=== PATIENT | female | born 1935 | race Caucasian/White ===

== ENCOUNTER → 2023-05-10 14:40 | Outpatient (REF) | payer MEDICARE, OTHER, SELFPAY | LOC: RCS 14:40 | PROVIDERS: ATTENDING PHYSICIAN Family Medicine | DX: I49.8 Other specified cardiac arrhythmias (principal) | CPT/HCPCS: 93005 ==

== ENCOUNTER → 2023-06-21 12:17 | Outpatient (REF) | payer MEDICARE, OTHER, SELFPAY ==
[2023-06-21 15:59] LABS: % Basophils 0.4 % (0-2); % Immature Granulocytes 0.7 % (0-0.5); % Lymphocytes 12.7 % (20.5-51.1); % Monocytes 6.9 % (1.7-9.3); % Neutrophils 78.3 % (42.2-75.2); Absolute Basophils 0.1 10^3/uL (0-0.2); Absolute Eosinophils 0.1 10^3/uL (0-0.7); Absolute Immature Granulocytes 0.1 10^3/uL (0-0.05); Absolute Lymphocytes 1.6 10^3/uL (1.2-3.4); Absolute Monocytes 0.9 10^3/uL (0.1-0.6); Hematocrit 33.9 % (37.0-47.0); Mean Corp Hgb Conc. 29.5 g/dL (33.0-37.0); Mean Corpuscular Hgb 26.9 pg (27.0-31.0); Mean Corpuscular Volume 91.1 fL (81.0-99.0); Nucleated Red Blood Cells % 0 %; Platelet Count 220 10^3/uL (130-400); Red Blood Cell Count 3.72 10^6/uL (4.20-5.40); Red Cell Dist. Width 16.6 % (11.5-14.5); White Blood Cell Count 12.8 10^3/uL (4.8-10.8)
[2023-06-21 16:11] LABS: D-Dimer 0.43 ug/mlFEU (0.00-0.50); Iron 48 ug/dl (37-170)
[2023-06-21 16:20] LABS: Percent Saturation 14 % (20-50); Total Iron Binding Capacity 337 ug/dl (265-497)
[2023-06-21 16:45] LABS: Ferritin 9.3 ng/ml (11.1-264.0)
== END ==
LOC: HWLAB 12:17
PROVIDERS: ATTENDING PHYSICIAN Internal Medicine Hematology & Oncology; FAMILY PHYSICIAN Family Medicine
DX: D47.2 Monoclonal gammopathy (principal); I82.401 Acute embolism and thrombosis of unspecified deep veins of right lower extremity; I82.4Z2 Acute embolism and thrombosis of unspecified deep veins of left distal lower extremity; D68.69 Other thrombophilia; E87.8 Other disorders of electrolyte and fluid balance, not elsewhere classified; D35.2 Benign neoplasm of pituitary gland
CPT/HCPCS: 36415; 82728; 83540; 83550; 85025; 85379

== ENCOUNTER → 2023-06-28 15:21 | Outpatient (REF) | payer MEDICARE, OTHER, SELFPAY ==
[2023-06-28 17:18] LABS: % Basophils 0.5 % (0-2); % Eosinophils 0.5 % (0-6); % Immature Granulocytes 0.9 % (0-0.5); % Lymphocytes 12.3 % (20.5-51.1); % Monocytes 4.6 % (1.7-9.3); % Neutrophils 81.2 % (42.2-75.2); Absolute Basophils 0.1 10^3/uL (0-0.2); Absolute Eosinophils 0.1 10^3/uL (0-0.7); Absolute Immature Granulocytes 0.1 10^3/uL (0-0.05); Absolute Lymphocytes 1.4 10^3/uL (1.2-3.4); Absolute Monocytes 0.5 10^3/uL (0.1-0.6); Absolute Neutrophils 8.9 10^3/uL (1.4-6.5); Hematocrit 35.2 % (37.0-47.0); Hemoglobin 10.7 g/dL (12.0-16.0); Mean Corp Hgb Conc. 30.4 g/dL (33.0-37.0); Mean Corpuscular Hgb 26.8 pg (27.0-31.0); Mean Platelet Volume 10.7 fL (7.4-10.4); Nucleated Red Blood Cells % 0 %; Platelet Count 253 10^3/uL (130-400); Red Cell Dist. Width 17.2 % (11.5-14.5); White Blood Cell Count 10.9 10^3/uL (4.8-10.8)
[2023-06-28 17:43] LABS: Vitamin D, 25-OH*** 53.3 ng/mL (30-80)
== END ==
LOC: OIDL 15:21
PROVIDERS: ATTENDING PHYSICIAN Nurse Practitioner Adult Health
DX: D47.2 Monoclonal gammopathy (principal); I82.401 Acute embolism and thrombosis of unspecified deep veins of right lower extremity; I82.4Z2 Acute embolism and thrombosis of unspecified deep veins of left distal lower extremity; D68.69 Other thrombophilia; D50.9 Iron deficiency anemia, unspecified; E55.9 Vitamin D deficiency, unspecified
CPT/HCPCS: 82306; 85025

== ENCOUNTER → 2023-07-05 15:58 | Outpatient (REF) | payer MEDICARE, OTHER, SELFPAY ==
[2023-07-05 14:55] LABS: % Basophils 0.2 % (0-2); % Eosinophils 0.5 % (0-6); % Immature Granulocytes 1.4 % (0-0.5); % Lymphocytes 10.6 % (20.5-51.1); % Monocytes 5.7 % (1.7-9.3); % Neutrophils 81.6 % (42.2-75.2); Absolute Eosinophils 0.1 10^3/uL (0-0.7); Absolute Immature Granulocytes 0.2 10^3/uL (0-0.05); Absolute Lymphocytes 1.6 10^3/uL (1.2-3.4); Absolute Monocytes 0.8 10^3/uL (0.1-0.6); Hemoglobin 10.8 g/dL (12.0-16.0); Mean Corpuscular Hgb 27.3 pg (27.0-31.0); Mean Corpuscular Volume 91.1 fL (81.0-99.0); Mean Platelet Volume 10.4 fL (7.4-10.4); Platelet Count 222 10^3/uL (130-400); Red Blood Cell Count 3.95 10^6/uL (4.20-5.40); Red Cell Dist. Width 18.7 % (11.5-14.5); White Blood Cell Count 14.7 10^3/uL (4.8-10.8)
[2023-07-05 16:30] LABS: Phosphorus 2.1 mg/dl (2.5-4.5)
== END ==
LOC: OIDL 15:58
PROVIDERS: ATTENDING PHYSICIAN Internal Medicine Hematology & Oncology
DX: D47.2 Monoclonal gammopathy (principal)
CPT/HCPCS: 84100; 85025

== ENCOUNTER → 2023-07-18 18:31 | Outpatient (REF) | payer MEDICARE, OTHER, SELFPAY | LOC: MRI 18:31 | PROVIDERS: ATTENDING PHYSICIAN Family Medicine | DX: M54.16 Radiculopathy, lumbar region (principal) | CPT/HCPCS: 72148 ==

== ENCOUNTER → 2023-07-28 10:06 | Outpatient (REF) | payer MEDICARE, OTHER, SELFPAY ==
[2023-07-28 12:15] LABS: ALT (SGPT) 62 U/L (0-35); AST (SGOT) 61 U/L (14-36); Albumin 4.4 g/dl (3.5-5.0); Alkaline Phosphatase 285 U/L (38-126); Blood Urea Nitrogen 18 mg/dl (7-17); Calcium 10.5 mg/dl (8.4-10.2); Carbon Dioxide 23 mmol/L (22-30); Chloride 111 mmol/L (98-107); Glucose 75 mg/dl (70-99); Potassium 3.8 mmol/L (3.5-5.1); Sodium 142 mmol/L (135-145); Total Bilirubin 0.6 mg/dl (0.2-1.3); Total Protein 6.7 g/dl (6.3-8.2); eGFR 49.24
[2023-07-28 12:33] LABS: Vitamin D, 25-OH*** 51.5 ng/mL (30-80)
== END ==
LOC: REG 10:06
PROVIDERS: ATTENDING PHYSICIAN Internal Medicine Endocrinology, Diabetes & Metabolism; FAMILY PHYSICIAN Family Medicine
DX: D49.7 Neoplasm of unspecified behavior of endocrine glands and other parts of nervous system (principal); E03.9 Hypothyroidism, unspecified; E27.40 Unspecified adrenocortical insufficiency; E55.9 Vitamin D deficiency, unspecified
CPT/HCPCS: 36415; 80053; 82306; 84439

== ENCOUNTER → 2023-08-03 11:57 | Outpatient (REF) | payer MEDICARE, OTHER, SELFPAY | LOC: MRI 3T 11:57 | PROVIDERS: ATTENDING PHYSICIAN Neurological Surgery; FAMILY PHYSICIAN Family Medicine | DX: D35.2 Benign neoplasm of pituitary gland (principal) | CPT/HCPCS: 70553; A9575 ==

== ENCOUNTER 2023-08-07 15:24 | Inpatient (IN) | payer MEDICARE, OTHER, SELFPAY ==
[2023-08-07] VITALS (10 sets, daily range): BP systolic 123–163; BP diastolic 64–83; BMI 31.8
--- NOTE | 2023-08-07 09:38 | ED.GENMED ---
History of Present Illness
<GOLDEN Arauz - Last Filed: 08/08/23 10:15>
General
Chief Complaint: Skin Problem
Source: patient
Exam Limitations: none
Time Seen by Provider: 08/07/23 09:00
Nursing documentation reviewed up to this point in time: agreed with
Travel History
Have you had any contact with someone who has COVID-19?: No
Do you have any symptoms of coronavirus? Fever > 100 degrees, chills, cough, shortness of breath, sore throat, loss of taste or smell, muscle aches, or headache?: No
History of Present Illness
History of Present Illness:
87-year-old female presents to the ER from [facility] for evaluation. Patient is chronic back pain and wanted to come to the ER today because of worsening low back pain. This is not new. She is followed by pain management and has had Epidural
She also reports that she noticed her legs were oozing and swollen. She does noticed redness to the left leg. She has a previous right leg DVT and Eliquis was just stopped July 27. She denies any recent injury fever chills
Past History
<GOLDEN Arauz - Last Filed: 08/08/23 10:15>
Past History
ED Past Medical History: Hypothyroidism and Other (Pituitary mass, constipation, adrenal insufficiency)
ED Past Surgical History: Cholecystectomy and Orthopedic
Social History
Tobacco: Non-smoker
Drug: None
Personal:
Living: with family
Employment: Retired
Family History
Family History: Other (No significant)
Review of Systems
<GOLDEN Arauz - Last Filed: 08/08/23 10:15>
Review of Systems
Allergies reviewed?: Yes
All Other Systems: ROS reviewed and negative except as documented in HPI and ROS
Constitutional: Denies fever, fatigue or chills
Respiratory: Reports no symptoms
Cardiac: Reports no symptoms
ABD/GI: Reports no symptoms
Musculoskeletal: Reports other ( legs oozing left greater then right + redness to left leg lchronic back pain )
Skin: Reports other (redness to left leg )
Neurological: Reports no symptoms
Hematologic/Lymphatic: Reports no symptoms
Psychiatric: Reports no symptoms
Phy Exam
<GOLDEN Arauz - Last Filed: 08/08/23 10:15>
General Physical Exam
General Presentation: no apparent distress
General age: appears stated age
General Skin: warm and dry
General Habitus: normal
General Mental: alert
General Hydration: appears well hydrated
Cardiovascular Exam
Cardiovascular Exam: regular rate/rhythm
Pulmonary Exam
Pulmonary Exam: lungs clear and no respiratory distress
Neurological Exam
Neurological Exam: alert and oriented x3
Musculoskeletal Exam
Musculoskeletal Exam: other (Normal inspection of back slight swelling bilateral lower extremities slight redness about lower extremities worse more on the left, left leg is redness to left lower leg and left thigh)
Skin Exam
Skin Exam: normal color and warm/dry
Psychiatric Exam
Psychiatric Exam: normal mood/affect
Course
<GOLDEN Arauz - Last Filed: 08/08/23 10:15>
Orders/Labs/Results
Orders:
Orders
08/07/23 09:37
IV Insert/Care/Rem.- Treatment PRN
Venous Doppler Lwr Ext Bilat [US Periph Venous LOWER Ext Nir] Urgent
Comment:
Reason For Exam: swelling
08/07/23 Lunch
Regular
At Your Request: Limited Participation
Does patient need a safe tray?: No
08/07/23 11:45
Complete Blood Count/With Diff Urgent
Comprehensive Metabolic Panel Urgent
08/07/23 13:47
CeFAZolin 1 GRAM [Ancef] 1 gram in 5 ml IV NOW
08/07/23 13:53
Lactic Acid Q4H
Comment: CANCEL 2nd LACTIC ACID IF 1st LACTIC ACID IS LESS THAN 2
Blood Culture Q30M
ROX Source: Blood/Venous
Specimen Description:
Blood Culture Q30M
ROX Source: Blood/Venous
Specimen Description:
08/07/23 14:45
Potassium Chloride [KCl] 40 meq PO NOW STA
08/07/23 14:59
Oxycodone [Roxicodone] 5 mg PO NOW STA
08/07/23 15:01
Admit/Transfer Patient As Directed
Co-Sign Provider:
Level of Care: Inpatient admission
Assign to:: Medical/Surgical
Physician / Group: hunter fernandes
Diagnosis: LLE cellulitis
Reason for Hospitalization: LLE cellulitis
Expected length of stay greater than two midnights?: Yes
ELOS- Estimated Length of Stay in days: 2
I certify the patient meets the requirements for IP care: Yes
08/07/23 15:02
Code Status As Directed
Resuscitation Status: Full Code
08/07/23 16:07
Acetaminophen [Tylenol] 1,000 mg PO QIDPRN PRN
Ondansetron Injectable [Zofran] 4 mg IV Q6HPRN PRN
Oxycodone [Roxicodone] 5 mg PO Q4HPRN PRN
08/07/23 16:07
Activity As Directed
Activity Level: Ambulate
Vital Signs As Directed
Frequency: Per unit guidelines
Pt Eval And Treat Routine
Activity Level: Ambulate
DX Deep Vein Thrombosis Video Routine
08/07/23 16:45
Tramadol HCl [Ultram] 100 mg PO Q8
08/07/23 18:00
Enoxaparin Sodium [Lovenox] 40 mg SC QPM
08/07/23 22:00
CeFAZolin 1 GRAM [Ancef] 1 gram in 5 ml IV Q8H
08/08/23 05:21
Basic Metabolic Panel IN AM
Complete Blood Count/No Diff IN AM
Magnesium IN AM
08/08/23 06:00
Levothyroxine [Synthroid] 50 mcg PO DAILY @ 0600
08/08/23 08:00
Calcium Polycarbophil [Fibercon] 625 mg PO DAILY
Desmopressin [Ddavp] 0.05 mg PO Q48H
Polyethylene Glycol Powder [Miralax] 17 grams PO DAILY
Prednisone [Deltasone] 10 mg PO DAILY
08/09/23 06:00
Basic Metabolic Panel IN AM
08/10/23 06:00
Basic Metabolic Panel IN AM
Abnormal Lab Results
08/07/23
11:45
MCHC 32.9 L g/dL
(33.0-37.0)
RDW 20.4 H %
(11.5-14.5)
MPV 10.6 H fL
(7.4-10.4)
Abs Immat Gran (auto) 0.1 H 10^3/uL
(0-0.05)
Absolute Monos (auto) 1.1 H 10^3/uL
(0.1-0.6)
Immature Gran % 1.3 H %
(0-0.5)
Monocytes % 11.2 H %
(1.7-9.3)
Sodium 146 H mmol/L
(135-145)
Potassium 3.2 L mmol/L
(3.5-5.1)
Chloride 109 H mmol/L
(98-107)
AST 42 H U/L
(14-36)
ALT 82 H U/L
(0-35)
Alkaline Phosphatase 401 H U/L
(38-126)
08/07/23 11:45
08/07/23 11:45
Vital Signs
Initial and Last Documented VS:
Initial Vital Signs
Temp Pulse Resp BP Pulse Ox
98.4 F 55 16 163/76 98
08/07/23 08:52 08/07/23 08:52 08/07/23 08:52 08/07/23 08:52 08/07/23 08:52
Last Documented Vital Signs
Temp Pulse Resp BP Pulse Ox
97.9 F 54 16 111/68 95
08/08/23 07:40 08/08/23 07:40 08/08/23 07:40 08/08/23 07:40 08/08/23 07:40
Fish Cleaner consulted with Physician
Fish Cleaner consulted with physician?: Yes
Name of Physician Consulted: Anatoly
<Andrea Lombardi MD - Last Filed: 08/07/23 13:24>
Orders/Labs/Results
Orders:
Orders
08/07/23 09:37
IV Insert/Care/Rem.- Treatment PRN
Venous Doppler Lwr Ext Bilat [US Periph Venous LOWER Ext Nir] Urgent
Comment:
Reason For Exam: swelling
08/07/23 Lunch
Regular
At Your Request: Limited Participation
Does patient need a safe tray?: No
08/07/23 11:45
Complete Blood Count/With Diff Urgent
Comprehensive Metabolic Panel Urgent
08/07/23 13:47
CeFAZolin 1 GRAM [Ancef] 1 gram in 5 ml IV NOW
08/07/23 13:53
Lactic Acid Q4H
Comment: CANCEL 2nd LACTIC ACID IF 1st LACTIC ACID IS LESS THAN 2
Blood Culture Q30M
ROX Source: Blood/Venous
Specimen Description:
Blood Culture Q30M
ROX Source: Blood/Venous
Specimen Description:
08/07/23 14:45
Potassium Chloride [KCl] 40 meq PO NOW STA
08/07/23 14:59
Oxycodone [Roxicodone] 5 mg PO NOW STA
08/07/23 15:01
Admit/Transfer Patient As Directed
Co-Sign Provider:
Level of Care: Inpatient admission
Assign to:: Medical/Surgical
Physician / Group: hunter fernandes
Diagnosis: LLE cellulitis
Reason for Hospitalization: LLE cellulitis
Expected length of stay greater than two midnights?: Yes
ELOS- Estimated Length of Stay in days: 2
I certify the patient meets the requirements for IP care: Yes
08/07/23 15:02
Code Status As Directed
Resuscitation Status: Full Code
08/07/23 16:07
Acetaminophen [Tylenol] 1,000 mg PO QIDPRN PRN
Ondansetron Injectable [Zofran] 4 mg IV Q6HPRN PRN
Oxycodone [Roxicodone] 5 mg PO Q4HPRN PRN
08/07/23 16:07
Activity As Directed
Activity Level: Ambulate
Vital Signs As Directed
Frequency: Per unit guidelines
Pt Eval And Treat Routine
Activity Level: Ambulate
DX Deep Vein Thrombosis Video Routine
08/07/23 16:45
Tramadol HCl [Ultram] 100 mg PO Q8
08/07/23 18:00
Enoxaparin Sodium [Lovenox] 40 mg SC QPM
08/07/23 22:00
CeFAZolin 1 GRAM [Ancef] 1 gram in 5 ml IV Q8H
08/08/23 05:21
Basic Metabolic Panel IN AM
Complete Blood Count/No Diff IN AM
Magnesium IN AM
08/08/23 06:00
Levothyroxine [Synthroid] 50 mcg PO DAILY @ 0600
08/08/23 08:00
Calcium Polycarbophil [Fibercon] 625 mg PO DAILY
Desmopressin [Ddavp] 0.05 mg PO Q48H
Polyethylene Glycol Powder [Miralax] 17 grams PO DAILY
Prednisone [Deltasone] 10 mg PO DAILY
08/09/23 06:00
Basic Metabolic Panel IN AM
08/10/23 06:00
Basic Metabolic Panel IN AM
Abnormal Lab Results
08/07/23
11:45
MCHC 32.9 L g/dL
(33.0-37.0)
RDW 20.4 H %
(11.5-14.5)
MPV 10.6 H fL
(7.4-10.4)
Abs Immat Gran (auto) 0.1 H 10^3/uL
(0-0.05)
Absolute Monos (auto) 1.1 H 10^3/uL
(0.1-0.6)
Immature Gran % 1.3 H %
(0-0.5)
Monocytes % 11.2 H %
(1.7-9.3)
Sodium 146 H mmol/L
(135-145)
Potassium 3.2 L mmol/L
(3.5-5.1)
Chloride 109 H mmol/L
(98-107)
AST 42 H U/L
(14-36)
ALT 82 H U/L
(0-35)
Alkaline Phosphatase 401 H U/L
(38-126)
08/07/23 11:45
08/07/23 11:45
Vital Signs
Initial and Last Documented VS:
Initial Vital Signs
Temp Pulse Resp BP Pulse Ox
98.4 F 55 16 163/76 98
08/07/23 08:52 08/07/23 08:52 08/07/23 08:52 08/07/23 08:52 08/07/23 08:52
Last Documented Vital Signs
Temp Pulse Resp BP Pulse Ox
97.9 F 54 16 111/68 95
08/08/23 07:40 08/08/23 07:40 08/08/23 07:40 08/08/23 07:40 08/08/23 07:40
<GOLDEN Arauz - Last Filed: 08/08/23 10:15>
MDM/Problems Addressed
Differential Diagnosis Includes:
not limited to: edema, dvt, cellulitis acute on chronic back pain
MDM/Problems Addressed:
Patient is an 87-year-old female who presents from [facility] with acute exacerbation of chronic low back pain with no acute injury. Denies any recent fever or chills. In addition she complains of bilateral swelling of lower extremity. She
does h ave a history of prior DVT however anticoagulation was recently stopped. Ultrasound done and negative. Left lower extremity does have redness consistent with cellulitis. With cellulitis and back pain will admit IV antibiotics ordered will
likely need PT. Patient is afebrile non toxic appearing
Chronic conditions affecting care:
chronic back pain ,hx of dvt
<GOLDEN Arauz - Last Filed: 08/08/23 10:15>
*Critical Care Note
Total Time (30-74mins, 75-104mins- exclusive of procedures): Not Applicable
ED Attending Note
<GOLDEN Arauz - Last Filed: 08/08/23 10:15>
-
Portions of this chart may have been created with voice recognition software.� Occasional wrong word or��sound alike� substitutions may have occurred due to the inherent limitations of voice recognition software.
<Andrea Lombardi MD - Last Filed: 08/07/23 13:24>
ED Attending Note
Patient seen and examined by attending physician: Yes
I performed the substantive portion of visit, reviewed & personally made and approve the management plan that is documented in note by myself or ISIDORO.: Yes
ED Attending Note:
87-year-old female 2 complaints. Chronic back pain that is worse and weeping from the left leg. No fever chills or other complaints
Patient with erythema to left lower leg. Motor or sensory neurovascular intact. No cord. Significant back pain with the active sitting up. Nonfocal. Abdomen is soft and nontender.
Cellulitis left lower leg. Acute on chronic back pain.
Discharge Plan
Departure
Patient Disposition: Admit
Date of Disposition: 08/07/23
Time of Disposition: 13:44
Admit to: Med/Surg
Admit to doctor: hospitalist
Presentation/result/management discussed w/ accepting MD/DO: Hospitalist
Patient with high blood pressure during this ER visit?: Yes
Condition: Fair
Covid-19: Not Applicable
Discharge Problem:
Cellulitis, Acute exacerbation of chronic low back pain
Interventions
Interventions:
*Risk Screen - Suicide Last Done: 08/07/23 09:01
*General Assessment Last Done: 08/07/23 09:01
*Neglect/Abuse Screening Last Done: 08/07/23 09:01
ED- Fall Risk Assessment Last Done: 08/07/23 09:01
*ED COVID-19 Vaccine History Last Done: 08/07/23 08:52
*Nursing Disposition Last Done: 08/07/23 16:13
ED-Skin Assessment Last Done: 08/07/23 09:01
Discharge Date and Time
Discharge Date/Time: 08/07/23 16:13
[2023-08-07 11:57] LABS: % Basophils 0.3 % (0-2); % Eosinophils 1.3 % (0-6); % Immature Granulocytes 1.3 % (0-0.5); % Monocytes 11.2 % (1.7-9.3); % Neutrophils 58.9 % (42.2-75.2); Absolute Eosinophils 0.1 10^3/uL (0-0.7); Absolute Immature Granulocytes 0.1 10^3/uL (0-0.05); Absolute Lymphocytes 2.7 10^3/uL (1.2-3.4); Absolute Monocytes 1.1 10^3/uL (0.1-0.6); Hemoglobin 13.8 g/dL (12.0-16.0); Mean Corp Hgb Conc. 32.9 g/dL (33.0-37.0); Mean Corpuscular Hgb 29.4 pg (27.0-31.0); Mean Corpuscular Volume 89.4 fL (81.0-99.0); Mean Platelet Volume 10.6 fL (7.4-10.4); Nucleated Red Blood Cells % 0 %; Platelet Count 181 10^3/uL (130-400); Red Cell Dist. Width 20.4 % (11.5-14.5); White Blood Cell Count 10.1 10^3/uL (4.8-10.8)
[2023-08-07 12:13] LABS: ALT (SGPT) 82 U/L (0-35); AST (SGOT) 42 U/L (14-36); Albumin 4.5 g/dl (3.5-5.0); Alkaline Phosphatase 401 U/L (38-126); Blood Urea Nitrogen 17 mg/dl (7-17); Calcium 9.6 mg/dl (8.4-10.2); Carbon Dioxide 28 mmol/L (22-30); Chloride 109 mmol/L (98-107); Estimated Creatinine Clearance 37 ml/min; Glucose 78 mg/dl (70-99); Potassium 3.2 mmol/L (3.5-5.1); Sodium 146 mmol/L (135-145); Total Protein 6.9 g/dl (6.3-8.2); eGFR 55.21
[2023-08-07] MEDS: ANCEF 5 IV ×2 (13:59→21:50)
[2023-08-07 14:14] LABS: Lactic Acid 1.6 mmol/L (0.7-2.0)
--- NOTE | 2023-08-07 14:43 | HPS.HSE ---
Family Physician
-
Family Physician: Magaly Hill
Chief Complaint
-
chronic back pain and leg edema
History of Present Illness
87-year-old female with a past medical history of pituitary macroadenoma, adrenal insufficiency on chronic steroids, hypothyroidism, left lower extremity DVT in October 2021, hemorrhoids, and chronic urine incontinence presents with chronic lower
back pain and chronic lower extremity edema. Patient recently got an epidural spinal injection on 07/31/2023, but still reports severe back pain with movement. She also reports chronic bilateral lower extremity edema. She has new onset left lower
extremity erythema and warmth, for the past 4 days. She denies leg pain. She denies chest pain, shortness of breath, palpitations. No fever, no nausea, no vomiting.
She used to be on Eliquis for her history of DVT. This has been held for several weeks now, secondary to bleeding hemorrhoids. She has a colonoscopy scheduled with GI, Dr. Wilks.
Medical History
Past Medical History
Past Medical History: Reports Other
Additional Past Medical History:
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
Adrenal insufficiency on chronic steroids
Hypothyroidism
PACs
History of bradycardia
History of labile BP
History of LLE DVT 10/2021
Septic meningitis
Chronic urine incontinence
Past Surgical History: Reports Cholecystectomy and Orthopedic
Social History
Tobacco: Non-smoker
Drug: None
Personal:
Family History
Family History: Not pertinent
Allergies / Home Medications
Allergies reflects when Allergies were last updated in [facility].
Home Medications with original date entered in [facility]
Allergy/Medication List:
Allergies
Allergy/AdvReac Type Severity Reaction Status Date / Time
garlic Allergy Unknown Verified 08/07/23 08:53
Penicillins Allergy stomach Verified 08/07/23 08:53
distention
Home Medications Table - record
�Medication �Instructions �Recorded �Confirmed
cholecalciferol (vitamin D3) 50 2,000 unit PO DAILY Supplement 05/20/15 08/07/23
mcg (2,000 unit) capsule (Vitamin
D3)
desmopressin 0.1 mg tablet 0.05 mg PO Q48H ENDOCRINE DISORDER 06/20/22 08/07/23
prednisone 5 mg tablet 10 mg PO DAILY STEROID 06/20/22 08/07/23
B-complex with vitamin C 1 cap PO DAILY 08/07/23 08/07/23
acetaminophen 650 mg 1,300 mg PO Q8HPRN PRN mild pain 08/07/23 08/07/23
tablet,extended release (Tylenol 8
Hour)
apixaban 5 mg tablet (Eliquis) 5 mg PO BID 08/07/23 08/07/23
ascorbic acid 30 mg-collagen, 1 tab PO DAILY 08/07/23 08/07/23
hydrolyzed 833.3 mg tablet
(Collagen Skin Renewal)
inulin-sorbitol 2 gram chewable 2 tab PO DAILY 08/07/23 08/07/23
tablet
levothyroxine 50 mcg tablet 50 mcg PO DAILY 08/07/23 08/07/23
tramadol 50 mg tablet 100 mg PO Q8H 08/07/23 08/07/23
Review of Systems
-
A 12 point ROS was completed and negative except as noted: Yes
Physical Exam
Vital Signs
Vital Signs
Temp Pulse Resp BP Pulse Ox
98.4 F 55 16 124/77 97
08/07/23 08:52 08/07/23 08:52 08/07/23 08:52 08/07/23 12:00 08/07/23 12:30
Physical Exam
General: Well Developed, Well Nourished and No Apparent Distress
HEENT: NormoCephalic, Anicteric and Moist mucous membranes
Respiratory: Clear
Cardiac: S1/S2
GI: Soft
Musculoskeletal: Edema, Left Lower Extremity and Edema, Right Lower Extremity
Skin: Other (LLE is warm to the touch, with erythema from the ankle to the lower thigh)
Neuro: Awake, Alert and Oriented
Psych: Calm
Laboratory Results
-
08/07/23 11:45
08/07/23 11:45
Laboratory Results
Lactic Acid 1.6 mmol/L (0.7-2.0) 08/07/23 13:53
Total Bilirubin 1.0 mg/dl (0.2-1.3) 08/07/23 11:45
AST 42 U/L (14-36) H 08/07/23 11:45
ALT 82 U/L (0-35) H 08/07/23 11:45
Alkaline Phosphatase 401 U/L (38-126) H 08/07/23 11:45
Impression/Plan
-
HPI: 87-year-old female with a past medical history of pituitary macroadenoma, adrenal insufficiency on chronic steroids, hypothyroidism, left lower extremity DVT in October 2021, hemorrhoids, and chronic urine incontinence presents with chronic
lower back pain and chronic lower extremity edema. Patient recently got an epidural spinal injection on 07/31/2023, but still reports severe back pain with movement. She also reports chronic bilateral lower extremity edema. She has new onset left
lower extremity erythema and warmth, for the past 4 days. She denies leg pain. She denies chest pain, shortness of breath, palpitations. No fever, no nausea, no vomiting.
She used to be on Eliquis for her history of DVT. This has been held for several weeks now, secondary to bleeding hemorrhoids. She has a colonoscopy scheduled with GI, Dr. Wilks.
#Acute left lower extremity cellulitis
Continue IV Ancef
#Hypokalemia
Replete, recheck a.m.
#Hypernatremia
Sodium 146, continue to monitor for now
#Bilateral lower extremity edema
Lower extremity Dopplers negative for DVT
#Chronic lower back pain
Last epidural spinal injection 08/07/2023
Continue tramadol 100 mg every 8 hours, add oxycodone 5 mg every 4 hours as needed pain
Recommend she follow-up with pain management in the office
#Recent bleeding hemorrhoids
She stopped Eliquis a few weeks ago for this
She has a colonoscopy scheduled with GI, Dr. Wilks
#Pituitary macroadenoma
#Adrenal insufficiency
Continue prednisone 10 mg daily, desmopressin 0.05 mg every 48 hours
#Hypothyroidism
Continue Synthroid
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
DVT prophylaxis�subcu Lovenox
Full code
Total time spent to see the patient on the floor, examine the patient, review data and lab results, discuss treatment plan with patient, nursing staff around 75 minutes.
[2023-08-07] MEDS: KCL 40 MEQ PO (15:08)
[2023-08-07] MEDS: ROXICODONE 5 MG PO (15:09)
[2023-08-07] MEDS: ULTRAM 100 MG PO ×2 (17:32→23:33)
[2023-08-07] MEDS: LOVENOX 40 MG SC (17:32)
[2023-08-08 05:38] LABS: Hematocrit 42.1 % (37.0-47.0); Hemoglobin 13.8 g/dL (12.0-16.0); Mean Corp Hgb Conc. 32.8 g/dL (33.0-37.0); Mean Corpuscular Hgb 29.8 pg (27.0-31.0); Mean Corpuscular Volume 90.9 fL (81.0-99.0); Mean Platelet Volume 10.1 fL (7.4-10.4); Platelet Count 182 10^3/uL (130-400); Red Blood Cell Count 4.63 10^6/uL (4.20-5.40); Red Cell Dist. Width 21.4 % (11.5-14.5); White Blood Cell Count 9.1 10^3/uL (4.8-10.8)
[2023-08-08] MEDS: ANCEF 5 IV ×2 (05:41→14:46)
[2023-08-08] MEDS: SYNTHROID 50 MCG PO (05:41)
[2023-08-08 06:25] LABS: Blood Urea Nitrogen 16 mg/dl (7-17); Calcium 9.2 mg/dl (8.4-10.2); Carbon Dioxide 23 mmol/L (22-30); Chloride 113 mmol/L (98-107); Estimated Creatinine Clearance 31 ml/min; Glucose 86 mg/dl (70-99); Magnesium 2.5 mg/dl (1.6-2.3); Potassium 3.8 mmol/L (3.5-5.1); Sodium 145 mmol/L (135-145); eGFR 44.36
[2023-08-08 07:40] VITALS: BP 111/68
[2023-08-08] MEDS: DDAVP 0.0500000000000000028 MG PO (08:42)
[2023-08-08] MEDS: ULTRAM 100 MG PO ×3 (08:43→23:17)
[2023-08-08] MEDS: DELTASONE 10 MG PO (08:43)
[2023-08-08] MEDS: FIBERCON 625 MG PO (08:43)
[2023-08-08] MEDS: MIRALAX 17 GRAMS PO (08:44)
--- NOTE | 2023-08-08 10:07 | PHA.VAN.IN ---
Assessment
- Assessment
Renal Function: Appears elevated from baseline (SCR slightly elevated at 1.2 vs ~0.8-1)
Concomitant Antimicrobials: cefazolin
- Previous Dosing Experience
Previous Regimen: Vanc 1000mg Q24H
Date of Regimen: July 2022
Provided Trough of: 10.8
Provided AUC of: 401
Patient's SCR is: Decreased compared to previous dosing experience (SCR 0.6-0.8 vs 1.2 today)
Patient's weight is: Elevated compared to previous dosing experience (currently 73.8kg vs ~63 kg)
Regimen provided the following additional patient-specific PK:
Extrapolated Cmax: 26.5 mcg/ml
Extrapolated Cmin: 9.6 mcg/ml
ke: 0.0441
half-life = 15.7 H
Vd = 57 L (~0.9 L/kg)
Vanc Cl = 42 ml/min
Dosing was increased to Vanc 1250mg Q24H due to possible ELECTRICAL WIRER infection (predicted AUC 517, peak 33.8, trough 12.5 using patient-specific PK but noted may have additional accumulation as levels were drawn around 3rd maintenance dose)
Plan
- Plan
Initial / Loading Dose: 2000mg - administration pending
Maintenance Regimen: dosing by level given slight elevation in SCR
Monitorin08/08 599
Pharmacokinetics Vancomycin I
- -
Patient Age: 87
Patient Sex: Female
Vancomycin Day #: 1
Indication: Bacteremia
Requesting Provider: Dr. Bell
Pertinent Antimicrobial Allergies:
penicillins - stomach distention; tolerated ampicillin
Height / Weight:
Height 5 ft
Actual Weight 73.8 kg
Pertinent Past Medical History: BMI ~32, Chronic prednisone
- Vital Signs / Lab Results
Temp Pulse Resp BP Pulse Ox
97.9 F 54 16 111/68 95
08/08/23 07:40 08/08/23 07:40 08/08/23 07:40 08/08/23 07:40 08/08/23 07:40
Lab Results - Hematology
08/07/23 08/08/23
11:45 05:21
WBC 10.1 9.1
Lab Results - Chemistry
08/07/23 08/08/23
11:45 05:21
BUN 17 16
Creatinine 1.0 1.2 H
Estimated Creat Clear 37 31
Albumin 4.5
08/07/23 08/07/23
13:53 17:45
Lactic Acid 1.6 Cancelled
Microbiology Results
08/07/23 13:53 Blood Culture - Preliminary
Blood/Venous Staph aureus MRSA
Gram Stain - Final
08/07/23 13:53 Blood Culture - Preliminary
Blood/Venous Positive culture in progress
Gram Stain - Preliminary
[2023-08-08 10:18] VITALS: BP 123/74; PULSE 41; O2SAT 92
[2023-08-08] MEDS: VANCOCIN 540 MG IV (10:32)
--- NOTE | 2023-08-08 10:44 | CM ---
Met with pt at bedside
Pt reports she lives alone in an apartment at [facility]
Ambulates with rollator, does on shopping, cooking as needed
DME - rollator
SNF - denies past hx
HH - Has had in past through [facility]
Has ride at d/c
PCP - Magaly Hill
Pharm - [facility]
CM will follow for d/c needs
Plan - anticipate home no needs vs with HH
[2023-08-08 12:00] VITALS: BP 139/75
[2023-08-08 12:35] VITALS: BMI 29.8
--- NOTE | 2023-08-08 12:39 | PTCARENOTE ---
Received pt from [facility], pt ambulated to the bed from stretch with assist of RW, VSS, pt resting comfortably in bed at this time.
--- NOTE | 2023-08-08 15:01 | W.PN.HOSP.TC ---
Today's Communication/Plan
-
see bold
Assessment / Plan
Assessment / Plan
HPI: 87-year-old female with a past medical history of pituitary macroadenoma, adrenal insufficiency on chronic steroids, hypothyroidism, left lower extremity DVT in October 2021, hemorrhoids, and chronic urine incontinence presents with chronic
lower back pain and chronic lower extremity edema. Patient recently got an epidural spinal injection on 07/31/2023, but still reports severe back pain with movement. She also reports chronic bilateral lower extremity edema. She has new onset left
lower extremity erythema and warmth, for the past 4 days. She denies leg pain. She denies chest pain, shortness of breath, palpitations. No fever, no nausea, no vomiting.
She used to be on Eliquis for her history of DVT. This has been held for several weeks now, secondary to bleeding hemorrhoids. She has a colonoscopy scheduled with [facility], Dr. Wilks.
#Acute left lower extremity cellulitis
#MRSA bacteremia
Start vancomycin, stop Ancef
Recheck blood cultures today
Check echo on Monday
#Hypokalemia
Repleted and resolved, Mg high
#Hypernatremia
Resolved, sodium 145 today
#Bilateral lower extremity edema
Lower extremity Dopplers negative for DVT
#Chronic lower back pain
Last epidural spinal injection 08/07/2023
Continue tramadol 100 mg every 8 hours, add oxycodone 5 mg every 4 hours as needed pain
Recommend she follow-up with pain management in the office
#Recent bleeding hemorrhoids
She stopped Eliquis a few weeks ago for this
She has a colonoscopy scheduled with Dr. Efe DIAZ
#Pituitary macroadenoma
#Adrenal insufficiency
Continue prednisone 10 mg daily, desmopressin 0.05 mg every 48 hours
#Hypothyroidism
Continue Synthroid
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
DVT prophylaxis�subcu Lovenox
Full code
Called son to give him an update, left message 08/07
Total time spent to see the patient on the floor, examine the patient, review data and lab results, discuss treatment plan with patient, nursing staff around 50 minutes.
Physical Exam
General: No acute distress
HEENT: Normocephalic, Atraumatic, EOMI, MMM
Respiratory: Clear to Auscultation bilaterally
Cardiac: Normal S1/S2, Regular Rate and Rhythm
GI: Soft, Nontender, Nondistended, Normal Bowel Sounds
Extremities: No Clubbing, Cyanosis
Severe erythema and warmth of the left lower extremity from the ankle to the thigh
Bilateral lower extremity edema noted
Neuro: Nonfocal/Grossly Intact
Psych: Calm, Cooperative
Derm: No Visible lesions
Anticipated Discharge: > 48 hours
Subjective/Interval History
-
Date of Service: August 08, 2023
Patient is comfortable at rest. Complains of severe lower back pain with ambulation. No fever, no vomiting.
Objective Data
-
Labs:
Laboratory Results
08/08/23
05:21
WBC 9.1
Hgb 13.8
Hct 42.1
Plt Count 182
Sodium 145
Potassium 3.8
Chloride 113 H
Carbon Dioxide 23
BUN 16
Creatinine 1.2 H
Glucose 86
Calcium 9.2
Vital Signs:
Vital Signs
Temp Pulse Resp BP Pulse Ox
97.9 F 54 16 111/68 95
08/08/23 07:40 08/08/23 07:40 08/08/23 07:40 08/08/23 07:40 08/08/23 07:40
I&O
08/07/23 08/08/23 08/09/23
06:59 06:59 06:59
Intake Total 780 / 780
Output Total 375 / 375
Balance 405 / 405
[2023-08-08 15:51] VITALS: BP 111/65
[2023-08-08] MEDS: LOVENOX 40 MG SC (17:00)
[2023-08-08 23:30] VITALS: BP 129/78
--- NOTE | 2023-08-09 03:53 | DOWNTIME ---
There was a [employer] Client Deputy Editor In Chief Downtime on 08/09/2023 from 0100 to 08/09/2023 at 0337. Downtime documentation of patient's care, including medication administrations, has been reconciled in the electronic record per guidelines. Refer to the
patient's paper chart under the miscellaneous tab to see printed paper medication records and downtime forms.
[2023-08-09] MEDS: SYNTHROID 50 MCG PO (05:38)
[2023-08-09 07:22] LABS: Vancomycin Random 13.4 ug/ml
[2023-08-09 07:29] LABS: Blood Urea Nitrogen 17 mg/dl (7-17); Calcium 9.1 mg/dl (8.4-10.2); Carbon Dioxide 21 mmol/L (22-30); Chloride 109 mmol/L (98-107); Estimated Creatinine Clearance 40 ml/min; Glucose 86 mg/dl (70-99); Potassium 4.2 mmol/L (3.5-5.1); Sodium 139 mmol/L (135-145); eGFR > 60.00
[2023-08-09 07:30] VITALS: BP 141/75
--- NOTE | 2023-08-09 07:46 | PHA.VAN.FU ---
Vancomycin Assessment / Plan
- Assessment
Renal Function: SCR Decreasing
WBC's are: WNL
In the past 24 hrs, patient has been: Afebrile
- Assessment - Therapeutic Drug Monitoring
Random Level: 13.4 - drawn ~19.5H after 2g loading dose
- Dosing Plan
Dosing by Level: Re-dose today (Vanc 1000mg)
SCR has wavered slightly this admission - will keep dose by level for today to trend SCR & level before scheduling further dosing
- Monitoring Plan
Random Level: 08/09 0600
- Follow Up
Pharmacy will continue to follow.
Vancomycin Follow UP
- -
Patient Age: 87
Patient Sex: Female
Vancomycin Day #: 2
Indication: Bacteremia
Requesting Provider: Dr. Bell
Pertinent Antimicrobial Allergies:
penicillins - stomach distention; tolerated ampicillin
Height / Weight:
Height 5 ft
Actual Weight 69.127 kg
Pertinent Past Medical History: BMI ~32, Chronic prednisone
- Vital Signs / Lab Results
Temp Pulse Resp BP Pulse Ox
97.8 F 50 18 141/75 96
08/09/23 07:30 08/09/23 07:30 08/09/23 07:30 08/09/23 07:30 08/09/23 07:30
Lab Results - Hematology
08/07/23 08/08/23
11:45 05:21
WBC 10.1 9.1
Lab Results - Chemistry
08/07/23 08/08/23 08/09/23
11:45 05:21 06:16
BUN 17 16 17
Creatinine 1.0 1.2 H 0.9
Estimated Creat Clear 37 31 40
Albumin 4.5
08/07/23 08/07/23
13:53 17:45
Lactic Acid 1.6 Cancelled
Microbiology Results
08/07/23 13:53 Blood Culture - Preliminary
Blood/Venous Staph aureus MRSA
Gram Stain - Final
08/07/23 13:53 Blood Culture - Preliminary
Blood/Venous Positive culture in progress
Gram Stain - Preliminary
Therapeutic Drug Monitoring
Random Vancomycin 13.4 ug/ml 08/09/23 06:16
--- NOTE | 2023-08-09 08:52 | W.PN.HOSP.TC ---
Today's Communication/Plan
-
see bold
Assessment / Plan
Assessment / Plan
HPI: 87-year-old female with a past medical history of pituitary macroadenoma, adrenal insufficiency on chronic steroids, hypothyroidism, left lower extremity DVT in October 2021, hemorrhoids, and chronic urine incontinence presents with chronic
lower back pain and chronic lower extremity edema. Patient recently got an epidural spinal injection on 07/31/2023, but still reports severe back pain with movement. She also reports chronic bilateral lower extremity edema. She has new onset left
lower extremity erythema and warmth, for the past 4 days. She denies leg pain. She denies chest pain, shortness of breath, palpitations. No fever, no nausea, no vomiting.
She used to be on Eliquis for her history of DVT. This has been held for several weeks now, secondary to bleeding hemorrhoids. She has a colonoscopy scheduled with [facility], Dr. Wilks.
#Acute left lower extremity cellulitis
#MRSA bacteremia
Status post IV Ancef, continue vancomycin
Blood cultures have been repeated to document clearance
Echocardiogram ordered for tomorrow, consult ID
#Hypokalemia
Repleted and resolved, Mg high
#Hypernatremia
Resolved
#Bilateral lower extremity edema
Lower extremity Dopplers negative for DVT
#Chronic lower back pain
S/p epidural spinal injection 07/31/2023 (it was her first one)
Continue tramadol 100 mg every 8 hours, added oxycodone 5 mg every 4 hours as needed pain
Recommend she follow-up with pain management in the office
#Recent bleeding hemorrhoids
She stopped Eliquis a few weeks ago for this
She has a colonoscopy scheduled with Dr. Efe DIAZ
#Pituitary macroadenoma
#Adrenal insufficiency
Continue prednisone 10 mg daily, desmopressin 0.05 mg every 48 hours
#Hypothyroidism
Continue Synthroid
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
DVT prophylaxis�subcu Lovenox
Full code
Updated son on phone 08/08
Total time spent to see the patient on the floor, examine the patient, review data and lab results, discuss treatment plan with patient, nursing staff around 36 minutes.
Physical Exam
General: No acute distress
HEENT: Normocephalic, Atraumatic, EOMI, MMM
Respiratory: Clear to Auscultation bilaterally
Cardiac: Normal S1/S2, Regular Rate and Rhythm
GI: Soft, Nontender, Nondistended, Normal Bowel Sounds
Extremities: No Clubbing, Cyanosis
Severe erythema and warmth of the left lower extremity from the ankle to the thigh
Bilateral lower extremity edema noted
Neuro: Nonfocal/Grossly Intact
Psych: Calm, Cooperative
Derm: No Visible lesions
Anticipated Discharge: 24 - 48 hours
Subjective/Interval History
-
Date of Service: August 09, 2023
Objective Data
-
Labs:
Laboratory Results
08/09/23
06:16
Sodium 139
Potassium 4.2
Chloride 109 H
Carbon Dioxide 21 L
BUN 17
Creatinine 0.9
Glucose 86
Calcium 9.1
Vital Signs:
Vital Signs
Temp Pulse Resp BP Pulse Ox
97.8 F 50 18 141/75 96
08/09/23 07:30 08/09/23 07:30 08/09/23 07:30 08/09/23 07:30 08/09/23 07:30
I&O
08/08/23 08/09/23 08/10/23
06:59 06:59 06:59
Intake Total 780 / 780 440 / 440
Output Total 375 / 375
Balance 405 / 405 440 / 440
[2023-08-09] MEDS: DELTASONE 10 MG PO (09:02)
[2023-08-09] MEDS: ULTRAM 100 MG PO ×2 (09:02→16:11)
[2023-08-09] MEDS: FIBERCON 625 MG PO (09:03)
[2023-08-09] MEDS: MIRALAX PO (09:04)
--- NOTE | 2023-08-09 09:50 | WOUNDNOTE ---
WON RN note: Patient admitted with cellulitis, acute exacerbation of chronic low back pain.
See H&P for complete history. Lives alone at [facility].
PMH: DVT, Pituitary gland tumor, UTI, adrenal insufficiency on chronic steroids, arthritis, chronic back pain-recent epidural spinal injection on 07/31/23.
Wound Location and type/assessment: Patient admitted with: cellulitis and edema in legs, weeping L lower ankle. Today L ankle with intact scab, no drainage or pain. Patient reports she has much less swelling and redness since admission. Patient
uses closed toe compression stockings at home, she got from [facility]. Patient able to turn to sides, sacrum and heels blanchable red. Plantar feet blanchable light purple and tips of some toes, skin cool, + palpable pedal pulses. Patient reports
discoloration and coolness not new. Vascular ultrasound negative for DVT.
Appetite: Good.
Pressure redistribution devices in place:On versa care air patient turns self. Pillow under calves.
Plan: Moisturized legs with A&D ointment, will order mineral oil. ABD pad placed over L medial ankle then shivam wraps knee high both legs. Leg elevation when sitting. Will confirm orders with hospitalist and updated nurse Concepcion.
Updated care plan and will follow as needed.
Note to case management of equipment requested for discharge: None.
Recommend follow up at wound care center if needed, upon discharge.
[2023-08-09] MEDS: VANCOCIN 200 IV (10:57)
--- NOTE | 2023-08-09 12:07 | CM ---
Patient seen bedside.
Discussed d/c planning with patient.
PT recommending skilled rehab vs home with HC.
Options discussed and preference is [facility], referrals placed. However patient would prefer home with [facility] if improvement with therapy.
[facility] of choice is [facility].
Plan: home with skilled vs [facility], referrals placed.
[2023-08-09 15:17] VITALS: BP 142/63
[2023-08-09 16:10] VITALS: BP 125/79; BP 134/69; PULSE 62; O2SAT 98
--- NOTE | 2023-08-09 16:18 | CM ---
Patient seen bedside.
Discussed d/c planning with patient.
PT recommending skilled rehab vs home with HC.
Options discussed and preference is [facility] or [facility] home, referrals placed. However patient would prefer home with [facility] if improvement with therapy.
[facility] of choice is [facility].
Plan: Skilled rehab vs home with V[facility], referrals placed.
[2023-08-09] MEDS: LOVENOX 40 MG SC (17:14)
[2023-08-09 23:04] VITALS: BP 137/71
[2023-08-10] MEDS: ULTRAM 100 MG PO ×4 (00:24→23:38)
[2023-08-10 06:00] VITALS: BMI 30.3
[2023-08-10] MEDS: SYNTHROID 50 MCG PO (06:25)
[2023-08-10 06:54] LABS: Hematocrit 37.6 % (37.0-47.0); Hemoglobin 12.3 g/dL (12.0-16.0); Mean Corp Hgb Conc. 32.7 g/dL (33.0-37.0); Mean Corpuscular Hgb 29.9 pg (27.0-31.0); Mean Corpuscular Volume 91.5 fL (81.0-99.0); Mean Platelet Volume 11.2 fL (7.4-10.4); Platelet Count 174 10^3/uL (130-400); Red Blood Cell Count 4.11 10^6/uL (4.20-5.40); Red Cell Dist. Width 20.6 % (11.5-14.5); White Blood Cell Count 7.7 10^3/uL (4.8-10.8)
[2023-08-10 07:14] LABS: Vancomycin Random 12.1 ug/ml
[2023-08-10 07:19] VITALS: BP 141/76
[2023-08-10 07:33] LABS: Blood Urea Nitrogen 21 mg/dl (7-17); Carbon Dioxide 31 mmol/L (22-30); Chloride 104 mmol/L (98-107); Estimated Creatinine Clearance 33 ml/min; Glucose 86 mg/dl (70-99); Sodium 140 mmol/L (135-145); eGFR 49.24
--- NOTE | 2023-08-10 08:05 | PHA.VAN.FU ---
Vancomycin Assessment / Plan
- Assessment
Renal Function: SCR Increasing
WBC's are: WNL
In the past 24 hrs, patient has been: Afebrile
- Assessment - Therapeutic Drug Monitoring
Random Level: 12.1 - drawn ~19H after previous dose of 1000mg
- Dosing Plan
Dosing by Level: Re-dose today (Vanc 1000mg)
- Monitoring Plan
Random Level: 08/10 06
- Follow Up
Pharmacy will continue to follow.
Vancomycin Follow UP
- -
Patient Age: 87
Patient Sex: Female
Vancomycin Day #: 3
Indication: Bacteremia
Requesting Provider: Dr. Bell
Pertinent Antimicrobial Allergies:
penicillins - stomach distention; tolerated ampicillin
Height / Weight:
Height 5 ft
Actual Weight 70.261 kg
Pertinent Past Medical History: BMI ~32, Chronic prednisone
- Vital Signs / Lab Results
Temp Pulse Resp BP Pulse Ox
97.6 F 63 18 141/76 98
08/10/23 07:19 08/10/23 07:19 08/10/23 07:19 08/10/23 07:19 08/10/23 07:19
Lab Results - Hematology
08/07/23 08/08/23 08/10/23
11:45 05:21 06:07
WBC 10.1 9.1 7.7
Lab Results - Chemistry
08/07/23 08/08/23 08/09/23
11:45 05:21 06:16
BUN 17 16 17
Creatinine 1.0 1.2 H 0.9
Estimated Creat Clear 37 31 40
Albumin 4.5
08/10/23
06:07
BUN 21 H
Creatinine 1.1 H
Estimated Creat Clear 33
Albumin
08/07/23 08/07/23
13:53 17:45
Lactic Acid 1.6 Cancelled
Microbiology Results
08/09/23 06:16 Blood Culture - Preliminary
Blood/Venous No Growth in 24 hours- Final report to follow
08/07/23 13:53 Blood Culture - Preliminary
Blood/Venous Staph aureus MRSA
Gram Stain - Final
08/08/23 15:55 Blood Culture - Preliminary
Blood/Venous No Growth in 24 hours- Final report to follow
08/07/23 13:53 Blood Culture - Preliminary
Blood/Venous Staph aureus MRSA
Gram Stain - Preliminary
Therapeutic Drug Monitoring
Random Vancomycin 12.1 ug/ml 08/10/23 06:07
[2023-08-10] MEDS: FIBERCON 625 MG PO (08:32)
[2023-08-10] MEDS: DELTASONE 10 MG PO (08:32)
[2023-08-10] MEDS: DDAVP 0.0500000000000000028 MG PO (08:32)
[2023-08-10] MEDS: MIRALAX PO (08:32)
--- NOTE | 2023-08-10 08:32 | W.PN.HOSP.TC ---
Today's Communication/Plan
-
see bold
Assessment / Plan
Assessment / Plan
HPI: 87-year-old female with a past medical history of pituitary macroadenoma, adrenal insufficiency on chronic steroids, hypothyroidism, left lower extremity DVT in October 2021, hemorrhoids, and chronic urine incontinence presents with chronic
lower back pain and chronic lower extremity edema. Patient recently got an epidural spinal injection on 07/31/2023, but still reports severe back pain with movement. She also reports chronic bilateral lower extremity edema. She has new onset left
lower extremity erythema and warmth, for the past 4 days. She denies leg pain. She denies chest pain, shortness of breath, palpitations. No fever, no nausea, no vomiting.
She used to be on Eliquis for her history of DVT. This has been held for several weeks now, secondary to bleeding hemorrhoids. She has a colonoscopy scheduled with Dr. Efe DIAZ.
#Acute left lower extremity cellulitis
#MRSA bacteremia
Status post IV Ancef, continue vancomycin
Repeat blood cultures on 08/07 and 08/08 negative to date, IVETTE negative for vegetation
ID consulted. Blood cultures growing MRSA sensitive to vancomycin, Bactrim, tetracycline, clindamycin
Son requesting short-term rehab placement�case management on board
#Stage III CKD
Creatinine at baseline, continue to trend
#Hypokalemia
Repleted and resolved, Mg high
#Hypernatremia
Resolved
#Bilateral lower extremity edema
Lower extremity Dopplers negative for DVT
#Chronic lower back pain
S/p epidural spinal injection 07/31/2023 (it was her first one)
Continue tramadol 100 mg every 8 hours, added oxycodone 5 mg every 4 hours as needed pain
Recommend she follow-up with pain management in the office
#Recent bleeding hemorrhoids
She stopped Eliquis a few weeks ago for this
She has a colonoscopy scheduled with Dr. Efe DIAZ
#Pituitary macroadenoma
#Adrenal insufficiency
Continue prednisone 10 mg daily, desmopressin 0.05 mg every 48 hours
#Hypothyroidism
Continue Synthroid
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
DVT prophylaxis�subcu Lovenox
Full code
Updated son on phone 08/08
Total time spent to see the patient on the floor, examine the patient, review data and lab results, discuss treatment plan with patient, nursing staff around 35 minutes.
Physical Exam
General: No acute distress
HEENT: Normocephalic, Atraumatic, EOMI, MMM
Respiratory: Clear to Auscultation bilaterally
Cardiac: Normal S1/S2, Regular Rate and Rhythm
GI: Soft, Nontender, Nondistended, Normal Bowel Sounds
Extremities: No Clubbing, Cyanosis
Severe erythema and warmth of the left lower extremity from the ankle to the thigh
Bilateral lower extremity edema noted
Neuro: Nonfocal/Grossly Intact
Psych: Calm, Cooperative
Derm: No Visible lesions
Anticipated Discharge: 24 - 48 hours
Subjective/Interval History
-
Date of Service: August 09, 2023
Patient complains of her chronic lower back pain. No fever, no vomiting. Denies leg pain.
Objective Data
-
Labs:
Laboratory Results
08/09/23
06:16
Sodium 139
Potassium 4.2
Chloride 109 H
Carbon Dioxide 21 L
BUN 17
Creatinine 0.9
Glucose 86
Calcium 9.1
Vital Signs:
Vital Signs
Temp Pulse Resp BP Pulse Ox
97.8 F 64 18 142/63 97
08/09/23 15:17 08/09/23 15:17 08/09/23 15:17 08/09/23 15:17 08/09/23 15:17
I&O
08/08/23 08/09/23 08/10/23
06:59 06:59 06:59
Intake Total 780 / 780 440 / 440
Output Total 375 / 375
Balance 405 / 405 440 / 440
[2023-08-10] MEDS: HYDROPHOR 1 APPLIC TOPICAL (08:33)
[2023-08-10] MEDS: MIRALAX 17 GRAMS PO (08:40)
[2023-08-10] MEDS: DUPHALAC/CHRONULAC 20 GRAMS PO (10:48)
[2023-08-10] MEDS: VANCOCIN 200 IV (10:48)
[2023-08-10] MEDS: ROXICODONE 5 MG PO (14:06)
--- NOTE | 2023-08-10 14:09 | CON.ID ---
Consultation
-
Date/Time Consultation Requested: 08/09/2023 1547
Date/Time Consultation Performed: 08/10/2023 1410
Requesting Provider: Dr. Bell
Performing Provider: Dr. Rodrigues
Reason for Consultation: MRSA bacteremia
Chief Complaint / Past History
History of Present Illness
Mariana Keller is an 87-year-old female being evaluated the request of Dr. Bell regarding MRSA bacteremia. History is obtained from chart review, along with patient interview.
The patient reports a history of spinal stenosis in the L2-L3 area, and recently underwent epidural injection by Dr. Marcus. She reports she developed difficulty with walking thereafter. She reports that she had some improvement in back pain, but
on 08/06 she had increasing low back pain, and pulled the call licona at the facility where she resides. She additionally admits to left lower extremity warmth and redness over the 4 days prior to admission, but denied specific pain. She was brought
to the emergency room here [facility] for further workup. Blood cultures obtained in the emergency room were found to be positive yesterday, she was placed on empiric antibiotics, and Infectious Diseases has been asked to manage further
antimicrobial therapy.
The patient reports ongoing low back pain, but also reported that she had lower extremity edema prior to coming in which is now improved. She also admitted to erythema of the legs. She denies any headache. She denies any chest pain or shortness
of breath. She denies any abdominal discomfort.
Past History
Additional Past Medical History:
Hypothyroidism
Hx pituitary macroadenoma
Hx adrenal insufficiency (on chronic steroids)
Chronic urinary incontinence
Additional Past Surgical History:
Cholecystectomy
Allergy History:
garlic Allergy (Verified 08/07/23 08:53)
Unknown
Penicillins Allergy (Verified 08/08/23 10:07)
stomach distention; Tolerated ampicillin x 2weeks
Medications Reviewed: Yes
Current Antibiotics:
Vancomycin
Social History
Tobacco: Non-Smoker
Alcohol: None
Drug: None
Personal:
Living: Assisted Living
Employment: Retired
Family History
Family History: Not Pertinent
Review of Systems
Vital Signs
Temp Pulse Resp BP Pulse Ox
97.6 F 63 18 141/76 98
08/10/23 07:19 08/10/23 07:19 08/10/23 07:19 08/10/23 07:19 08/10/23 07:19
Physical Exam
Physical Exam
Constitutional: No Acute Distress, Comfortable, Chronically Ill and Non-toxic
Head: Normocephalic
Eyes: Pupils Equal, Pupils Round, No Conjunctival Hemorrhage and Sclera Anicteric
Oral: No Thrush and No Ulcers
Cardiovascular: S1/S2; Negative S3/S4
Pulmonary: Clear and Non Labored; Negative Wheezes, Rales or Rhonchi
Gastrointestinal: Soft, Non Tender, Non Distended, Normal Bowel Sounds, No Rebound and No Guarding
Genito-Urinary: Negative Abrams, Suprapubic Tenderness or CVA Tenderness
Extremities: Edema, Erythema (minimal), Pulses and Venous Insufficiency; Negative Splinter Hemorrhage or Janeway Lesions
Musculoskeletal: Negative Joint Swelling, Joint Effusion or Spinal Tenderness
Skin: Warm and Dry; Negative Rash or Jaundice
Neurological: Awake, Alert, Oriented and No Motor Deficits; Negative Meningeal Signs
Psychological: Calm
Lab / Diagnostic Study Results
08/10/23 06:07
08/10/23 06:07
Abs Immat Gran (auto) 0.1 10^3/uL (0-0.05) H 08/07/23 11:45
Absolute Neuts (auto) 6.0 10^3/uL (1.4-6.5) 08/07/23 11:45
Absolute Lymphs (auto) 2.7 10^3/uL (1.2-3.4) 08/07/23 11:45
Absolute Monos (auto) 1.1 10^3/uL (0.1-0.6) H 08/07/23 11:45
Absolute Basos (auto) 0.0 10^3/uL (0-0.2) 08/07/23 11:45
Immature Gran % 1.3 % (0-0.5) H 08/07/23 11:45
Neutrophils % 58.9 % (42.2-75.2) 08/07/23 11:45
Lymphocytes % 27.0 % (20.5-51.1) 08/07/23 11:45
Monocytes % 11.2 % (1.7-9.3) H 08/07/23 11:45
Eosinophils % 1.3 % (0-6) 08/07/23 11:45
Basophils % 0.3 % (0-2) 08/07/23 11:45
Lactic Acid Cancelled 08/07/23 17:45
Microbiology Results
Micro:
08/07/23 13:53 Blood Culture - Final
Blood/Venous Staph aureus MRSA
Gram Stain - Final
08/07/23 13:53 Blood Culture - Preliminary
Blood/Venous Enterococcus species
Staph aureus MRSA
Gram Stain - Preliminary
08/09/23 06:16 Blood Culture - Preliminary
Blood/Venous No Growth in 24 hours- Final report to follow
08/08/23 15:55 Blood Culture - Preliminary
Blood/Venous No Growth in 24 hours- Final report to follow
Imaging:
08/07/2023 Duplex ultrasound lower extremities bilaterally: No evidence of DVT
Assessment / Plan
MRSA bacteremia
Low back pain
- Reports chronic in nature, but increased recently after epidural injection
Transaminitis
Hypothyroidism
Hx pituitary macroadenoma
Hx adrenal insufficiency (on chronic steroids)
Chronic urinary incontinence
Recommendations:
Admission blood cultures reveal MRSA in 3 of 4 blood culture bottles and Enterococcus in 1 of 4 blood culture bottles.
Given recent epidural injection injection, this is of significant concern, especially in the context of worsening low back pain.
Would check MRI of the L-spine to assess for collection.
Repeat blood cultures are have been obtained and are in process. Will repeat blood cultures today, also.
Check ESR and CRP in AM.
Follow levels while remains on vancomycin.
Follow white count and temperature curve.
Care Review
Plan reviewed with: Physician (Hospitalist)
[2023-08-10 15:27] VITALS: BP 150/88
--- NOTE | 2023-08-10 15:49 | CM ---
Discharge Plan of Care: SNF vs Home PT. [facility] has accepted. Will follow ongoing therapy recommendations.
[2023-08-10] MEDS: LOVENOX 40 MG SC (17:12)
[2023-08-10 22:56] VITALS: BP 133/71
[2023-08-11] MEDS: SYNTHROID 50 MCG PO (05:09)
--- NOTE | 2023-08-11 05:26 | W.PN.HOSP.TC ---
Today's Communication/Plan
-
cont abx as per ID, planned for oil heaterman IV abx
PICC placement after neg blood cultures 72 hours
increased laxatives
pain control
PT/OT
anticipate DC to SNF Mon as per ID
Assessment / Plan
Assessment / Plan
HPI: 87-year-old female with a past medical history of pituitary macroadenoma, adrenal insufficiency on chronic steroids, hypothyroidism, left lower extremity DVT in October 2021, hemorrhoids, and chronic urine incontinence presents with chronic
lower back pain and chronic lower extremity edema. Patient recently got an epidural spinal injection on 07/31/2023, but still reports severe back pain with movement. She also reports chronic bilateral lower extremity edema. She has new onset left
lower extremity erythema and warmth, for the past 4 days. She denies leg pain. She denies chest pain, shortness of breath, palpitations. No fever, no nausea, no vomiting.
She used to be on Eliquis for her history of DVT. This has been held for several weeks now, secondary to bleeding hemorrhoids. She has a colonoscopy scheduled with GI, Dr. Wilks.
#Acute left lower extremity cellulitis
#MRSA bacteremia
Status post IV Ancef, continue vancomycin
Repeat blood cultures on 08/07 and 08/08 negative to date, IVETTE negative for vegetation
Blood cultures growing MRSA sensitive to vancomycin, Bactrim, tetracycline, clindamycin
ID consult appreciated 6 wks IV dapto recommended till 09/18/23, PICC to be placed after blood cx's neg for 72 hours
Son requesting short-term rehab placement�case management on board
Lumbar MRI appreciated
-bilateral sacral insufficiency fractures. The fracture on the left side is new.
-No evidence for discitis/osteomyelitis or abscess in lumbar spine
-Edema in the posterior paraspinal musculature extending from L4 to L5 bilaterally. This has progressed on the right, and is new on the left. Differential diagnosis includes contusions, partial tears, or myositis
-At L2/3, there is a right paracentral disc extrusion measuring 6 mm in diameter. This tracks slightly superiorly from the level of the space. It causes moderate flattening of thecal sac. It does not contact the right L2 nerve root. --Superimposed
annular bulge and facet osteoarthritis combine to cause moderate spinal canal stenosis as well as moderate right foraminal stenosis. These findings are similar to the previous MRI
-Degenerative findings result in moderate right foraminal stenosis at L1/2
-Degenerative findings at L3/4 result in moderate spinal canal stenosis as well as severe right and moderate left foraminal stenosis at L3/4
-Degenerative anterolisthesis of L4 on L5 contributes to moderate spinal canal stenosis and moderate bilateral foraminal stenosis at L4/5
-Redemonstration of severe left foraminal stenosis at L5/S1. This is secondary to degenerative findings
#Stage III CKD
Creatinine at baseline, continue to trend
#Hypokalemia
Repleted and resolved
#Mild Hypermagnesemia
#Hypernatremia
Resolved
#Bilateral lower extremity edema
Lower extremity Dopplers negative for DVT
#Chronic lower back pain
S/p epidural spinal injection 07/31/2023 (it was her first one)
Continue tramadol 100 mg every 8 hours, added oxycodone 5 mg every 4 hours as needed pain
Recommend she follow-up with pain management in the office
#constipation
cont mirlaxa, colace/senna added, prn bisacodyl suppository
#Recent bleeding hemorrhoids
She stopped Eliquis a few weeks ago for this
She has a colonoscopy scheduled with GI, Dr. Wilks
#Pituitary macroadenoma
#Adrenal insufficiency
Continue prednisone 10 mg daily, desmopressin 0.05 mg every 48 hours
#Hypothyroidism
Continue Synthroid
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
PT appreciated SNF vs Home PT (patient and son prefer SNF)
DVT prophylaxis�subcu Lovenox
Full code
Updated son Jose Elias on phone 08/10
Total time spent to see the patient on the floor, examine the patient, review data and lab results, discuss treatment plan with patient, nursing staff around 50 minutes.
Physical Exam
General: No acute distress
HEENT: Normocephalic, Atraumatic, EOMI, MMM
Respiratory: Clear to Auscultation bilaterally
Cardiac: Normal S1/S2, Regular Rate and Rhythm
GI: Soft, Nontender, Nondistended, Normal Bowel Sounds
Extremities: No Clubbing, Cyanosis, LOTTIE compressive bandaging in place b/l lower ext's clean dry intact
Bilateral lower extremity edema noted
Neuro: Nonfocal/Grossly Intact
Psych: Calm, Cooperative
Derm: No Visible lesions
Anticipated Discharge: > 48 hours
Subjective/Interval History
-
Date of Service: August 11, 2023
Seen and examined at bedside in no acute distress sitting up comfortably in bed. Continues to report lower back pain exacerbated with ambulation.
Objective Data
-
Labs:
Laboratory Results
08/11/23
06:00
WBC Pending
Hgb Pending
Hct Pending
Plt Count Pending
Sodium Pending
Potassium Pending
Chloride Pending
Carbon Dioxide Pending
BUN Pending
Creatinine Pending
Glucose Pending
Calcium Pending
Vital Signs:
Vital Signs
Temp Pulse Resp BP Pulse Ox
97.4 F 51 20 133/71 98
08/10/23 22:56 08/10/23 22:56 08/10/23 22:56 08/10/23 22:56 08/10/23 22:56
I&O
08/09/23 08/10/23 08/11/23
06:59 06:59 06:59
Intake Total 440 / 440 1150 / 1150 705 / 705
Output Total 200 / 200
Balance 440 / 440 1150 / 1150 505 / 505
[2023-08-11 07:15] VITALS: BP 148/79
[2023-08-11 07:20] LABS: Hematocrit 37.4 % (37.0-47.0); Hemoglobin 12.1 g/dL (12.0-16.0); Mean Corp Hgb Conc. 32.4 g/dL (33.0-37.0); Mean Corpuscular Hgb 29.8 pg (27.0-31.0); Mean Corpuscular Volume 92.1 fL (81.0-99.0); Mean Platelet Volume 10.9 fL (7.4-10.4); Platelet Count 156 10^3/uL (130-400); Red Blood Cell Count 4.06 10^6/uL (4.20-5.40); Red Cell Dist. Width 20.9 % (11.5-14.5); White Blood Cell Count 7.9 10^3/uL (4.8-10.8)
[2023-08-11 07:25] LABS: Erythrocyte Sed Rate 17 mm/hour (0-20)
[2023-08-11 07:38] LABS: Vancomycin Random 11.5 ug/ml
[2023-08-11 07:45] LABS: Blood Urea Nitrogen 21 mg/dl (7-17); Calcium 9.1 mg/dl (8.4-10.2); Carbon Dioxide 24 mmol/L (22-30); Chloride 109 mmol/L (98-107); Estimated Creatinine Clearance 40 ml/min; Glucose 78 mg/dl (70-99); Magnesium 2.6 mg/dl (1.6-2.3); Phosphorus 2.5 mg/dl (2.5-4.5); Potassium 4.1 mmol/L (3.5-5.1); Sodium 141 mmol/L (135-145); eGFR > 60.00
--- NOTE | 2023-08-11 08:15 | PHA.VAN.FU ---
Vancomycin Assessment / Plan
- Assessment
Renal Function: SCR Decreasing
WBC's are: WNL
In the past 24 hrs, patient has been: Afebrile
- Assessment - Therapeutic Drug Monitoring
Random Level: 11.5 - drawn ~19.5H after previous dose of 1000mg
- Dosing Plan
Dosing by Level: Re-dose today (Vanc 1250mg)
Dosing Comments: level with slight decreasing trend - trial higher dose today
- Monitoring Plan
Random Level: 08/11 599
- Follow Up
Pharmacy will continue to follow.
Vancomycin Follow UP
- -
Patient Age: 87
Patient Sex: Female
Vancomycin Day #: 4
Indication: Bacteremia
Requesting Provider: Dr. Bell / Dr. Rodrigues
Pertinent Antimicrobial Allergies:
penicillins - stomach distention; tolerated ampicillin
Height / Weight:
Height 5 ft
Actual Weight 70.261 kg
Pertinent Past Medical History: BMI ~32, Chronic prednisone
- Vital Signs / Lab Results
Temp Pulse Resp BP Pulse Ox
97.4 F 51 20 133/71 98
08/10/23 22:56 08/10/23 22:56 08/10/23 22:56 08/10/23 22:56 08/10/23 22:56
Lab Results - Hematology
08/10/23 08/11/23
06:07 06:18
WBC 7.7 7.9
Lab Results - Chemistry
08/09/23 08/10/23 08/11/23
06:16 06:07 06:18
BUN 17 21 H 21 H
Creatinine 0.9 1.1 H 0.9
Estimated Creat Clear 40 33 40
Microbiology Results
08/09/23 06:16 Blood Culture - Preliminary
Blood/Venous No Growth in 48 hours- Final report to follow
08/08/23 15:55 Blood Culture - Preliminary
Blood/Venous No Growth in 48 hours- Final report to follow
08/07/23 13:53 Blood Culture - Final
Blood/Venous Staph aureus MRSA
Gram Stain - Final
08/07/23 13:53 Blood Culture - Preliminary
Blood/Venous Enterococcus species
Staph aureus MRSA
Gram Stain - Preliminary
Therapeutic Drug Monitoring
Random Vancomycin 11.5 ug/ml 08/11/23 06:18
[2023-08-11] MEDS: ULTRAM 100 MG PO ×2 (09:01→16:51)
[2023-08-11] MEDS: DELTASONE 10 MG PO (09:01)
[2023-08-11] MEDS: FIBERCON 625 MG PO (09:01)
[2023-08-11] MEDS: MIRALAX 17 GRAMS PO (09:01)
[2023-08-11] MEDS: HYDROPHOR 1 APPLIC TOPICAL (09:04)
[2023-08-11] MEDS: VANCOCIN 275 MG IV (10:09)
--- NOTE | 2023-08-11 10:42 | W.PN.ID1 ---
Date of Service
Date of Service: August 11, 2023
Today's Communication
Recommend daptomycin 700mg IV q24 x 6 weeks till 09/18/2023.
See below.
Assessment / Plan
MRSA bacteremia
Acute on chronic low back pain after recent epidural injection
Transaminitis
Hypothyroidism
Hx pituitary macroadenoma
Hx adrenal insufficiency (on chronic steroids)
Chronic urinary incontinence
Recommendations:
Admission blood cultures reveal MRSA in 3 of 4 blood culture bottles and Enterococcus in 1 of 4 blood culture bottles.
Given recent epidural injection injection, this is of significant concern, especially in the context of worsening low back pain.
MRI of the L-spine no definitive discitis/osteo/abscess. Positive myositis.
TTE no gross vegetation.
Repeat blood cultures negative to date from 08/07.
CRP 23.4
Source of MRSA bacteremia not entirely clear.
To err on side of caution, treat with daptomycin 700mg IV q24 x 6 weeks till 09/18/2023.
Follow baseline and weekly ck, CBC, RENTAL COORDINATOR, CRP.
Place PICC when blood cx's neg x 72hr.
Anticipate dc to SNF Monday.
Infusion sheet submitted to case management.
Chief Complaint
-: Bacteremia
Subjective / Review of Systems
Back pain better with pain med. Back is stiff at night.
Vital Signs / Physical Exam
Vital Signs
Vital Signs
Temp Pulse Resp BP Pulse Ox
97.3 F 50 18 148/79 99
08/11/23 07:15 08/11/23 07:15 08/11/23 07:15 08/11/23 07:15 08/11/23 07:15
Physical Exam
Constitutional: No Acute Distress
Cardiovascular: Regular Rate and S1/S2
Pulmonary: Clear
Gastrointestinal: Soft, Non Tender and Non Distended
Extremities: Edema (BLE (wound photos reviewed0)
Neurological: AO x 3
Objective Data
Lab Data
Lab Results
08/11/23 06:18
08/11/23 06:18
ESR 17 mm/hour (0-20) 08/11/23 06:18
Estimated Creat Clear 40 ml/min 08/11/23 06:18
Lactic Acid Cancelled 08/07/23 17:45
Total Bilirubin 1.0 mg/dl (0.2-1.3) 08/07/23 11:45
AST 42 U/L (14-36) H 08/07/23 11:45
ALT 82 U/L (0-35) H 08/07/23 11:45
Alkaline Phosphatase 401 U/L (38-126) H 08/07/23 11:45
C-Reactive Protein 23.40 mg/L (0.0-10.00) H 08/11/23 06:18
Most recent labs reviewed.
Micro Results:
08/07/23 13:53 Blood Culture - Preliminary
Blood/Venous Enterococcus faecalis
Staph aureus MRSA
Gram Stain - Preliminary
08/09/23 06:16 Blood Culture - Preliminary
Blood/Venous No Growth in 48 hours- Final report to follow
08/10/23 18:51 Blood Culture - Pending
Blood/Venous
08/08/23 15:55 Blood Culture - Preliminary
Blood/Venous No Growth in 48 hours- Final report to follow
08/10/23 14:59 Blood Culture - Pending
Blood/Venous
08/07/23 13:53 Blood Culture - Final
Blood/Venous Staph aureus MRSA
Gram Stain - Final
Imaging:
08/07/2023 Duplex ultrasound lower extremities bilaterally: No evidence of DVT
08/10/2023 Lumbar MRI wo and with contrast: There are bilateral sacral insufficiency fractures. The fracture on the left side is new. No evidence for discitis/osteomyelitis or abscess in lumbar spine. Edema in the posterior paraspinal musculature
extending from L4 to L5 bilaterally. This has progressed on the right, and is new on the left. Differential diagnosis includes contusions, partial tears, or myositis. At L2/3, there is a right paracentral disc extrusion measuring 6 mm in diameter.
This tracks slightly superiorly from the level of the space. It causes moderate flattening of thecal sac. It does not contact the right L2 nerve root. Superimposed annular bulge and facet osteoarthritis combine to cause moderate spinal canal
stenosis as well as moderate right foraminal stenosis. These findings are similar to the previous MRI. Degenerative findings result in moderate right foraminal stenosis at L1/2. Degenerative findings at L3/4 result in moderate spinal canal stenosis
as well as severe right and moderate left foraminal stenosis at L3/4. Degenerative anterolisthesis of L4 on L5 contributes to moderate spinal canal stenosis and moderate bilateral foraminal stenosis at L4/5. Redemonstration of severe left foraminal
stenosis at L5/S1. This is secondary to degenerative findings
Care Review
Plan reviewed with: Physician (Dr. Manjarrez)
[2023-08-11] MEDS: SENOKOT-S 1 TABLET PO ×2 (12:02→20:49)
[2023-08-11 14:00] LABS: Creatine Phosphokinase 24 U/L (30-135)
--- NOTE | 2023-08-11 14:42 | CM ---
Patient has been accepted to [facility] for chcf and rehab services. Per ID, placed on Dapto, will place PICC when blood cx's neg x 72hr,
Anticipate discharge Monday08/14/23. Preliminary documentation along with infusion orders have been forwarded to [facility]. [facility] [employer] notified patient will be on Dapto. When PICC is placed, will need to send report and CXR
confirming placement to [facility].
[2023-08-11] MEDS: DULCOLAX 10 MG RECTAL (14:43)
[2023-08-11] MEDS: CUBICIN 14 MG IV (15:06)
--- NOTE | 2023-08-11 15:23 | CM ---
Patient has been accepted to [facility] for senior care and rehab services. Per ID, placed on Dapto, will place PICC when blood cx's neg x 72hr,
Anticipate discharge Monday08/14/23. [facility] [employer] notified patient will be on Dapto.
[2023-08-11 15:33] VITALS: BP 125/69
[2023-08-11] MEDS: LOVENOX 40 MG SC (17:29)
[2023-08-11 23:00] VITALS: BP 153/81
[2023-08-12] MEDS: ULTRAM 100 MG PO ×3 (00:21→17:00)
[2023-08-12] MEDS: SYNTHROID PO (06:10)
[2023-08-12 07:49] VITALS: BP 153/83
[2023-08-12] MEDS: DDAVP 0.0500000000000000028 MG PO (07:56)
[2023-08-12] MEDS: SENOKOT-S 1 TABLET PO (07:58)
[2023-08-12] MEDS: FIBERCON 625 MG PO (07:58)
[2023-08-12] MEDS: DELTASONE 10 MG PO (07:58)
[2023-08-12] MEDS: HYDROPHOR 1 APPLIC TOPICAL (07:59)
[2023-08-12] MEDS: MIRALAX 17 GRAMS PO (07:59)
--- NOTE | 2023-08-12 08:54 | W.PN.HOSP.TC ---
Today's Communication/Plan
-
see bold
Assessment / Plan
Assessment / Plan
HPI: 87-year-old female with a past medical history of pituitary macroadenoma, adrenal insufficiency on chronic steroids, hypothyroidism, left lower extremity DVT in October 2021, hemorrhoids, and chronic urine incontinence presents with chronic
lower back pain and chronic lower extremity edema. Patient recently got an epidural spinal injection on 07/31/2023, but still reports severe back pain with movement. She also reports chronic bilateral lower extremity edema. She has new onset left
lower extremity erythema and warmth, for the past 4 days. She denies leg pain. She denies chest pain, shortness of breath, palpitations. No fever, no nausea, no vomiting.
She used to be on Eliquis for her history of DVT. This has been held for several weeks now, secondary to bleeding hemorrhoids. She has a colonoscopy scheduled with GI, Dr. Wilks.
#Acute left lower extremity cellulitis
#MRSA bacteremia
Status post IV Ancef
Repeat blood cultures on 08/07 and 08/08 negative to date, IVETTE negative for vegetation, MRI of the L-spine no definitive discitis/osteo/abscess. Positive myositis.
MRSA in 3 of 4 blood culture bottles and Enterococcus in 1 of 4 blood culture bottles
ID consult appreciated, 6 wks IV dapto recommended till 09/18/23, PICC to be placed after blood cx's neg for 72 hours
Son requesting short-term rehab placement�case management on board
Plan for discharge to short-term rehab on Monday
Lumbar MRI appreciated
-bilateral sacral insufficiency fractures. The fracture on the left side is new.
-No evidence for discitis/osteomyelitis or abscess in lumbar spine
-Edema in the posterior paraspinal musculature extending from L4 to L5 bilaterally. This has progressed on the right, and is new on the left. Differential diagnosis includes contusions, partial tears, or myositis
-At L2/3, there is a right paracentral disc extrusion measuring 6 mm in diameter. This tracks slightly superiorly from the level of the space. It causes moderate flattening of thecal sac. It does not contact the right L2 nerve root. --Superimposed
annular bulge and facet osteoarthritis combine to cause moderate spinal canal stenosis as well as moderate right foraminal stenosis. These findings are similar to the previous MRI
-Degenerative findings result in moderate right foraminal stenosis at L1/2
-Degenerative findings at L3/4 result in moderate spinal canal stenosis as well as severe right and moderate left foraminal stenosis at L3/4
-Degenerative anterolisthesis of L4 on L5 contributes to moderate spinal canal stenosis and moderate bilateral foraminal stenosis at L4/5
-Redemonstration of severe left foraminal stenosis at L5/S1. This is secondary to degenerative findings
#Stage III CKD
Creatinine at baseline, continue to trend
#Hypokalemia
Repleted and resolved
#Mild Hypermagnesemia
#Hypernatremia
Na 149 today, start D5W for 1 L
#Bilateral lower extremity edema
Lower extremity Dopplers negative for DVT
#Chronic lower back pain
S/p epidural spinal injection 07/31/2023 (it was her first one)
Continue tramadol 100 mg every 8 hours, added oxycodone 5 mg every 4 hours as needed pain
Recommend she follow-up with pain management in the office
#constipation
cont mirlaxa, colace/senna added, prn bisacodyl suppository
#Recent bleeding hemorrhoids
She stopped Eliquis a few weeks ago for this
She has a colonoscopy scheduled with GI, Dr. Wilks
#Pituitary macroadenoma
#Adrenal insufficiency
Continue prednisone 10 mg daily, desmopressin 0.05 mg every 48 hours
#Hypothyroidism
Continue Synthroid
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
PT appreciated SNF vs Home PT (patient and son prefer SNF)
DVT prophylaxis�subcu Lovenox
Full code
Updated son Jose Elias on phone 08/10
Total time spent to see the patient on the floor, examine the patient, review data and lab results, discuss treatment plan with patient, nursing staff around 35 minutes.
Physical Exam
General: No acute distress
HEENT: Normocephalic, Atraumatic, EOMI, MMM
Respiratory: Clear to Auscultation bilaterally
Cardiac: Normal S1/S2, Regular Rate and Rhythm
GI: Soft, Nontender, Nondistended, Normal Bowel Sounds
Extremities: No Clubbing, Cyanosis, LOTTIE compressive bandaging in place b/l lower ext's clean dry intact
Bilateral lower extremity edema noted
Neuro: Nonfocal/Grossly Intact
Psych: Calm, Cooperative
Derm: No Visible lesions
Anticipated Discharge: 24 - 48 hours
Subjective/Interval History
-
Date of Service: August 12, 2023
Patient complains of back pain. No fever, no vomiting.
Objective Data
-
Labs:
Laboratory Results
08/12/23
06:00
WBC Pending
Hgb Pending
Hct Pending
Plt Count Pending
Sodium Pending
Potassium Pending
Chloride Pending
Carbon Dioxide Pending
BUN Pending
Creatinine Pending
Glucose Pending
Calcium Pending
Vital Signs:
Vital Signs
Temp Pulse Resp BP Pulse Ox
98.0 F 54 16 153/83 99
08/12/23 07:49 08/12/23 07:49 08/12/23 07:49 08/12/23 07:49 08/12/23 07:49
I&O
08/11/23 08/12/23 08/13/23
06:59 06:59 06:59
Intake Total 1185 / 1185 1620 / 1620
Output Total 200 / 200
Balance 985 / 985 1620 / 1620
[2023-08-12 09:25] LABS: Hematocrit 46.5 % (37.0-47.0); Hemoglobin 14.1 g/dL (12.0-16.0); Mean Corp Hgb Conc. 30.3 g/dL (33.0-37.0); Mean Corpuscular Hgb 29.4 pg (27.0-31.0); Mean Corpuscular Volume 97.1 fL (81.0-99.0); Mean Platelet Volume 10.6 fL (7.4-10.4); Platelet Count 191 10^3/uL (130-400); Red Blood Cell Count 4.79 10^6/uL (4.20-5.40); Red Cell Dist. Width 21.2 % (11.5-14.5); White Blood Cell Count 10.5 10^3/uL (4.8-10.8)
[2023-08-12 09:38] LABS: Blood Urea Nitrogen 20 mg/dl (7-17); Calcium 9.9 mg/dl (8.4-10.2); Carbon Dioxide 22 mmol/L (22-30); Chloride 113 mmol/L (98-107); Estimated Creatinine Clearance 36 ml/min; Glucose 106 mg/dl (70-99); Potassium 3.9 mmol/L (3.5-5.1); Sodium 149 mmol/L (135-145); eGFR 55.21
[2023-08-12] MEDS: CUBICIN 14 MG IV (13:57)
--- NOTE | 2023-08-12 15:07 | CHAP ---
Extended visit with Alex. She shared stories that reflect her bright and resilient spirit. Has been dealing with illness for some time, and is accepting of her situation, with good support from family and friends. We prayed together, and she was
assured of our on-going support.
[2023-08-12 15:20] VITALS: BP 118/69
[2023-08-12] MEDS: LOVENOX 40 MG SC (17:01)
[2023-08-12] MEDS: D5W 1000 IV (17:02)
[2023-08-12] MEDS: SENOKOT-S PO ×2 (22:09→22:21)
[2023-08-12 23:11] VITALS: BP 148/74
[2023-08-13] MEDS: ULTRAM 100 MG PO ×4 (00:19→23:51)
[2023-08-13] MEDS: SYNTHROID 50 MCG PO (05:57)
[2023-08-13 07:40] VITALS: BP 136/79
--- NOTE | 2023-08-13 08:54 | W.PN.HOSP.TC ---
Today's Communication/Plan
-
Discharge to short-term rehab tomorrow
Assessment / Plan
Assessment / Plan
HPI: 87-year-old female with a past medical history of pituitary macroadenoma, adrenal insufficiency on chronic steroids, hypothyroidism, left lower extremity DVT in October 2021, hemorrhoids, and chronic urine incontinence presents with chronic
lower back pain and chronic lower extremity edema. Patient recently got an epidural spinal injection on 07/31/2023, but still reports severe back pain with movement. She also reports chronic bilateral lower extremity edema. She has new onset left
lower extremity erythema and warmth, for the past 4 days. She denies leg pain. She denies chest pain, shortness of breath, palpitations. No fever, no nausea, no vomiting.
She used to be on Eliquis for her history of DVT. This has been held for several weeks now, secondary to bleeding hemorrhoids. She has a colonoscopy scheduled with GI, Dr. Wilks.
#Acute left lower extremity cellulitis
#MRSA bacteremia
Status post IV Ancef
Repeat blood cultures on 08/07 and 08/08 negative to date, IVETTE negative for vegetation, MRI of the L-spine no definitive discitis/osteo/abscess. Positive myositis.
MRSA in 3 of 4 blood culture bottles and Enterococcus in 1 of 4 blood culture bottles
ID consult appreciated, 6 wks IV dapto recommended till 09/18/23, PICC to be placed after blood cx's neg for 72 hours
Son requesting short-term rehab placement�case management on board
Plan for discharge to short-term rehab on Monday
Lumbar MRI appreciated
-bilateral sacral insufficiency fractures. The fracture on the left side is new.
-No evidence for discitis/osteomyelitis or abscess in lumbar spine
-Edema in the posterior paraspinal musculature extending from L4 to L5 bilaterally. This has progressed on the right, and is new on the left. Differential diagnosis includes contusions, partial tears, or myositis
-At L2/3, there is a right paracentral disc extrusion measuring 6 mm in diameter. This tracks slightly superiorly from the level of the space. It causes moderate flattening of thecal sac. It does not contact the right L2 nerve root. --Superimposed
annular bulge and facet osteoarthritis combine to cause moderate spinal canal stenosis as well as moderate right foraminal stenosis. These findings are similar to the previous MRI
-Degenerative findings result in moderate right foraminal stenosis at L1/2
-Degenerative findings at L3/4 result in moderate spinal canal stenosis as well as severe right and moderate left foraminal stenosis at L3/4
-Degenerative anterolisthesis of L4 on L5 contributes to moderate spinal canal stenosis and moderate bilateral foraminal stenosis at L4/5
-Redemonstration of severe left foraminal stenosis at L5/S1. This is secondary to degenerative findings
#Stage III CKD
Creatinine at baseline, continue to trend
#Hypokalemia
Repleted and resolved
#Mild Hypermagnesemia
#Hypernatremia
Sodium 143, improved from 149 status post D5W
Continue to trend
#Bilateral lower extremity edema
Lower extremity Dopplers negative for DVT
#Chronic lower back pain
S/p epidural spinal injection 07/31/2023 (it was her first one)
Continue tramadol 100 mg every 8 hours, added oxycodone 5 mg every 4 hours as needed pain
Recommend she follow-up with pain management in the office
#constipation
cont mirlaxa, colace/senna added, prn bisacodyl suppository
#Recent bleeding hemorrhoids
She stopped Eliquis a few weeks ago for this
She has a colonoscopy scheduled with GI, Dr. Wilks
#Pituitary macroadenoma
#Adrenal insufficiency
Continue prednisone 10 mg daily, desmopressin 0.05 mg every 48 hours
#Hypothyroidism
Continue Synthroid
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
PT appreciated SNF vs Home PT (patient and son prefer SNF)
DVT prophylaxis�subcu Lovenox
Full code
Updated son Jose Elias on phone 08/10
Total time spent to see the patient on the floor, examine the patient, review data and lab results, discuss treatment plan with patient, nursing staff around 35 minutes.
Physical Exam
General: No acute distress
HEENT: Normocephalic, Atraumatic, EOMI, MMM
Respiratory: Clear to Auscultation bilaterally
Cardiac: Normal S1/S2, Regular Rate and Rhythm
GI: Soft, Nontender, Nondistended, Normal Bowel Sounds
Extremities: No Clubbing, Cyanosis, LOTTIE compressive bandaging in place b/l lower ext's clean dry intact
Bilateral lower extremity edema noted
Neuro: Nonfocal/Grossly Intact
Psych: Calm, Cooperative
Derm: No Visible lesions
Anticipated Discharge: Within 24 hours
Subjective/Interval History
-
Date of Service: August 13, 2023
Patient's lower back pain is improved. No fever, no vomiting.
Objective Data
-
Labs:
Laboratory Results
08/13/23
06:00
WBC Pending
Hgb Pending
Hct Pending
Plt Count Pending
Sodium Pending
Potassium Pending
Chloride Pending
Carbon Dioxide Pending
BUN Pending
Creatinine Pending
Glucose Pending
Calcium Pending
Vital Signs:
Vital Signs
Temp Pulse Resp BP Pulse Ox
98.3 F 62 18 148/74 98
08/12/23 23:11 08/12/23 23:11 08/12/23 23:11 08/12/23 23:11 08/12/23 23:11
I&O
08/12/23 08/13/23 08/14/23
06:59 06:59 06:59
Intake Total 1620 / 1620 1660 / 1660
Balance 1620 / 1620 1660 / 1660
[2023-08-13] MEDS: DELTASONE 10 MG PO (09:02)
[2023-08-13] MEDS: FIBERCON 625 MG PO (09:02)
[2023-08-13] MEDS: HYDROPHOR 1 APPLIC TOPICAL (09:04)
[2023-08-13] MEDS: SENOKOT-S PO (09:05)
[2023-08-13] MEDS: MIRALAX PO (09:05)
[2023-08-13 10:38] LABS: Hematocrit 42.4 % (37.0-47.0); Hemoglobin 13.2 g/dL (12.0-16.0); Mean Corp Hgb Conc. 31.1 g/dL (33.0-37.0); Mean Corpuscular Hgb 29.6 pg (27.0-31.0); Mean Corpuscular Volume 95.1 fL (81.0-99.0); Mean Platelet Volume 10.3 fL (7.4-10.4); Platelet Count 173 10^3/uL (130-400); Red Blood Cell Count 4.46 10^6/uL (4.20-5.40); Red Cell Dist. Width 21.1 % (11.5-14.5); White Blood Cell Count 10.9 10^3/uL (4.8-10.8)
[2023-08-13 12:07] LABS: Blood Urea Nitrogen 21 mg/dl (7-17); Calcium 9.5 mg/dl (8.4-10.2); Carbon Dioxide 29 mmol/L (22-30); Chloride 106 mmol/L (98-107); Estimated Creatinine Clearance 33 ml/min; Glucose 84 mg/dl (70-99); Potassium 3.9 mmol/L (3.5-5.1); Sodium 143 mmol/L (135-145); eGFR 49.24
[2023-08-13] MEDS: CUBICIN 14 MG IV (13:29)
[2023-08-13 15:20] VITALS: BP 143/83
[2023-08-13] MEDS: LOVENOX 40 MG SC (17:09)
[2023-08-13] MEDS: SENOKOT-S 1 TABLET PO (22:02)
[2023-08-13 23:13] VITALS: BP 132/77
[2023-08-14] MEDS: ANUSOL HC 25 MG RECTAL ×2 (02:28→21:40)
[2023-08-14 04:47] LABS: Hematocrit 38.6 % (37.0-47.0); Hemoglobin 12.2 g/dL (12.0-16.0); Mean Corp Hgb Conc. 31.6 g/dL (33.0-37.0); Mean Corpuscular Hgb 29.6 pg (27.0-31.0); Mean Corpuscular Volume 93.7 fL (81.0-99.0); Mean Platelet Volume 10.7 fL (7.4-10.4); Platelet Count 173 10^3/uL (130-400); Red Blood Cell Count 4.12 10^6/uL (4.20-5.40); Red Cell Dist. Width 21.1 % (11.5-14.5)
[2023-08-14 04:59] LABS: Blood Urea Nitrogen 21 mg/dl (7-17); Calcium 9.9 mg/dl (8.4-10.2); Carbon Dioxide 29 mmol/L (22-30); Chloride 115 mmol/L (98-107); Estimated Creatinine Clearance 36 ml/min; Glucose 89 mg/dl (70-99); Potassium 4.1 mmol/L (3.5-5.1); Sodium 150 mmol/L (135-145); eGFR 55.21
[2023-08-14] MEDS: SYNTHROID 50 MCG PO (05:39)
[2023-08-14 07:20] VITALS: BP 177/74
--- NOTE | 2023-08-14 07:33 | W.PN.HOSP.TC ---
Today's Communication/Plan
-
Possible discharge tomorrow if sodium normalizes
Assessment / Plan
Assessment / Plan
HPI: 87-year-old female with a past medical history of pituitary macroadenoma, adrenal insufficiency on chronic steroids, hypothyroidism, left lower extremity DVT in October 2021, hemorrhoids, and chronic urine incontinence presents with chronic
lower back pain and chronic lower extremity edema. Patient recently got an epidural spinal injection on 07/31/2023, but still reports severe back pain with movement. She also reports chronic bilateral lower extremity edema. She has new onset left
lower extremity erythema and warmth, for the past 4 days. She denies leg pain. She denies chest pain, shortness of breath, palpitations. No fever, no nausea, no vomiting.
She used to be on Eliquis for her history of DVT. This has been held for several weeks now, secondary to bleeding hemorrhoids. She has a colonoscopy scheduled with GI, Dr. Wilks.
#Acute left lower extremity cellulitis
#MRSA bacteremia
Status post IV Ancef
Repeat blood cultures on 08/07 and 08/08 negative to date, IVETTE negative for vegetation, MRI of the L-spine no definitive discitis/osteo/abscess. Positive myositis.
MRSA in 3 of 4 blood culture bottles and Enterococcus in 1 of 4 blood culture bottles
ID consult appreciated, 6 wks IV dapto recommended till 09/18/23, PICC placed 08/13/23
Son requesting short-term rehab placement�case management on board
Plan for discharge to short-term rehab on once Na normalizes
Lumbar MRI appreciated
-bilateral sacral insufficiency fractures. The fracture on the left side is new.
-No evidence for discitis/osteomyelitis or abscess in lumbar spine
-Edema in the posterior paraspinal musculature extending from L4 to L5 bilaterally. This has progressed on the right, and is new on the left. Differential diagnosis includes contusions, partial tears, or myositis
-At L2/3, there is a right paracentral disc extrusion measuring 6 mm in diameter. This tracks slightly superiorly from the level of the space. It causes moderate flattening of thecal sac. It does not contact the right L2 nerve root. --Superimposed
annular bulge and facet osteoarthritis combine to cause moderate spinal canal stenosis as well as moderate right foraminal stenosis. These findings are similar to the previous MRI
-Degenerative findings result in moderate right foraminal stenosis at L1/2
-Degenerative findings at L3/4 result in moderate spinal canal stenosis as well as severe right and moderate left foraminal stenosis at L3/4
-Degenerative anterolisthesis of L4 on L5 contributes to moderate spinal canal stenosis and moderate bilateral foraminal stenosis at L4/5
-Redemonstration of severe left foraminal stenosis at L5/S1. This is secondary to degenerative findings
#Hypernatremia
Sodium 150, start D5W
Discussed w/ Dr. Marlin Torres, rec increasing desmopressin to 0.05 daily for 2 days, then skip 3rd day
Continue to trend
#Chronic lower back pain
S/p epidural spinal injection 07/31/2023 (it was her first one)
Continue tramadol 100 mg every 8 hours, added oxycodone 5 mg every 4 hours as needed pain
Recommend she follow-up with pain management in the office
#Constipation
Increase bowel regimen
#Recent bleeding hemorrhoids
She stopped Eliquis a few weeks ago for this
She has a colonoscopy scheduled with [facility], Dr. Wilks
Continue Anusol suppository for 7 days
#Stage III CKD
Creatinine at baseline, continue to trend
#Hypokalemia
Repleted and resolved
#Mild Hypermagnesemia
#Bilateral lower extremity edema
Lower extremity Dopplers negative for DVT
#Pituitary macroadenoma
#Adrenal insufficiency
Continue prednisone 10 mg daily, desmopressin increased as above
#Hypothyroidism
Continue Synthroid
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
PT appreciated SNF vs Home PT (patient and son prefer SNF)
DVT prophylaxis�subcu Lovenox
Full code
Updated son Jose Elias on phone 08/13 twice
Total time spent to see the patient on the floor, examine the patient, review data and lab results, discuss treatment plan with patient, nursing staff around 55 minutes.
Physical Exam
General: No acute distress
HEENT: Normocephalic, Atraumatic, EOMI, MMM
Respiratory: Clear to Auscultation bilaterally
Cardiac: Normal S1/S2, Regular Rate and Rhythm
GI: Soft, Nontender, Nondistended, Normal Bowel Sounds
Extremities: No Clubbing, Cyanosis, LOTTIE compressive bandaging in place b/l lower ext's clean dry intact
Bilateral lower extremity edema noted
Neuro: Nonfocal/Grossly Intact
Psych: Calm, Cooperative
Derm: No Visible lesions
Anticipated Discharge: Within 24 hours
Subjective/Interval History
-
Date of Service: August 14, 2023
Patient had some hemorrhoidal bleeding overnight. She complains of constipation. No chest pain, no shortness of breath. No fever, no vomiting.
Objective Data
-
Labs:
Laboratory Results
08/14/23
04:22
WBC 10.0
Hgb 12.2
Hct 38.6
Plt Count 173
Sodium 150 H
Potassium 4.1
Chloride 115 H
Carbon Dioxide 29
BUN 21 H
Creatinine 1.0
Glucose 89
Calcium 9.9
Vital Signs:
Vital Signs
Temp Pulse Resp BP Pulse Ox
97.9 F 50 19 132/77 98
08/13/23 23:13 08/13/23 23:13 08/13/23 23:13 08/13/23 23:13 08/13/23 23:13
I&O
08/13/23 08/14/23 08/15/23
06:59 06:59 06:59
Intake Total 1660 / 1660 1140 / 1140
Balance 1660 / 1660 1140 / 1140
[2023-08-14] MEDS: ULTRAM 100 MG PO ×2 (09:28→16:09)
[2023-08-14] MEDS: FIBERCON 625 MG PO (09:28)
[2023-08-14] MEDS: SENOKOT-S 1 TABLET PO (09:28)
[2023-08-14] MEDS: DELTASONE 10 MG PO (09:28)
[2023-08-14] MEDS: DDAVP 0.0500000000000000028 MG PO (09:28)
[2023-08-14] MEDS: MIRALAX 17 GRAMS PO ×2 (09:29→21:39)
[2023-08-14] MEDS: D5W 1000 IV (09:30)
[2023-08-14] MEDS: HYDROPHOR 1 APPLIC TOPICAL (09:34)
[2023-08-14 10:13] VITALS: BP 156/71
--- NOTE | 2023-08-14 10:20 | W.PN.ID1 ---
Date of Service
Date of Service: August 14, 2023
Today's Communication
Continue daptomycin 700mg IV q24 x 6 weeks till 09/18/2023.
Assessment / Plan
MRSA bacteremia
Acute on chronic low back pain after recent epidural injection
Transaminitis
Hypothyroidism
Hx pituitary macroadenoma
Hx adrenal insufficiency (on chronic steroids)
Chronic urinary incontinence
Recommendations:
Admission blood cultures reveal MRSA in 3 of 4 blood culture bottles and Enterococcus in 1 of 4 blood culture bottles.
Given recent epidural injection injection, this is of significant concern, especially in the context of worsening low back pain.
MRI of the L-spine no definitive discitis/osteo/abscess. Positive myositis.
TTE no gross vegetation.
Repeat blood cultures negative to date from 08/07.
CRP 23.4
Source of MRSA bacteremia not entirely clear.
To err on side of caution, treat with daptomycin 700mg IV q24 x 6 weeks till 09/18/2023.
Follow weekly ck, CBC, CMP, CRP.
Infusion sheet submitted to case management.
To SNF when ready.
Chief Complaint
-: Bacteremia
Subjective / Review of Systems
No diarrhea.
Back is stiff when she first gets up.
Vital Signs / Physical Exam
Vital Signs
Vital Signs
Temp Pulse Resp BP Pulse Ox
97.5 F 60 18 156/71 96
08/14/23 07:20 08/14/23 07:20 08/14/23 07:20 08/14/23 10:13 08/14/23 07:20
Physical Exam
Constitutional: No Acute Distress and Comfortable
Pulmonary: Clear
Gastrointestinal: Soft, Non Tender and Non Distended
Extremities: Edema (decreased bilateral); Negative Erythema
Neurological: AO x 3
Lines: PICC (RUE no erythema)
Objective Data
Lab Data
Lab Results
08/14/23 04:22
08/14/23 04:22
ESR 17 mm/hour (0-20) 08/11/23 06:18
Estimated Creat Clear 36 ml/min 08/14/23 04:22
Lactic Acid Cancelled 08/07/23 17:45
Total Bilirubin 1.0 mg/dl (0.2-1.3) 08/07/23 11:45
AST 42 U/L (14-36) H 08/07/23 11:45
ALT 82 U/L (0-35) H 08/07/23 11:45
Alkaline Phosphatase 401 U/L (38-126) H 08/07/23 11:45
C-Reactive Protein 23.40 mg/L (0.0-10.00) H 08/11/23 06:18
Most recent labs reviewed.
Micro Results:
08/07/23 13:53 Blood Culture - Final
Blood/Venous Enterococcus faecalis
Staph aureus MRSA
Gram Stain - Final
08/09/23 06:16 Blood Culture - Final
Blood/Venous No Growth - Final Report
08/10/23 18:51 Blood Culture - Preliminary
Blood/Venous No Growth in 72 hours- Final report to follow
08/08/23 15:55 Blood Culture - Final
Blood/Venous No Growth - Final Report
08/10/23 14:59 Blood Culture - Preliminary
Blood/Venous No Growth in 72 hours- Final report to follow
08/07/23 13:53 Blood Culture - Final
Blood/Venous Staph aureus MRSA
Gram Stain - Final
Imaging:
08/07/2023 Duplex ultrasound lower extremities bilaterally: No evidence of DVT
08/10/2023 Lumbar MRI wo and with contrast: There are bilateral sacral insufficiency fractures. The fracture on the left side is new. No evidence for discitis/osteomyelitis or abscess in lumbar spine. Edema in the posterior paraspinal musculature
extending from L4 to L5 bilaterally. This has progressed on the right, and is new on the left. Differential diagnosis includes contusions, partial tears, or myositis. At L2/3, there is a right paracentral disc extrusion measuring 6 mm in diameter.
This tracks slightly superiorly from the level of the space. It causes moderate flattening of thecal sac. It does not contact the right L2 nerve root. Superimposed annular bulge and facet osteoarthritis combine to cause moderate spinal canal
stenosis as well as moderate right foraminal stenosis. These findings are similar to the previous MRI. Degenerative findings result in moderate right foraminal stenosis at L1/2. Degenerative findings at L3/4 result in moderate spinal canal stenosis
as well as severe right and moderate left foraminal stenosis at L3/4. Degenerative anterolisthesis of L4 on L5 contributes to moderate spinal canal stenosis and moderate bilateral foraminal stenosis at L4/5. Redemonstration of severe left foraminal
stenosis at L5/S1. This is secondary to degenerative findings
--- NOTE | 2023-08-14 12:19 | CM ---
Addendum entered by Maninder Walker 08/14/23 13:59:
IMM signed.
Original Note:
Discharge Plan of Care: [facility]. Does not need insurance auth. Today NA was 150 and patient c/o constipation. Anticipate discharge on 08/15/23. [facility] has bed for 08/15/23.
[2023-08-14 13:10] VITALS: BP 147/77; PULSE 57; O2SAT 98
[2023-08-14] MEDS: CUBICIN 14 MG IV (13:29)
[2023-08-14 15:03] LABS: TSH Reflex To Free T4 < 0.02 uIU/ml (0.47-4.68)
[2023-08-14 15:20] VITALS: BP 115/68
[2023-08-14 15:32] LABS: Free T4 0.92 ng/dl (0.78-2.19)
[2023-08-14] MEDS: DUPHALAC/CHRONULAC 20 GRAMS PO ×2 (16:09→21:40)
[2023-08-14] MEDS: LOVENOX 40 MG SC (17:01)
[2023-08-14] MEDS: SENOKOT-S 2 TABLET PO (21:40)
[2023-08-14 23:20] VITALS: BP 130/69
[2023-08-15] MEDS: ULTRAM 100 MG PO ×4 (00:01→23:34)
[2023-08-15 04:45] LABS: Hematocrit 34.4 % (37.0-47.0); Hemoglobin 11.1 g/dL (12.0-16.0); Mean Corp Hgb Conc. 32.3 g/dL (33.0-37.0); Mean Corpuscular Hgb 30.2 pg (27.0-31.0); Mean Corpuscular Volume 93.5 fL (81.0-99.0); Mean Platelet Volume 10.3 fL (7.4-10.4); Platelet Count 157 10^3/uL (130-400); Red Blood Cell Count 3.68 10^6/uL (4.20-5.40); Red Cell Dist. Width 20.5 % (11.5-14.5); White Blood Cell Count 9.8 10^3/uL (4.8-10.8)
[2023-08-15 05:30] LABS: ALT (SGPT) 100 U/L (0-35); AST (SGOT) 56 U/L (14-36); Albumin 3.7 g/dl (3.5-5.0); Alkaline Phosphatase 361 U/L (38-126); Blood Urea Nitrogen 21 mg/dl (7-17); Calcium 9.2 mg/dl (8.4-10.2); Carbon Dioxide 27 mmol/L (22-30); Chloride 105 mmol/L (98-107); Direct Bilirubin 0.2 mg/dl (0.0-0.4); Estimated Creatinine Clearance 45 ml/min; Glucose 105 mg/dl (70-99); Magnesium 2.5 mg/dl (1.6-2.3); Phosphorus 3.5 mg/dl (2.5-4.5); Potassium 3.9 mmol/L (3.5-5.1); Sodium 138 mmol/L (135-145); Total Bilirubin 0.5 mg/dl (0.2-1.3); Total Protein 5.7 g/dl (6.3-8.2); eGFR > 60.00
[2023-08-15] MEDS: D5W 1000 IV (06:09)
[2023-08-15] MEDS: SYNTHROID 50 MCG PO (06:12)
--- NOTE | 2023-08-15 06:13 | W.PN.HOSP.TC ---
Today's Communication/Plan
-
Observe
Likely discharge SNF rehab tomorrow if Na remains stable
cont pain control
PT/OT
Bowel regimen
Assessment / Plan
Assessment / Plan
HPI: 87-year-old female with a past medical history of pituitary macroadenoma, adrenal insufficiency on chronic steroids, hypothyroidism, left lower extremity DVT in October 2021, hemorrhoids, and chronic urine incontinence presents with chronic
lower back pain and chronic lower extremity edema. Patient recently got an epidural spinal injection on 07/31/2023, but still reports severe back pain with movement. She also reports chronic bilateral lower extremity edema. She has new onset left
lower extremity erythema and warmth, for the past 4 days. She denies leg pain. She denies chest pain, shortness of breath, palpitations. No fever, no nausea, no vomiting.
She used to be on Eliquis for her history of DVT. This has been held for several weeks now, secondary to bleeding hemorrhoids. She has a colonoscopy scheduled with GI, Dr. Wilks.
#Acute left lower extremity cellulitis
#MRSA bacteremia
Status post IV Ancef
Repeat blood cultures on 08/07 and 08/08 negative to date, IVETTE negative for vegetation, MRI of the L-spine no definitive discitis/osteo/abscess. Positive myositis.
MRSA in 3 of 4 blood culture bottles and Enterococcus in 1 of 4 blood culture bottles
ID consult appreciated, 6 wks IV dapto recommended till 09/18/23, PICC placed 08/13/23
Son requesting short-term rehab placement�case management on board
Plan for discharge to short-term rehab on once Na normalizes
Lumbar MRI appreciated
-bilateral sacral insufficiency fractures. The fracture on the left side is new.
-No evidence for discitis/osteomyelitis or abscess in lumbar spine
-Edema in the posterior paraspinal musculature extending from L4 to L5 bilaterally. This has progressed on the right, and is new on the left. Differential diagnosis includes contusions, partial tears, or myositis
-At L2/3, there is a right paracentral disc extrusion measuring 6 mm in diameter. This tracks slightly superiorly from the level of the space. It causes moderate flattening of thecal sac. It does not contact the right L2 nerve root. --Superimposed
annular bulge and facet osteoarthritis combine to cause moderate spinal canal stenosis as well as moderate right foraminal stenosis. These findings are similar to the previous MRI
-Degenerative findings result in moderate right foraminal stenosis at L1/2
-Degenerative findings at L3/4 result in moderate spinal canal stenosis as well as severe right and moderate left foraminal stenosis at L3/4
-Degenerative anterolisthesis of L4 on L5 contributes to moderate spinal canal stenosis and moderate bilateral foraminal stenosis at L4/5
-Redemonstration of severe left foraminal stenosis at L5/S1. This is secondary to degenerative findings
#Hypernatremia
#Diabetes Insipidus
Hypernatremia resolved D5W since discontinued
Per Discussion w/ Dr. Marlin Torres, home desmopressin increased to 0.05 daily with dose skip every 3rd day
#Chronic lower back pain
S/p epidural spinal injection 07/31/2023 (it was her first one)
Continue tramadol 100 mg every 8 hours, added oxycodone 5 mg every 4 hours as needed pain
Recommend she follow-up with pain management in the office
#Constipation
cont bowel regimen
#Recent bleeding hemorrhoids
She stopped Eliquis a few weeks ago for this
She has a colonoscopy scheduled with GI, Dr. Wilks
Continue Anusol suppository for 7 days
#Stage III CKD
Creatinine at baseline, continue to trend
#Hypokalemia
Repleted and resolved
#Mild Hypermagnesemia
#Bilateral lower extremity edema
Lower extremity Dopplers negative for DVT
cont compressive LOTTIE bandaging
#Pituitary macroadenoma
#Adrenal insufficiency
Continue prednisone 10 mg daily, desmopressin increased as above
#Hypothyroidism
Continue Synthroid
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
PT appreciated SNF vs Home PT (patient and son prefer SNF)
DVT prophylaxis�subcu Lovenox
Full code
discussed with patient at bedside and patient's son Jose Elias over phone
Total time spent to see the patient on the floor, examine the patient, review data and lab results, discuss treatment plan with patient, nursing staff around 55 minutes.
Physical Exam
General: No acute distress
HEENT: Normocephalic, Atraumatic, EOMI, MMM
Respiratory: Clear to Auscultation bilaterally
Cardiac: Normal S1/S2, Regular Rate and Rhythm
GI: Soft, Nontender, Nondistended, Normal Bowel Sounds
Extremities: No Clubbing, Cyanosis, LOTTIE compressive bandaging in place b/l lower ext's clean dry intact
Bilateral lower extremity edema noted
Neuro: Nonfocal/Grossly Intact
Psych: Calm, Cooperative
Derm: No Visible lesions
Anticipated Discharge: Within 24 hours
Subjective/Interval History
-
Date of Service: August 15, 2023
Seen and examined at bedside in no acute distress sitting up comfortably in chair. Reports improvement in lower back pain though remains present intermittently. Reports overall feeling well.
Objective Data
-
Labs:
Laboratory Results
08/15/23
04:24
WBC 9.8
Hgb 11.1 L
Hct 34.4 L
Plt Count 157
Sodium 138 D
Potassium 3.9
Chloride 105
Carbon Dioxide 27
BUN 21 H
Creatinine 0.8
Glucose 105 H
Calcium 9.2
Total Bilirubin 0.5
AST 56 H
ALT 100 H
Alkaline Phosphatase 361 H
Vital Signs:
Vital Signs
Temp Pulse Resp BP Pulse Ox
98.0 F 48 18 130/69 98
08/14/23 23:20 08/14/23 23:20 08/14/23 23:20 08/14/23 23:20 08/14/23 23:20
I&O
08/13/23 08/14/23 08/15/23
06:59 06:59 06:59
Intake Total 1660 / 1660 1140 / 1140 1620 / 1620
Balance 1660 / 1660 1140 / 1140 1620 / 1620
[2023-08-15 07:20] VITALS: BP 149/74
[2023-08-15] MEDS: FIBERCON 625 MG PO (08:53)
[2023-08-15] MEDS: DDAVP 0.0500000000000000028 MG PO (08:53)
[2023-08-15] MEDS: SENOKOT-S 2 TABLET PO ×2 (08:53→20:12)
[2023-08-15] MEDS: DELTASONE 10 MG PO (08:54)
[2023-08-15] MEDS: DUPHALAC/CHRONULAC 20 GRAMS PO (08:54)
[2023-08-15] MEDS: MIRALAX 17 GRAMS PO ×2 (08:54→20:11)
[2023-08-15] MEDS: HYDROPHOR 1 APPLIC TOPICAL (08:55)
[2023-08-15 09:48] VITALS: PULSE 71; O2SAT 96
--- NOTE | 2023-08-15 10:47 | W.PN.ID1 ---
Date of Service
Date of Service: August 15, 2023
Today's Communication
Continue Daptomycin as below.
Assessment / Plan
MRSA bacteremia
Acute on chronic low back pain after recent epidural injection
Transaminitis- present on admission
Hypothyroidism
Hx pituitary macroadenoma
Hx adrenal insufficiency (on chronic steroids)
Chronic urinary incontinence
Recommendations:
Admission blood cultures reveal MRSA in 3 of 4 blood culture bottles and Enterococcus in 1 of 4 blood culture bottles.
Given recent epidural injection injection, this is of significant concern, especially in the context of worsening low back pain.
MRI of the L-spine no definitive discitis/osteo/abscess. Positive myositis.
TTE no gross vegetation.
Repeat blood cultures negative to date from 08/07.
CRP 23.4
Source of MRSA bacteremia not entirely clear.
To err on side of caution, treat with daptomycin 700mg IV q24 x 6 weeks till 09/18/2023.
Follow weekly CK, CBC, CMP, CRP.
To SNF when ready.
Chief Complaint
-: Bacteremia
Subjective / Review of Systems
No new complaints.
Vital Signs / Physical Exam
Vital Signs
Vital Signs
Temp Pulse Resp BP Pulse Ox
97.7 F 51 16 149/74 95
08/15/23 07:20 08/15/23 07:20 08/15/23 07:20 08/15/23 07:20 08/15/23 07:20
Physical Exam
Constitutional: No Acute Distress and Comfortable
Gastrointestinal: Soft, Non Tender and Non Distended
Musculoskeletal: Negative Spinal Tenderness
Neurological: AO x 3
Objective Data
Lab Data
Lab Results
08/15/23 04:24
08/15/23 04:24
ESR 17 mm/hour (0-20) 08/11/23 06:18
Estimated Creat Clear 45 ml/min 08/15/23 04:24
Lactic Acid Cancelled 08/07/23 17:45
Total Bilirubin 0.5 mg/dl (0.2-1.3) 08/15/23 04:24
AST 56 U/L (14-36) H 08/15/23 04:24
ALT 100 U/L (0-35) H 08/15/23 04:24
Alkaline Phosphatase 361 U/L (38-126) H 08/15/23 04:24
C-Reactive Protein 23.40 mg/L (0.0-10.00) H 08/11/23 06:18
Most recent labs reviewed.
Micro Results:
08/10/23 18:51 Blood Culture - Preliminary
Blood/Venous No Growth in 4 days- Final report to follow
08/10/23 14:59 Blood Culture - Preliminary
Blood/Venous No Growth in 4 days- Final report to follow
08/07/23 13:53 Blood Culture - Final
Blood/Venous Enterococcus faecalis
Staph aureus MRSA
Gram Stain - Final
08/09/23 06:16 Blood Culture - Final
Blood/Venous No Growth - Final Report
08/08/23 15:55 Blood Culture - Final
Blood/Venous No Growth - Final Report
08/07/23 13:53 Blood Culture - Final
Blood/Venous Staph aureus MRSA
Gram Stain - Final
Imaging:
08/07/2023 Duplex ultrasound lower extremities bilaterally: No evidence of DVT
08/10/2023 Lumbar MRI wo and with contrast: There are bilateral sacral insufficiency fractures. The fracture on the left side is new. No evidence for discitis/osteomyelitis or abscess in lumbar spine. Edema in the posterior paraspinal musculature
extending from L4 to L5 bilaterally. This has progressed on the right, and is new on the left. Differential diagnosis includes contusions, partial tears, or myositis. At L2/3, there is a right paracentral disc extrusion measuring 6 mm in diameter.
This tracks slightly superiorly from the level of the space. It causes moderate flattening of thecal sac. It does not contact the right L2 nerve root. Superimposed annular bulge and facet osteoarthritis combine to cause moderate spinal canal
stenosis as well as moderate right foraminal stenosis. These findings are similar to the previous MRI. Degenerative findings result in moderate right foraminal stenosis at L1/2. Degenerative findings at L3/4 result in moderate spinal canal stenosis
as well as severe right and moderate left foraminal stenosis at L3/4. Degenerative anterolisthesis of L4 on L5 contributes to moderate spinal canal stenosis and moderate bilateral foraminal stenosis at L4/5. Redemonstration of severe left foraminal
stenosis at L5/S1. This is secondary to degenerative findings
--- NOTE | 2023-08-15 11:57 | CM ---
Plan: discharge to [facility] possibly tomorrow pending Na status
Samia Ho @ [facility] aware; CM will continue to follow and coordinate as needed
[2023-08-15] MEDS: CUBICIN 14 MG IV (13:29)
[2023-08-15 15:14] VITALS: BP 133/80
[2023-08-15] MEDS: LOVENOX 40 MG SC (17:17)
[2023-08-15] MEDS: ANUSOL HC 25 MG RECTAL (20:13)
[2023-08-15 23:31] VITALS: BP 114/66
[2023-08-16 04:49] LABS: Hematocrit 32.9 % (37.0-47.0); Hemoglobin 10.6 g/dL (12.0-16.0); Mean Corp Hgb Conc. 32.2 g/dL (33.0-37.0); Mean Corpuscular Hgb 30.2 pg (27.0-31.0); Mean Corpuscular Volume 93.7 fL (81.0-99.0); Mean Platelet Volume 10.6 fL (7.4-10.4); Platelet Count 136 10^3/uL (130-400); Red Blood Cell Count 3.51 10^6/uL (4.20-5.40); Red Cell Dist. Width 20.2 % (11.5-14.5); White Blood Cell Count 8.8 10^3/uL (4.8-10.8)
[2023-08-16] MEDS: SYNTHROID 50 MCG PO (04:51)
[2023-08-16 05:10] LABS: Blood Urea Nitrogen 26 mg/dl (7-17); Calcium 8.7 mg/dl (8.4-10.2); Carbon Dioxide 26 mmol/L (22-30); Chloride 107 mmol/L (98-107); Estimated Creatinine Clearance 35 ml/min; Glucose 120 mg/dl (70-99); Sodium 136 mmol/L (135-145); eGFR 54.87
[2023-08-16 07:15] VITALS: BP 150/85
--- NOTE | 2023-08-16 07:25 | W.PN.HOSP.TC ---
Today's Communication/Plan
-
discharge
Assessment / Plan
Assessment / Plan
HPI: 87-year-old female with a past medical history of pituitary macroadenoma, adrenal insufficiency on chronic steroids, hypothyroidism, left lower extremity DVT in October 2021, hemorrhoids, and chronic urine incontinence presents with chronic
lower back pain and chronic lower extremity edema. Patient recently got an epidural spinal injection on 07/31/2023, but still reports severe back pain with movement. She also reports chronic bilateral lower extremity edema. She has new onset left
lower extremity erythema and warmth, for the past 4 days. She denies leg pain. She denies chest pain, shortness of breath, palpitations. No fever, no nausea, no vomiting.
She used to be on Eliquis for her history of DVT. This has been held for several weeks now, secondary to bleeding hemorrhoids. She has a colonoscopy scheduled with GI, Dr. Wilks.
#Acute left lower extremity cellulitis
#MRSA bacteremia
Status post IV Ancef
Repeat blood cultures on 08/07 and 08/08 negative to date, IVETTE negative for vegetation, MRI of the L-spine no definitive discitis/osteo/abscess. Positive myositis.
MRSA in 3 of 4 blood culture bottles and Enterococcus in 1 of 4 blood culture bottles
ID consult appreciated, 6 wks IV dapto recommended till 09/18/23, PICC placed 08/13/23
Son requesting short-term rehab placement�case management on board
Plan for discharge to short-term rehab on once Na normalizes
Lumbar MRI appreciated
-bilateral sacral insufficiency fractures. The fracture on the left side is new.
-No evidence for discitis/osteomyelitis or abscess in lumbar spine
-Edema in the posterior paraspinal musculature extending from L4 to L5 bilaterally. This has progressed on the right, and is new on the left. Differential diagnosis includes contusions, partial tears, or myositis
-At L2/3, there is a right paracentral disc extrusion measuring 6 mm in diameter. This tracks slightly superiorly from the level of the space. It causes moderate flattening of thecal sac. It does not contact the right L2 nerve root. --Superimposed
annular bulge and facet osteoarthritis combine to cause moderate spinal canal stenosis as well as moderate right foraminal stenosis. These findings are similar to the previous MRI
-Degenerative findings result in moderate right foraminal stenosis at L1/2
-Degenerative findings at L3/4 result in moderate spinal canal stenosis as well as severe right and moderate left foraminal stenosis at L3/4
-Degenerative anterolisthesis of L4 on L5 contributes to moderate spinal canal stenosis and moderate bilateral foraminal stenosis at L4/5
-Redemonstration of severe left foraminal stenosis at L5/S1. This is secondary to degenerative findings
#Hypernatremia
#Diabetes Insipidus
Hypernatremia resolved D5W since discontinued
Per Discussion w/ Dr. Marlin Torres, home desmopressin increased to 0.05 daily with dose skip every 3rd day
#Chronic lower back pain
S/p epidural spinal injection 07/31/2023 (it was her first one)
Continue tramadol 100 mg every 8 hours, added oxycodone 5 mg every 4 hours as needed pain
Recommend she follow-up with pain management in the office
#Constipation
cont bowel regimen
#Recent bleeding hemorrhoids
She stopped Eliquis a few weeks ago for this
She has a colonoscopy scheduled with [facility], Dr. Wilks
Continue Anusol suppository for 7 days
#Stage III CKD
Creatinine at baseline, continue to trend
#Hypokalemia
Repleted and resolved
#Mild Hypermagnesemia
#Bilateral lower extremity edema
Lower extremity Dopplers negative for DVT
cont compressive LOTTIE bandaging
#Pituitary macroadenoma
#Adrenal insufficiency
Continue prednisone 10 mg daily, desmopressin increased as above
#Hypothyroidism
Continue Synthroid
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
PT appreciated SNF vs Home PT (patient and son prefer SNF)
DVT prophylaxis�subcu Lovenox
Full code
Medically stable for discharge SNF rehab with outpatient follow up recommendations.
discussed with patient at bedside and patient's son Jose Elias over phone
Total Time Preparing Discharge ___50____ minutes including examination of the patient, summary of the hospital stay, instructions for continuing care to all relevant caregivers; and preparation of discharge records, prescriptions, and referral
forms if necessary.
Physical Exam
General: No acute distress
HEENT: Normocephalic, Atraumatic, EOMI, MMM, hard of hearing
Respiratory: Clear to Auscultation bilaterally
Cardiac: Normal S1/S2, Regular Rate and Rhythm
GI: Soft, Nontender, Nondistended, Normal Bowel Sounds
Extremities: No Clubbing, Cyanosis, LOTTIE compressive bandaging in place b/l lower ext's clean dry intact
Neuro: Nonfocal/Grossly Intact
Psych: Calm, Cooperative
Derm: No Visible lesions
Anticipated Discharge: Today
Subjective/Interval History
-
Date of Service: August 16, 2023
Seen and examined at bedside in no acute distress sitting up comfortably in chair. Reports feeling well. Denies new acute issues.
Objective Data
-
Labs:
Laboratory Results
08/16/23
04:33
WBC 8.8
Hgb 10.6 L
Hct 32.9 L
Plt Count 136
Sodium 136
Potassium 4.0
Chloride 107
Carbon Dioxide 26
BUN 26 H
Creatinine 1.0
Glucose 120 H
Calcium 8.7
Vital Signs:
Vital Signs
Temp Pulse Resp BP Pulse Ox
97.9 F 73 18 114/66 96
08/15/23 23:31 08/15/23 23:31 08/15/23 23:31 08/15/23 23:31 08/15/23 23:31
I&O
08/15/23 08/16/23 08/17/23
06:59 06:59 06:59
Intake Total 1620 / 1620 1440 / 1440
Balance 1620 / 1620 1440 / 1440
[2023-08-16] MEDS: ULTRAM 100 MG PO (08:55)
[2023-08-16] MEDS: DELTASONE 10 MG PO (08:55)
[2023-08-16] MEDS: SENOKOT-S 2 TABLET PO (08:56)
[2023-08-16] MEDS: HYDROPHOR 1 APPLIC TOPICAL (08:56)
[2023-08-16] MEDS: MIRALAX 17 GRAMS PO (08:56)
[2023-08-16] MEDS: FIBERCON 625 MG PO (08:56)
[2023-08-16 09:20] VITALS: PULSE 66; O2SAT 96
[2023-08-16 12:26] VITALS: BP 123/75; PULSE 71; O2SAT 97
--- NOTE | 2023-08-16 13:01 | W.DCSUMMARY ---
Discharge Summary
Discharge Data
Date of Admission: 08/07/23
Date of Discharge: 08/16/23
-
Pending Results: No
Discharge Plan
-
Patient Disposition: Snf/SNF
Discharge Diagnosis/Procedures: MRSA bacteremia, acute on chronic lower back pain status post recent epidural injection, mild Transaminitis, hypothyroidism, adrenal insufficiency on chronic steroids, pituitary adenoma, diabetes insipidus,
Hypernatremia resolved, constipation resolved, chronic lymphedema lower extremities, hemorrhoids, chronic kidney disease stage III
Condition: Good
Diet: Regular
Activity: As tolerated
Driving Restrictions: Not until seen by your Dr
Bathing Restrictions: None
Blood Work: Please repeat CBC and CMP with primary care provider in 1 week of discharge.
Activity Restrictions/Additional Instructions:
1. Continue daptomycin 700mg IV q24 x 6 weeks till 09/18/2023.
2. Follow CBC, CMP, creatinine kinase, CRP weekly.
3. Can call Dr. Valverde, Infectious Disease, if any lab result concerns.
Wound Care Instructions
Legs: After bathing apply mineral oil(Aquaphor) daily to legs and feet
L medial ankle: Dry dressing under compression as needed for drainage.
Compression stockings knee high both legs daily, can remove at bedtime.
Leg elevation when sitting
Follow up at wound care center if needed, call for an appointment.
Please follow up with primary care provider in 1 week of discharge. Pain specialist, Endocrinology and Orthopedic in 2-4 weeks of discharge. Infectious disease in 4-6 weeks of discharge.
Suppository has been prescribed for hemorrhoids. 5 more days.
Laxatives have been prescribed as needed.
Tramadol has been converted to as needed 100 mg every 8 hours for moderate to severe pain
Home Desmopressin for Diabetes Insipidus has been increased from every other day to Daily with skips for every 3rd day.
For example, if taken Mon, then Skip Mon and resume Mon, then Skip Sat, and resume Sun Mon, then skip Tu... etc
Please take medications as prescribed/recommended and follow up with primary care provider and/or other healthcare provider involved in your care for refills and/or further adjustment to your medication regimen as necessary.
Referrals:
Boo Ramon MD [Active] - in two to four weeks
Otto Marcus DO [Non-Admitting Privileges] - in two to four weeks
Marlin Torres MD [Consulting Staff] - in two to four weeks
Magaly Hill DO [Family Provider] - in one week
Naz Valverde MD [Active] - in four to six weeks
Prescriptions:
New
hydrocortisone acetate 25 mg Suppository
25 mg TN HS 5 Days Qty: 0 0RF
DAPTOmycin [Cubicin] 700 MG
Syringe [Syringe-Pump] 0 ML
As Directed mls/hr IV Q24H
Ordered By: Oleg Bell MD
Last Taken: 08/15/23 13:29 14 mls
polyethylene glycol 3350 [HealthyLax] 17 gram Powder In Packet
17 g PO BIDPRN PRN (Reason: constipation) Qty: 0 0RF
sennosides-docusate sodium [Stool Softener-Laxative] 8.6-50 mg Tablet
2 tab PO BIDPRN PRN (Reason: constipation) Qty: 30 0RF
tramadol 50 mg Tablet
100 mg PO Q8HPRN PRN (Reason: moderate severe pain) 5 Days Qty: 30 0RF
Continued
cholecalciferol (vitamin D3) [Vitamin D3] 2,000 UNIT capsule
2,000 unit PO DAILY
prednisone 5 mg tablet
10 mg PO DAILY
acetaminophen [Tylenol 8 Hour] 650 mg Tablet Extended Release
1,300 mg PO Q8HPRN PRN (Reason: mild pain)
B-complex with vitamin C Capsule
1 cap PO DAILY
inulin-sorbitol 2 gram Tablet,Chewable
2 tab PO DAILY
Collagen Skin Renewal 30-833.3 mg Tablet
1 tab PO DAILY
levothyroxine 50 mcg tablet
50 mcg PO DAILY
Changed
desmopressin 0.1 mg tablet
0.05 mg PO DAILY Qty: 0 0RF
Rx Instructions:
Skip every 3rd dose.
For example, if taken Mon then skip Mon and resume Thur
Held
Eliquis 5 mg Tablet
5 mg PO BID
Hold Instructions: Continue hold Eliquis due to bleeding hemorrhoids. Follow up with GI or primary care provider to determine when safe to resume
Patient Comments:
08/07/23: patient states it was temporarily stopped on the
Discontinued
tramadol 50 mg Tablet
100 mg PO Q8H
Patient Comments:
08/07/23: filled on 08/01/23 for 42 tablets at [facility] pharmacy
Discharge Orders:
Discharge Patient (As Directed); Ordered 08/16/23
Ordered By: Uriel Manjarrez
Discharge Date and Time
Print Language: BULGARIAN
[2023-08-16] MEDS: CUBICIN 14 MG IV (14:24)
--- NOTE | 2023-08-16 14:25 | CM ---
Patient has been medically cleared for discharge to [facility] for longterm and rehab services. Daughter will transport to [facility]. IMM signed.
NURSE TO NURSE REPORT # [phone]
FAX # [phone]
[facility] admissions notified.
[2023-08-16 14:35] VITALS: BP 148/67
== END 2023-08-16 15:51 | DRG 603 ==
LOC: 2 NORTH 15:24
PROVIDERS: Nurse Practitioner; ADMITTING PHYSICIAN Family Medicine; ATTENDING PHYSICIAN Internal Medicine; EMERGENCY PHYSICIAN Emergency Medicine; FAMILY PHYSICIAN Family Medicine; OTHER PHYSICIAN Internal Medicine Infectious Disease
PROC: 02HV33Z Insertion of Infusion Device into Superior Vena Cava, Percutaneous Approach (ICD-10-PCS; 2023-08-13)
DX: L03.116 Cellulitis of left lower limb (principal); E23.2 Diabetes insipidus; E27.40 Unspecified adrenocortical insufficiency; R78.81 Bacteremia; E87.0 Hyperosmolality and hypernatremia; E87.6 Hypokalemia; G89.29 Other chronic pain; M54.59 Other low back pain; E03.9 Hypothyroidism, unspecified; N39.498 Other specified urinary incontinence; D35.2 Benign neoplasm of pituitary gland; B95.62 Methicillin resistant Staphylococcus aureus infection as the cause of diseases classified elsewhere; B95.2 Enterococcus as the cause of diseases classified elsewhere; R74.01 Elevation of levels of liver transaminase levels; K59.00 Constipation, unspecified; I89.0 Lymphedema, not elsewhere classified; K64.8 Other hemorrhoids; N18.30 Chronic kidney disease, stage 3 unspecified; M60.9 Myositis, unspecified; M48.07 Spinal stenosis, lumbosacral region; E83.41 Hypermagnesemia; M48.48XA Fatigue fracture of vertebra, sacral and sacrococcygeal region, initial encounter for fracture; G89.18 Other acute postprocedural pain; Z86.718 Personal history of other venous thrombosis and embolism; Z79.52 Long term (current) use of systemic steroids; Z79.890 Hormone replacement therapy; Z88.0 Allergy status to penicillin; Z79.899 Other long term (current) drug therapy
CPT/HCPCS: 71046; 72158; 74018; 80048; 80053; 80202; 82248; 82550; 83605; 83735; 84100; 84439; 84443; 85025; 85027; 85652; 86140; 87040; 87077; 87150; 87186; 87205; 93306; 93970; 96374; 97116; 97162; 97166; 97530; 97535; 99285; A9575; J0878

== ENCOUNTER → 2023-08-18 10:23 | Outpatient (REF) | payer MEDICARE, OTHER, SELFPAY ==
[2023-08-18 12:11] LABS: % Basophils 0.6 % (0-2); % Immature Granulocytes 0.9 % (0-0.5); % Lymphocytes 29.4 % (20.5-51.1); % Monocytes 11.8 % (1.7-9.3); % Neutrophils 55.3 % (42.2-75.2); Absolute Basophils 0.1 10^3/uL (0-0.2); Absolute Eosinophils 0.2 10^3/uL (0-0.7); Absolute Immature Granulocytes 0.1 10^3/uL (0-0.05); Absolute Lymphocytes 3.6 10^3/uL (1.2-3.4); Absolute Monocytes 1.5 10^3/uL (0.1-0.6); Absolute Neutrophils 6.8 10^3/uL (1.4-6.5); Hematocrit 42.1 % (37.0-47.0); Hemoglobin 12.8 g/dL (12.0-16.0); Mean Corp Hgb Conc. 30.4 g/dL (33.0-37.0); Mean Corpuscular Hgb 29.7 pg (27.0-31.0); Mean Corpuscular Volume 97.7 fL (81.0-99.0); Mean Platelet Volume 11.4 fL (7.4-10.4); Nucleated Red Blood Cells % 0 %; Platelet Count 169 10^3/uL (130-400); Red Blood Cell Count 4.31 10^6/uL (4.20-5.40); Red Cell Dist. Width 20.8 % (11.5-14.5); White Blood Cell Count 12.2 10^3/uL (4.8-10.8)
[2023-08-18 12:41] LABS: Blood Urea Nitrogen 16 mg/dl (7-17); Calcium 9.9 mg/dl (8.4-10.2); Carbon Dioxide 27 mmol/L (22-30); Chloride 115 mmol/L (98-107); Glucose 87 mg/dl (70-99); Potassium 3.7 mmol/L (3.5-5.1); Sodium 151 mmol/L (135-145); eGFR 48.94
== END ==
LOC: OLABP 10:23
PROVIDERS: ATTENDING PHYSICIAN Family Medicine
DX: L03.116 Cellulitis of left lower limb (principal); R78.81 Bacteremia; B95.62 Methicillin resistant Staphylococcus aureus infection as the cause of diseases classified elsewhere; R74.01 Elevation of levels of liver transaminase levels; M62.81 Muscle weakness (generalized); E27.49 Other adrenocortical insufficiency; D35.2 Benign neoplasm of pituitary gland; E11.9 Type 2 diabetes mellitus without complications; N18.30 Chronic kidney disease, stage 3 unspecified; I89.0 Lymphedema, not elsewhere classified; E87.0 Hyperosmolality and hypernatremia
CPT/HCPCS: 36415; 80048; 85025

== ENCOUNTER → 2023-08-21 11:20 | Outpatient (REF) | payer OTHER, MEDICARE, SELFPAY ==
[2023-08-21 12:13] LABS: % Basophils 0.5 % (0-2); % Eosinophils 1.9 % (0-6); % Immature Granulocytes 1.4 % (0-0.5); % Lymphocytes 26.5 % (20.5-51.1); % Monocytes 11.4 % (1.7-9.3); % Neutrophils 58.3 % (42.2-75.2); Absolute Basophils 0.1 10^3/uL (0-0.2); Absolute Eosinophils 0.2 10^3/uL (0-0.7); Absolute Immature Granulocytes 0.1 10^3/uL (0-0.05); Absolute Lymphocytes 2.6 10^3/uL (1.2-3.4); Absolute Monocytes 1.1 10^3/uL (0.1-0.6); Absolute Neutrophils 5.7 10^3/uL (1.4-6.5); Hematocrit 36.6 % (37.0-47.0); Hemoglobin 11.1 g/dL (12.0-16.0); Mean Corp Hgb Conc. 30.3 g/dL (33.0-37.0); Mean Corpuscular Hgb 29.1 pg (27.0-31.0); Mean Corpuscular Volume 96.1 fL (81.0-99.0); Mean Platelet Volume 10.9 fL (7.4-10.4); Nucleated Red Blood Cells % 0 %; Platelet Count 147 10^3/uL (130-400); Red Blood Cell Count 3.81 10^6/uL (4.20-5.40); Red Cell Dist. Width 19.9 % (11.5-14.5); White Blood Cell Count 9.8 10^3/uL (4.8-10.8)
[2023-08-21 12:19] LABS: ALT (SGPT) 84 U/L (0-35); AST (SGOT) 46 U/L (14-36); Albumin 3.8 g/dl (3.5-5.0); Alkaline Phosphatase 320 U/L (38-126); Blood Urea Nitrogen 19 mg/dl (7-17); Carbon Dioxide 24 mmol/L (22-30); Chloride 113 mmol/L (98-107); Creatine Phosphokinase 41 U/L (30-135); Glucose 73 mg/dl (70-99); Potassium 3.7 mmol/L (3.5-5.1); Sodium 143 mmol/L (135-145); Total Bilirubin 0.4 mg/dl (0.2-1.3); Total Protein 5.9 g/dl (6.3-8.2); eGFR 48.94
== END ==
LOC: OLABP 11:20
PROVIDERS: ATTENDING PHYSICIAN Family Medicine
DX: L03.116 Cellulitis of left lower limb (principal); B95.62 Methicillin resistant Staphylococcus aureus infection as the cause of diseases classified elsewhere; R74.01 Elevation of levels of liver transaminase levels; M62.81 Muscle weakness (generalized); E27.49 Other adrenocortical insufficiency; D35.2 Benign neoplasm of pituitary gland; E11.9 Type 2 diabetes mellitus without complications; N18.30 Chronic kidney disease, stage 3 unspecified; I89.0 Lymphedema, not elsewhere classified
CPT/HCPCS: 36415; 80053; 82550; 85025; 86140

== ENCOUNTER → 2023-08-28 11:33 | Outpatient (REF) | payer OTHER, MEDICARE, SELFPAY ==
[2023-08-28 12:18] LABS: ALT (SGPT) 65 U/L (0-35); AST (SGOT) 33 U/L (14-36); Albumin 3.7 g/dl (3.5-5.0); Alkaline Phosphatase 275 U/L (38-126); Blood Urea Nitrogen 14 mg/dl (7-17); Carbon Dioxide 22 mmol/L (22-30); Chloride 111 mmol/L (98-107); Creatine Phosphokinase 42 U/L (30-135); Glucose 75 mg/dl (70-99); Potassium 3.3 mmol/L (3.5-5.1); Sodium 139 mmol/L (135-145); Total Bilirubin 0.5 mg/dl (0.2-1.3); Total Protein 5.9 g/dl (6.3-8.2); eGFR > 60.00
[2023-08-28 12:20] LABS: % Basophils 0.4 % (0-2); % Eosinophils 6.4 % (0-6); % Immature Granulocytes 1.3 % (0-0.5); % Lymphocytes 16.4 % (20.5-51.1); % Monocytes 11.7 % (1.7-9.3); % Neutrophils 63.8 % (42.2-75.2); Absolute Eosinophils 0.6 10^3/uL (0-0.7); Absolute Immature Granulocytes 0.1 10^3/uL (0-0.05); Absolute Lymphocytes 1.5 10^3/uL (1.2-3.4); Absolute Monocytes 1.1 10^3/uL (0.1-0.6); Absolute Neutrophils 5.9 10^3/uL (1.4-6.5); Hematocrit 34.7 % (37.0-47.0); Hemoglobin 11.1 g/dL (12.0-16.0); Mean Corpuscular Hgb 30.3 pg (27.0-31.0); Mean Corpuscular Volume 94.8 fL (81.0-99.0); Mean Platelet Volume 10.9 fL (7.4-10.4); Nucleated Red Blood Cells % 0 %; Platelet Count 191 10^3/uL (130-400); Red Blood Cell Count 3.66 10^6/uL (4.20-5.40); Red Cell Dist. Width 19.3 % (11.5-14.5); White Blood Cell Count 9.3 10^3/uL (4.8-10.8)
== END ==
LOC: OLABP 11:33
PROVIDERS: ATTENDING PHYSICIAN Family Medicine
DX: L03.116 Cellulitis of left lower limb (principal); R78.81 Bacteremia; B95.62 Methicillin resistant Staphylococcus aureus infection as the cause of diseases classified elsewhere; R74.01 Elevation of levels of liver transaminase levels; M62.81 Muscle weakness (generalized); E27.49 Other adrenocortical insufficiency; D35.2 Benign neoplasm of pituitary gland; E11.9 Type 2 diabetes mellitus without complications; N18.30 Chronic kidney disease, stage 3 unspecified; I89.0 Lymphedema, not elsewhere classified
CPT/HCPCS: 36415; 80053; 82550; 85025; 86140

== ENCOUNTER → 2023-08-29 11:15 | Outpatient (REF) | payer MEDICARE, OTHER, SELFPAY ==
[2023-08-29 13:16] LABS: % Basophils 0.5 % (0-2); % Eosinophils 5.6 % (0-6); % Immature Granulocytes 1.1 % (0-0.5); % Lymphocytes 18.4 % (20.5-51.1); % Monocytes 9.9 % (1.7-9.3); % Neutrophils 64.5 % (42.2-75.2); Absolute Basophils 0.1 10^3/uL (0-0.2); Absolute Eosinophils 0.6 10^3/uL (0-0.7); Absolute Immature Granulocytes 0.1 10^3/uL (0-0.05); Absolute Lymphocytes 1.9 10^3/uL (1.2-3.4); Absolute Neutrophils 6.5 10^3/uL (1.4-6.5); Hematocrit 40.2 % (37.0-47.0); Hemoglobin 12.6 g/dL (12.0-16.0); Mean Corp Hgb Conc. 31.3 g/dL (33.0-37.0); Mean Corpuscular Hgb 30.7 pg (27.0-31.0); Mean Corpuscular Volume 97.8 fL (81.0-99.0); Mean Platelet Volume 10.4 fL (7.4-10.4); Nucleated Red Blood Cells % 0 %; Platelet Count 199 10^3/uL (130-400); Red Blood Cell Count 4.11 10^6/uL (4.20-5.40); Red Cell Dist. Width 19.7 % (11.5-14.5); White Blood Cell Count 10.1 10^3/uL (4.8-10.8)
[2023-08-29 13:34] LABS: Blood Urea Nitrogen 14 mg/dl (7-17); Calcium 9.5 mg/dl (8.4-10.2); Carbon Dioxide 22 mmol/L (22-30); Chloride 112 mmol/L (98-107); Glucose 70 mg/dl (70-99); Sodium 143 mmol/L (135-145); eGFR 54.87
== END ==
LOC: OLABP 11:15
PROVIDERS: ATTENDING PHYSICIAN Family Medicine
DX: R78.81 Bacteremia (principal); M62.81 Muscle weakness (generalized)
CPT/HCPCS: 36415; 80048; 85025

== ENCOUNTER → 2023-08-31 10:07 | Outpatient (REF) | payer OTHER, MEDICARE, SELFPAY ==
[2023-08-31 10:30] LABS: Hematocrit 38.7 % (37.0-47.0); Hemoglobin 12.2 g/dL (12.0-16.0); Mean Corp Hgb Conc. 31.5 g/dL (33.0-37.0); Mean Corpuscular Hgb 30.7 pg (27.0-31.0); Mean Corpuscular Volume 97.2 fL (81.0-99.0); Mean Platelet Volume 10.7 fL (7.4-10.4); Platelet Count 181 10^3/uL (130-400); Red Blood Cell Count 3.98 10^6/uL (4.20-5.40); Red Cell Dist. Width 19.5 % (11.5-14.5); White Blood Cell Count 11.9 10^3/uL (4.8-10.8)
[2023-08-31 10:56] LABS: Creatine Phosphokinase 37 U/L (30-135)
== END ==
LOC: OLABP 10:07
PROVIDERS: ATTENDING PHYSICIAN Family Medicine
DX: I89.0 Lymphedema, not elsewhere classified (principal); E87.0 Hyperosmolality and hypernatremia; E11.9 Type 2 diabetes mellitus without complications; N18.30 Chronic kidney disease, stage 3 unspecified; L03.116 Cellulitis of left lower limb; R78.81 Bacteremia; B95.62 Methicillin resistant Staphylococcus aureus infection as the cause of diseases classified elsewhere; R74.01 Elevation of levels of liver transaminase levels; M62.81 Muscle weakness (generalized); E27.49 Other adrenocortical insufficiency; D35.2 Benign neoplasm of pituitary gland
CPT/HCPCS: 36415; 82550; 85027; 86140

== ENCOUNTER → 2023-09-01 10:57 | Outpatient (REF) | payer OTHER, MEDICARE, SELFPAY ==
[2023-09-01 11:22] LABS: ALT (SGPT) 55 U/L (0-35); AST (SGOT) 30 U/L (14-36); Albumin 3.8 g/dl (3.5-5.0); Alkaline Phosphatase 253 U/L (38-126); Blood Urea Nitrogen 14 mg/dl (7-17); Calcium 9.1 mg/dl (8.4-10.2); Carbon Dioxide 22 mmol/L (22-30); Chloride 111 mmol/L (98-107); Direct Bilirubin 0.3 mg/dl (0.0-0.4); Glucose 65 mg/dl (70-99); Potassium 3.4 mmol/L (3.5-5.1); Sodium 143 mmol/L (135-145); Total Bilirubin 0.6 mg/dl (0.2-1.3); eGFR 54.87
[2023-09-01 13:15] LABS: Free T4 0.93 ng/dl (0.78-2.19)
== END ==
LOC: OLABP 10:57
PROVIDERS: ATTENDING PHYSICIAN Family Medicine
DX: L03.116 Cellulitis of left lower limb (principal); R78.89 Finding of other specified substances, not normally found in blood; B95.62 Methicillin resistant Staphylococcus aureus infection as the cause of diseases classified elsewhere; R74.01 Elevation of levels of liver transaminase levels; M62.81 Muscle weakness (generalized); E27.49 Other adrenocortical insufficiency; D35.2 Benign neoplasm of pituitary gland; E11.9 Type 2 diabetes mellitus without complications; N18.30 Chronic kidney disease, stage 3 unspecified
CPT/HCPCS: 36415; 80053; 82248; 84439

== ENCOUNTER → 2023-09-04 11:16 | Outpatient (REF) | payer MEDICARE, OTHER, SELFPAY ==
[2023-09-04 12:36] LABS: ALT (SGPT) 51 U/L (0-35); AST (SGOT) 36 U/L (14-36); Albumin 4.4 g/dl (3.5-5.0); Alkaline Phosphatase 242 U/L (38-126); Blood Urea Nitrogen 17 mg/dl (7-17); Calcium 9.4 mg/dl (8.4-10.2); Carbon Dioxide 23 mmol/L (22-30); Chloride 110 mmol/L (98-107); Creatine Phosphokinase 44 U/L (30-135); Glucose 71 mg/dl (70-99); Sodium 143 mmol/L (135-145); Total Bilirubin 0.6 mg/dl (0.2-1.3); Total Protein 6.6 g/dl (6.3-8.2); eGFR 48.94
[2023-09-04 13:20] LABS: % Basophils 0.6 % (0-2); % Immature Granulocytes 1.7 % (0-0.5); % Lymphocytes 22.2 % (20.5-51.1); % Monocytes 9.8 % (1.7-9.3); % Neutrophils 62.7 % (42.2-75.2); Absolute Basophils 0.1 10^3/uL (0-0.2); Absolute Eosinophils 0.3 10^3/uL (0-0.7); Absolute Immature Granulocytes 0.2 10^3/uL (0-0.05); Absolute Lymphocytes 2.5 10^3/uL (1.2-3.4); Absolute Monocytes 1.1 10^3/uL (0.1-0.6); Absolute Neutrophils 7.1 10^3/uL (1.4-6.5); Hematocrit 38.6 % (37.0-47.0); Hemoglobin 12.5 g/dL (12.0-16.0); Mean Corp Hgb Conc. 32.4 g/dL (33.0-37.0); Mean Corpuscular Hgb 31.4 pg (27.0-31.0); Nucleated Red Blood Cells % 0 %; Platelet Count 213 10^3/uL (130-400); Red Blood Cell Count 3.98 10^6/uL (4.20-5.40); Red Cell Dist. Width 18.4 % (11.5-14.5); White Blood Cell Count 11.4 10^3/uL (4.8-10.8)
== END ==
LOC: OLABP 11:16
PROVIDERS: ATTENDING PHYSICIAN Family Medicine
DX: M62.59 Muscle wasting and atrophy, not elsewhere classified, multiple sites (principal); M62.81 Muscle weakness (generalized); R78.81 Bacteremia
CPT/HCPCS: 80053; 82550; 85025; 86140

== ENCOUNTER → 2023-09-11 11:20 | Outpatient (REF) | payer OTHER, MEDICARE, SELFPAY ==
[2023-09-11 12:07] LABS: % Basophils 0.7 % (0-2); % Eosinophils 1.7 % (0-6); % Immature Granulocytes 1.8 % (0-0.5); % Lymphocytes 16.5 % (20.5-51.1); % Monocytes 7.6 % (1.7-9.3); % Neutrophils 71.7 % (42.2-75.2); Absolute Basophils 0.1 10^3/uL (0-0.2); Absolute Eosinophils 0.2 10^3/uL (0-0.7); Absolute Immature Granulocytes 0.2 10^3/uL (0-0.05); Absolute Lymphocytes 1.9 10^3/uL (1.2-3.4); Absolute Monocytes 0.9 10^3/uL (0.1-0.6); Absolute Neutrophils 8.2 10^3/uL (1.4-6.5); Hematocrit 35.7 % (37.0-47.0); Hemoglobin 11.3 g/dL (12.0-16.0); Mean Corp Hgb Conc. 31.7 g/dL (33.0-37.0); Mean Corpuscular Hgb 30.5 pg (27.0-31.0); Mean Corpuscular Volume 96.2 fL (81.0-99.0); Mean Platelet Volume 10.4 fL (7.4-10.4); Nucleated Red Blood Cells % 0 %; Platelet Count 201 10^3/uL (130-400); Red Blood Cell Count 3.71 10^6/uL (4.20-5.40); Red Cell Dist. Width 18.3 % (11.5-14.5); White Blood Cell Count 11.4 10^3/uL (4.8-10.8)
[2023-09-11 12:16] LABS: ALT (SGPT) 52 U/L (0-35); AST (SGOT) 33 U/L (14-36); Albumin 4.1 g/dl (3.5-5.0); Alkaline Phosphatase 204 U/L (38-126); Blood Urea Nitrogen 19 mg/dl (7-17); Calcium 9.5 mg/dl (8.4-10.2); Carbon Dioxide 23 mmol/L (22-30); Chloride 109 mmol/L (98-107); Creatine Phosphokinase 42 U/L (30-135); Glucose 81 mg/dl (70-99); Potassium 4.1 mmol/L (3.5-5.1); Sodium 141 mmol/L (135-145); Total Bilirubin 0.3 mg/dl (0.2-1.3); Total Protein 6.3 g/dl (6.3-8.2); eGFR 44.08
== END ==
LOC: OLABP 11:20
PROVIDERS: ATTENDING PHYSICIAN Family Medicine
DX: R74.01 Elevation of levels of liver transaminase levels (principal); B95.62 Methicillin resistant Staphylococcus aureus infection as the cause of diseases classified elsewhere; M62.81 Muscle weakness (generalized); E27.49 Other adrenocortical insufficiency; D35.2 Benign neoplasm of pituitary gland; E11.9 Type 2 diabetes mellitus without complications; N18.30 Chronic kidney disease, stage 3 unspecified
CPT/HCPCS: 36415; 80053; 82550; 85025; 86140

== ENCOUNTER → 2023-09-15 10:57 | Outpatient (REF) | payer OTHER, SELFPAY ==
[2023-09-15 11:23] LABS: % Basophils 0.5 % (0-2); % Immature Granulocytes 1.7 % (0-0.5); % Lymphocytes 24.2 % (20.5-51.1); % Neutrophils 59.6 % (42.2-75.2); Absolute Basophils 0.1 10^3/uL (0-0.2); Absolute Eosinophils 0.3 10^3/uL (0-0.7); Absolute Immature Granulocytes 0.2 10^3/uL (0-0.05); Absolute Lymphocytes 2.3 10^3/uL (1.2-3.4); Absolute Neutrophils 5.6 10^3/uL (1.4-6.5); Hematocrit 34.1 % (37.0-47.0); Hemoglobin 11.1 g/dL (12.0-16.0); Mean Corp Hgb Conc. 32.6 g/dL (33.0-37.0); Mean Corpuscular Hgb 31.4 pg (27.0-31.0); Mean Corpuscular Volume 96.6 fL (81.0-99.0); Mean Platelet Volume 10.5 fL (7.4-10.4); Nucleated Red Blood Cells % 0 %; Platelet Count 196 10^3/uL (130-400); Red Blood Cell Count 3.53 10^6/uL (4.20-5.40); Red Cell Dist. Width 17.9 % (11.5-14.5); White Blood Cell Count 9.4 10^3/uL (4.8-10.8)
[2023-09-15 11:38] LABS: Blood Urea Nitrogen 21 mg/dl (7-17); Calcium 8.8 mg/dl (8.4-10.2); Carbon Dioxide 24 mmol/L (22-30); Chloride 108 mmol/L (98-107); Glucose 76 mg/dl (70-99); Potassium 3.6 mmol/L (3.5-5.1); Sodium 136 mmol/L (135-145); eGFR 54.87
== END ==
LOC: OLABP 10:57
PROVIDERS: ATTENDING PHYSICIAN Family Medicine
DX: L03.116 Cellulitis of left lower limb (principal); R78.81 Bacteremia; B95.62 Methicillin resistant Staphylococcus aureus infection as the cause of diseases classified elsewhere; R74.01 Elevation of levels of liver transaminase levels; M62.81 Muscle weakness (generalized); E27.49 Other adrenocortical insufficiency; D35.2 Benign neoplasm of pituitary gland; E11.9 Type 2 diabetes mellitus without complications; N18.30 Chronic kidney disease, stage 3 unspecified
CPT/HCPCS: 80048; 85025

== ENCOUNTER → 2023-09-18 09:07 | Outpatient (REF) | payer OTHER, MEDICARE, SELFPAY ==
[2023-09-18 11:24] LABS: % Basophils 0.7 % (0-2); % Immature Granulocytes 1.4 % (0-0.5); % Lymphocytes 23.1 % (20.5-51.1); % Monocytes 10.7 % (1.7-9.3); % Neutrophils 61.1 % (42.2-75.2); Absolute Basophils 0.1 10^3/uL (0-0.2); Absolute Eosinophils 0.3 10^3/uL (0-0.7); Absolute Immature Granulocytes 0.2 10^3/uL (0-0.05); Absolute Lymphocytes 2.4 10^3/uL (1.2-3.4); Absolute Monocytes 1.1 10^3/uL (0.1-0.6); Absolute Neutrophils 6.4 10^3/uL (1.4-6.5); Hematocrit 35.2 % (37.0-47.0); Hemoglobin 11.3 g/dL (12.0-16.0); Mean Corp Hgb Conc. 32.1 g/dL (33.0-37.0); Mean Corpuscular Hgb 31.7 pg (27.0-31.0); Mean Corpuscular Volume 98.6 fL (81.0-99.0); Mean Platelet Volume 10.7 fL (7.4-10.4); Nucleated Red Blood Cells % 0 %; Platelet Count 190 10^3/uL (130-400); Red Blood Cell Count 3.57 10^6/uL (4.20-5.40); Red Cell Dist. Width 17.8 % (11.5-14.5); White Blood Cell Count 10.5 10^3/uL (4.8-10.8)
[2023-09-18 11:25] LABS: ALT (SGPT) 45 U/L (0-35); AST (SGOT) 29 U/L (14-36); Alkaline Phosphatase 176 U/L (38-126); Blood Urea Nitrogen 22 mg/dl (7-17); Calcium 9.4 mg/dl (8.4-10.2); Carbon Dioxide 23 mmol/L (22-30); Chloride 113 mmol/L (98-107); Creatine Phosphokinase 36 U/L (30-135); Glucose 68 mg/dl (70-99); Potassium 3.8 mmol/L (3.5-5.1); Sodium 144 mmol/L (135-145); Total Bilirubin 0.3 mg/dl (0.2-1.3); Total Protein 6.2 g/dl (6.3-8.2); eGFR 48.94
== END ==
LOC: OLABP 09:07
PROVIDERS: ATTENDING PHYSICIAN Family Medicine
DX: L03.116 Cellulitis of left lower limb (principal); R78.81 Bacteremia; B95.62 Methicillin resistant Staphylococcus aureus infection as the cause of diseases classified elsewhere; R74.01 Elevation of levels of liver transaminase levels; E27.49 Other adrenocortical insufficiency; D35.2 Benign neoplasm of pituitary gland; N18.30 Chronic kidney disease, stage 3 unspecified; E11.9 Type 2 diabetes mellitus without complications
CPT/HCPCS: 36415; 80053; 82550; 85025; 86140

== ENCOUNTER → 2023-09-25 08:16 | Outpatient (REF) | payer MEDICARE, OTHER, SELFPAY ==
[2023-09-25 09:01] VITALS: BP 161/77; BP_SYST 67
[2023-09-25 10:57] VITALS: BP 172/84; BP_SYST 72
[2023-09-25 11:05] VITALS: BP 172/84
[2023-09-25 12:47] LABS: % Basophils 0.8 % (0-2); % Eosinophils 3.2 % (0-6); % Immature Granulocytes 1.5 % (0-0.5); % Lymphocytes 28.9 % (20.5-51.1); % Monocytes 10.6 % (1.7-9.3); Absolute Basophils 0.1 10^3/uL (0-0.2); Absolute Eosinophils 0.3 10^3/uL (0-0.7); Absolute Immature Granulocytes 0.2 10^3/uL (0-0.05); Absolute Lymphocytes 3.1 10^3/uL (1.2-3.4); Absolute Monocytes 1.1 10^3/uL (0.1-0.6); Absolute Neutrophils 5.8 10^3/uL (1.4-6.5); Hemoglobin 12.9 g/dL (12.0-16.0); Mean Corp Hgb Conc. 31.5 g/dL (33.0-37.0); Mean Corpuscular Hgb 31.6 pg (27.0-31.0); Mean Corpuscular Volume 100.5 fL (81.0-99.0); Mean Platelet Volume 11.2 fL (7.4-10.4); Nucleated Red Blood Cells % 0 %; Platelet Count 204 10^3/uL (130-400); Red Blood Cell Count 4.08 10^6/uL (4.20-5.40); Red Cell Dist. Width 17.2 % (11.5-14.5); White Blood Cell Count 10.6 10^3/uL (4.8-10.8)
[2023-09-25 13:00] LABS: ALT (SGPT) 48 U/L (0-35); AST (SGOT) 36 U/L (14-36); Albumin 4.7 g/dl (3.5-5.0); Alkaline Phosphatase 158 U/L (38-126); Blood Urea Nitrogen 21 mg/dl (7-17); Calcium 9.7 mg/dl (8.4-10.2); Carbon Dioxide 24 mmol/L (22-30); Chloride 110 mmol/L (98-107); Creatine Phosphokinase 40 U/L (30-135); Glucose 66 mg/dl (70-99); Potassium 4.1 mmol/L (3.5-5.1); Sodium 144 mmol/L (135-145); Total Bilirubin 0.4 mg/dl (0.2-1.3); Total Protein 7.1 g/dl (6.3-8.2); eGFR 48.94
== END ==
LOC: RADI 08:16
PROVIDERS: ATTENDING PHYSICIAN Family Medicine; FAMILY PHYSICIAN Family Medicine
DX: I82.409 Acute embolism and thrombosis of unspecified deep veins of unspecified lower extremity (principal)
CPT/HCPCS: 37191; 80053; 82550; 85025; 86140; C1769; C1880

== ENCOUNTER → 2023-10-11 11:33 | Outpatient (REF) | payer MEDICARE, OTHER, SELFPAY ==
[2023-10-11 16:13] LABS: % Basophils 0.6 % (0-2); % Eosinophils 2.4 % (0-6); % Immature Granulocytes 1.9 % (0-0.5); % Lymphocytes 29.1 % (20.5-51.1); % Monocytes 9.6 % (1.7-9.3); % Neutrophils 56.4 % (42.2-75.2); Absolute Basophils 0.1 10^3/uL (0-0.2); Absolute Eosinophils 0.2 10^3/uL (0-0.7); Absolute Immature Granulocytes 0.2 10^3/uL (0-0.05); Absolute Lymphocytes 2.9 10^3/uL (1.2-3.4); Absolute Monocytes 0.9 10^3/uL (0.1-0.6); Absolute Neutrophils 5.5 10^3/uL (1.4-6.5); Hematocrit 36.6 % (37.0-47.0); Hemoglobin 11.8 g/dL (12.0-16.0); Mean Corp Hgb Conc. 32.2 g/dL (33.0-37.0); Mean Corpuscular Volume 96.1 fL (81.0-99.0); Mean Platelet Volume 10.3 fL (7.4-10.4); Nucleated Red Blood Cells % 0 %; Platelet Count 195 10^3/uL (130-400); Red Blood Cell Count 3.81 10^6/uL (4.20-5.40); Red Cell Dist. Width 15.8 % (11.5-14.5); White Blood Cell Count 9.8 10^3/uL (4.8-10.8)
[2023-10-11 16:22] LABS: ALT (SGPT) 38 U/L (0-35); AST (SGOT) 40 U/L (14-36); Albumin 4.5 g/dl (3.5-5.0); Alkaline Phosphatase 102 U/L (38-126); Blood Urea Nitrogen 14 mg/dl (7-17); Calcium 9.6 mg/dl (8.4-10.2); Carbon Dioxide 25 mmol/L (22-30); Chloride 109 mmol/L (98-107); Erythrocyte Sed Rate 10 mm/hour (0-20); Glucose 79 mg/dl (70-99); Potassium 3.6 mmol/L (3.5-5.1); Sodium 143 mmol/L (135-145); Total Bilirubin 0.6 mg/dl (0.2-1.3); Total Protein 6.9 g/dl (6.3-8.2); eGFR 48.94
[2023-10-11 16:40] LABS: Free T4 0.85 ng/dl (0.78-2.19); Prolactin 46.7 ng/ml (3.0-18.6)
[2023-10-11 16:54] LABS: TSH < 0.02 uIU/ml (0.47-4.68)
== END ==
LOC: RAD 11:33
PROVIDERS: ATTENDING PHYSICIAN Family Medicine
DX: R55 Syncope and collapse (principal); Z86.718 Personal history of other venous thrombosis and embolism; E27.1 Primary adrenocortical insufficiency; I87.2 Venous insufficiency (chronic) (peripheral)
CPT/HCPCS: 36415; 80053; 84146; 84439; 84443; 85025; 85379; 85652; 86140; 93970

== ENCOUNTER → 2023-12-27 12:51 | Outpatient (REF) | payer MEDICARE, OTHER, SELFPAY | LOC: HWRAD 12:51 | PROVIDERS: ATTENDING PHYSICIAN Internal Medicine Endocrinology, Diabetes & Metabolism; FAMILY PHYSICIAN Family Medicine | DX: D49.7 Neoplasm of unspecified behavior of endocrine glands and other parts of nervous system (principal); E23.0 Hypopituitarism | CPT/HCPCS: 77080 ==

== ENCOUNTER → 2024-01-08 15:35 | Outpatient (REF) | payer MEDICARE, OTHER, SELFPAY ==
[2024-01-08 17:01] LABS: Iron 81 ug/dl (37-170)
[2024-01-08 17:11] LABS: Percent Saturation 33 % (20-50); Total Iron Binding Capacity 241 ug/dl (265-497)
== END ==
LOC: REG 15:35
PROVIDERS: ATTENDING PHYSICIAN Internal Medicine Hematology & Oncology; FAMILY PHYSICIAN Family Medicine; REFERRING PHYSICIAN Internal Medicine Endocrinology, Diabetes & Metabolism
DX: D47.2 Monoclonal gammopathy (principal); I82.401 Acute embolism and thrombosis of unspecified deep veins of right lower extremity; I82.4Z2 Acute embolism and thrombosis of unspecified deep veins of left distal lower extremity; D68.69 Other thrombophilia; D50.9 Iron deficiency anemia, unspecified
CPT/HCPCS: 36415; 82728; 83540; 83550

== ENCOUNTER → 2024-01-09 08:09 | Outpatient (REF) | payer MEDICARE, OTHER, SELFPAY ==
[2024-01-09 08:56] LABS: % Basophils 0.7 % (0-2); % Eosinophils 2.5 % (0-6); % Immature Granulocytes 0.9 % (0-0.5); % Monocytes 11.6 % (1.7-9.3); % Neutrophils 55.3 % (42.2-75.2); Absolute Basophils 0.1 10^3/uL (0-0.2); Absolute Eosinophils 0.2 10^3/uL (0-0.7); Absolute Immature Granulocytes 0.1 10^3/uL (0-0.05); Absolute Lymphocytes 2.2 10^3/uL (1.2-3.4); Absolute Monocytes 0.9 10^3/uL (0.1-0.6); Absolute Neutrophils 4.2 10^3/uL (1.4-6.5); Hematocrit 42.3 % (37.0-47.0); Hemoglobin 13.4 g/dL (12.0-16.0); Mean Corp Hgb Conc. 31.7 g/dL (33.0-37.0); Mean Corpuscular Hgb 30.8 pg (27.0-31.0); Mean Corpuscular Volume 97.2 fL (81.0-99.0); Mean Platelet Volume 10.2 fL (7.4-10.4); Nucleated Red Blood Cells % 0 %; Platelet Count 186 10^3/uL (130-400); Red Blood Cell Count 4.35 10^6/uL (4.20-5.40); Red Cell Dist. Width 14.1 % (11.5-14.5); White Blood Cell Count 7.6 10^3/uL (4.8-10.8)
[2024-01-09 09:08] LABS: D-Dimer 0.38 ug/mlFEU (0.00-0.50)
== END ==
LOC: REG 08:09
PROVIDERS: ATTENDING PHYSICIAN Internal Medicine Hematology & Oncology; FAMILY PHYSICIAN Family Medicine; OTHER PHYSICIAN Internal Medicine Endocrinology, Diabetes & Metabolism
DX: D47.2 Monoclonal gammopathy (principal); I82.401 Acute embolism and thrombosis of unspecified deep veins of right lower extremity; I82.4Z2 Acute embolism and thrombosis of unspecified deep veins of left distal lower extremity; D68.69 Other thrombophilia; D50.9 Iron deficiency anemia, unspecified
CPT/HCPCS: 36415; 85025; 85379

== ENCOUNTER 2024-01-22 18:09 | Inpatient (IN) | payer MEDICARE, OTHER, SELFPAY ==
[2024-01-22] VITALS (9 sets, daily range): BP systolic 113–167; BP diastolic 59–79; BMI 33.1
[2024-01-22 13:34] LABS: % Basophils 0.6 % (0-2); % Eosinophils 2.4 % (0-6); % Immature Granulocytes 0.8 % (0-0.5); % Lymphocytes 23.1 % (20.5-51.1); % Monocytes 11.3 % (1.7-9.3); % Neutrophils 61.8 % (42.2-75.2); Absolute Basophils 0.1 10^3/uL (0-0.2); Absolute Eosinophils 0.2 10^3/uL (0-0.7); Absolute Immature Granulocytes 0.1 10^3/uL (0-0.05); Absolute Lymphocytes 2.3 10^3/uL (1.2-3.4); Absolute Monocytes 1.1 10^3/uL (0.1-0.6); Hematocrit 37.4 % (37.0-47.0); Hemoglobin 11.8 g/dL (12.0-16.0); Mean Corp Hgb Conc. 31.6 g/dL (33.0-37.0); Mean Corpuscular Hgb 30.6 pg (27.0-31.0); Mean Corpuscular Volume 96.9 fL (81.0-99.0); Mean Platelet Volume 10.4 fL (7.4-10.4); Nucleated Red Blood Cells % 0 %; Platelet Count 190 10^3/uL (130-400); Red Blood Cell Count 3.86 10^6/uL (4.20-5.40); Red Cell Dist. Width 14.2 % (11.5-14.5); White Blood Cell Count 9.8 10^3/uL (4.8-10.8)
[2024-01-22 14:12] LABS: ALT (SGPT) 30 U/L (0-35); AST (SGOT) 32 U/L (14-36); Albumin 4.2 g/dl (3.5-5.0); Alkaline Phosphatase 51 U/L (38-126); Blood Urea Nitrogen 26 mg/dl (7-17); Calcium 9.4 mg/dl (8.4-10.2); Carbon Dioxide 29 mmol/L (22-30); Chloride 103 mmol/L (98-107); Glucose 95 mg/dl (70-99); Potassium 3.7 mmol/L (3.5-5.1); Sodium 140 mmol/L (135-145); Total Bilirubin 0.6 mg/dl (0.2-1.3); Total Protein 6.5 g/dl (6.3-8.2); eGFR 44.08
--- NOTE | 2024-01-22 16:32 | ED.GENMED ---
History of Present Illness
General
Chief Complaint: Rectal Bleeding
Source: patient and records
Exam Limitations: none
Time Seen by Provider: 01/22/24 16:06
Nursing documentation reviewed up to this point in time: agreed with
History of Present Illness
History of Present Illness:
88-year-old female presents emergency room complaining of rectal bleeding for the past several days, worse over the past 24 hours. She has a history of hemorrhoids and takes Eliquis. No aggravating or relieving factors, except she is having
diarrhea.
Past History
Past History
ED Past Medical History: Arrthythmia, Hypothyroidism and Other (Pituitary mass, constipation, adrenal insufficiency)
ED Past Surgical History: Cholecystectomy and Orthopedic
Social History
Tobacco: Non-smoker
Drug: None
Personal:
Living: with family
Employment: Retired
Family History
Family History: Other (No significant)
Review of Systems
Review of Systems
Allergies reviewed?: Yes
All Other Systems: Not applicable
Constitutional: Reports no symptoms
EENT: Reports no symptoms
Respiratory: Reports no symptoms
Cardiac: Reports no symptoms
ABD/GI: Reports diarrhea and bloody stools
: Reports no symptoms
Musculoskeletal: Reports no symptoms
Skin: Reports no symptoms
Neurological: Reports no symptoms
Endocrine: Reports no symptoms
Hematologic/Lymphatic: Reports no symptoms
Psychiatric: Reports no symptoms
Phy Exam
Physical Exam
Physical Exam:
Physical Exam
General: Afebrile
Neck: supple. no meningeal signs. normal posterior pharynx
Heart: s1/s2 regular rate and rhythm, no murmur. equal radial
pulses.
HEENT: Pupils equal round reactive to light, EOMI
Lungs: no acute respiratory distress. clear bilaterally
Abdomen: normal bowel sounds. not tender. no CVAT, rectal exam bright red blood, hemorrhoids seen, but no bleeding hemorrhoids noted
Neuro: alert and oriented. no focal neurological deficits cranial nerves II through XII intact
Skin: no rash
Psychiatric: well kept. interactive and cooperative
Extremities: no edema. no calf tenderness. negative homans. good distal pulses
Course
Orders/Labs/Results
Orders:
Orders
01/22/24 Breakfast
Regular
At Your Request: Full Participation
Does patient need a safe tray?: No
01/22/24 13:15
Complete Blood Count/With Diff Urgent
Comprehensive Metabolic Panel Urgent
01/22/24 17:43
Admit/Transfer Patient As Directed
Co-Sign Provider:
Level of Care: Inpatient admission
Assign to:: Medical/Surgical
Physician / Group: hunter BRANDON
Diagnosis: rectal bleed
Reason for Hospitalization: rectal bleed
Expected length of stay greater than two midnights?: Yes
ELOS- Estimated Length of Stay in days: 3
I certify the patient meets the requirements for IP care: Yes
01/22/24 17:44
PRN Pain Medication Management As Directed
May give lesser potent ordered pain med per pt: Yes
preference::
Protocol:: Medication orders for pain may be administered in a
manner that supports deferring to patient preference
when the pt is:
- Requesting an ordered lesser potent pain medication.
Least to most potent pain medications are defined
as: acetaminophen < NSAID < tramadol < opioids
(morphine, oxycodone, hydromorphone).
- Requesting a lesser dose of the same medication IF
ORDERED.
- Requesting a less intrusive route of administration
if both routes are prescribed by the provider (PO <
IV).
01/22/24 17:45
Code Status As Directed
Resuscitation Status: Full Code
01/22/24 18:24
ABO2 Urgent
BBK Wristband Number:
Associate notified that ABO2 has been ordered: [id number]
Date: 01/22/24
Time: 18:45
Corporate General Manager ID: [id number]
01/22/24 19:34
H&H Q8H
01/22/24 20:43
Acetaminophen [Tylenol] 650 mg PO Q4HPRN PRN
01/22/24 20:43
ColoRectal Surgery Consult Routine
Consulting Provider: Geoff Sevilla
Was physician already notified: Yes
VTE Contraindication Routine
VTE Mechanical Device Contraindication: DVT lower extremity
Pharmocologic Contraindication: Bleeding
Activity As Directed
Activity Level: As Tolerated
Vital Signs As Directed
Frequency: Per unit guidelines
01/22/24 22:00
Anusol Hc Suppository [Anusol Hc] 25 mg RECTAL HS
01/23/24 06:00
Complete Blood Count/No Diff IN AM
Levothyroxine [Synthroid] 50 mcg PO DAILY @ 0600
01/23/24 08:00
Desmopressin [Ddavp] 0.05 mg PO DAILY
Pantoprazole [Protonix] 40 mg PO DAILY
Prednisone [Deltasone] 10 mg PO DAILY
Abnormal Lab Results
01/22/24
13:15
RBC 3.86 L 10^6/uL
(4.20-5.40)
Hgb 11.8 L g/dL
(12.0-16.0)
MCHC 31.6 L g/dL
(33.0-37.0)
Abs Immat Gran (auto) 0.1 H 10^3/uL
(0-0.05)
Absolute Monos (auto) 1.1 H 10^3/uL
(0.1-0.6)
Immature Gran % 0.8 H %
(0-0.5)
Monocytes % 11.3 H %
(1.7-9.3)
BUN 26 H mg/dl
(7-17)
Creatinine 1.2 H mg/dL
(0.6-1.0)
01/22/24 13:15
01/22/24 13:15
Vital Signs
Initial and Last Documented VS:
Initial Vital Signs
Temp Pulse Resp BP Pulse Ox
98.0 F 86 16 133/75 94
01/22/24 13:06 01/22/24 13:06 01/22/24 13:06 01/22/24 13:06 01/22/24 13:06
Last Documented Vital Signs
Temp Pulse Resp BP Pulse Ox
97.8 F 54 18 167/77 98
01/22/24 21:11 01/22/24 21:11 01/22/24 21:11 01/22/24 21:11 01/22/24 21:45
MDM/Problems Addressed
Differential Diagnosis Includes:
Rectal bleeding, hemorrhoidal hemorrhage
MDM/Problems Addressed:
88-year-old female with rectal bleeding on Eliquis. Admit to hospitalist.
Chronic conditions affecting care: Arrhythmia
Acute Exacerbation and/or Progression of Chronic Illness: Arrhythmia
*Pulse Oximetry
Patient hypoxic: no
*Critical Care Note
Total Time (30-74mins, 75-104mins- exclusive of procedures): 30
comment:
Critical care statement: A total of 30 minutes of critical care time was provided for this patient. This includes management of unstable vital signs, evaluation of the patient at bedside, reviewing the patient's pertinent medical records, discussion
with consultants, review of old EKGs and review of pertinent medical records. This time with separate from time utilized to perform the aforementioned documented procedures
Patient Management
Social determinants of health affecting care: Living situation and Strong social support
Discussion with other providers: Hospitalist
Escalation/DeEscalation of care consider admission/obs:
Admit indicated
ED Attending Note
-
Portions of this chart may have been created with voice recognition software.� Occasional wrong word or��sound alike� substitutions may have occurred due to the inherent limitations of voice recognition software.
Discharge Plan
Departure
Patient Disposition: Admit
Date of Disposition: 01/22/24
Time of Disposition: 16:58
Admit to: Telemetry
Presentation/result/management discussed w/ accepting MD/DO: Hospitalist
Patient with high blood pressure during this ER visit?: No
Condition: Fair
Discharge Problem:
Acute lower gastrointestinal bleeding
Interventions
Interventions:
*Risk Screen - Suicide Last Done: 01/22/24 21:19
*General Assessment Last Done: 01/22/24 18:48
*Neglect/Abuse Screening Last Done: 01/22/24 20:27
*ED COVID-19 Vaccine History Last Done: 01/22/24 21:19
*Nursing Disposition Last Done: 01/22/24 20:27
AE-[facility] Assessment Last Done: 01/22/24 16:07
ED- Cardiac Assessment Last Done: 01/22/24 16:07
ED- Pulmonary Assessment Last Done: 01/22/24 16:07
Discharge Date and Time
Discharge Date/Time: 01/22/24 20:47
--- NOTE | 2024-01-22 17:14 | HPS.HSE ---
Addendum entered and electronically signed by Oleg Bell MD 01/22/24 18:22:
88-year-old female with a past medical history of DVT on Eliquis, recurrent hemorrhoidal bleeding status post banding September 2023, adrenal insufficiency, MRSA bacteremia, and chronic lower back pain presents with bright red per rectum for 4 days.
Will hold Eliquis, give Anusol suppository, consult colorectal surgery.
I have personally seen and examined the patient, and agree with the plan of care as documented by GOLDEN Chadwick.
Advance care planning discussed, patient is a full code.
All other issues as outlined by the advanced care practitioner.
Total time spent to see the patient on the floor, examine the patient, review data and lab results, discuss treatment plan with patient, nursing staff around 76 minutes.
Original Note:
Family Physician
-
Family Physician: * NONE
Chief Complaint
-
Rectal bleed
History of Present Illness
88-year-old female with past medical history for hyperlipidemia,GERD, IBS, Adderall insufficiency, hypothyroidism, DVT, hemorrhoids presented to us with worsening rectal bleeding since Thanks. Patient stated intermittent rectal bleed before
then. But since the it got worse. She took Colace yesterday, which made it worse. Stated some abdominal discomfort. Denied nausea vomiting, diarrhea. Patient follows with Dr. Sevilla as an outpatient for hemorrhoids. She had an
hemorrhoids banding done in September. 3 weeks after that she had and oil treatment. Patient denied any headache, dizziness, syncope. Patient denied fever, chills, chest pain, short of breath. Patient denied dysuria, hematuria
Medical History
Past Medical History
Past Medical History: Reports Other
Additional Past Medical History:
Hyperlipidemia
Osteoarthritis
GERD
Adderall insufficiency
Hypothyroidism
Past Surgical History: Reports Other
Additional Past Surgical History:
Teeth implant
Tubal ligation
Knee surgery
Cataract
Knee repair
Right breast lumpectomy
Mohs surgery on left side of face
Stye surgery of left eye
LASIK eye surgeries
Social History
Tobacco: Non-smoker
Alcohol: None
Drug: None
Personal: Single
Living: Alone
Family History
Family History: Not pertinent
Allergies / Home Medications
Allergies reflects when Allergies were last updated in [employer].
Home Medications with original date entered in [employer]
Allergy/Medication List:
Allergies
Allergy/AdvReac Type Severity Reaction Status Date / Time
garlic Allergy Unknown Verified 01/22/24 13:11
Penicillins Allergy stomach Verified 01/22/24 13:11
distention;
Tolerated
ampicillin
x 2weeks
strawberry Allergy Unknown Verified 01/22/24 13:12
Home Medications
cholecalciferol (vitamin D3) 50 mcg (2,000 unit) capsule (Vitamin D3) 2,000 unit PO DAILY Supplement 05/20/15
prednisone 5 mg tablet 10 mg PO DAILY Anti-Inflammatory 06/20/22
B-complex with vitamin C 1 cap PO DAILY Supplement 08/07/23
apixaban 5 mg tablet (Eliquis) 5 mg PO BID Blood Clot Prevention/Tx 08/07/23
inulin-sorbitol 2 gram chewable tablet 2 tab PO DAILY FIBER SUPPLEMENT 08/07/23
levothyroxine 50 mcg tablet 50 mcg PO DAILY Thyroid 08/07/23
desmopressin 0.1 mg tablet 0.05 mg (1/2 x 0.1 mg) PO DAILY ENDOCRINE DISORDER #0 tabs 08/15/23
Bifidobacterium infantis 4 mg capsule (Align) 4 mg PO DAILY 01/22/24
acetaminophen 500 mg tablet (Tylenol Extra Strength) 1,000 mg PO Q6HPRN PRN mild pain 01/22/24
docusate sodium 100 mg capsule (Colace) 100 mg PO DAILY 01/22/24
pantoprazole 40 mg tablet,delayed release 40 mg PO DAILY 01/22/24
Review of Systems
-
Constitutional: Reports No Symptoms
EENT: Reports No Symptoms
Respiratory: Reports No Symptoms
Cardiac: Reports No Symptoms
Abdomen/GI: Reports Bloody Stools
: Reports No Symptoms
Musculoskeletal: Reports No Symptoms
Skin: Reports No Symptoms
Neurological: Reports No Symptoms
Endocrine: Reports No Symptoms
Hematologic/Lymphatic: Reports No Symptoms
Psych: Reports No Symptoms
Physical Exam
Vital Signs
Vital Signs
Temp Pulse Resp BP Pulse Ox
98.0 F 86 16 117/63 97
01/22/24 13:06 01/22/24 13:06 01/22/24 13:06 01/22/24 16:00 01/22/24 16:15
Physical Exam
General: Well Developed, Well Nourished and No Apparent Distress
HEENT: NormoCephalic, Moist mucous membranes and Atraumatic
Respiratory: Clear
Cardiac: S1/S2 and Regular Rhythm; No Murmur or Rub
GI: Soft, Non Tender, Non Distended and Normal Bowel Sounds; No Organomegaly
Rectal: Deferred by Provider
Musculoskeletal: No Clubbing, No Cyanosis and No Edema
Skin: No Rash
Neuro: AO x 3 and Nonfocal/grossly intact
Psych: Calm
Laboratory Results
-
01/22/24 13:15
01/22/24 13:15
Laboratory Results
Total Bilirubin 0.6 mg/dl (0.2-1.3) 01/22/24 13:15
AST 32 U/L (14-36) 01/22/24 13:15
ALT 30 U/L (0-35) 01/22/24 13:15
Alkaline Phosphatase 51 U/L (38-126) 01/22/24 13:15
Data Reviewed
-
Lab Data: Labs Reviewed by me
Impression/Plan
-
# Rectal bleed on Eliquis
# History of bleeding hemorrhoids
-History of hemorrhoid banding's
-Hemoglobin stable at 11.8
-Continue trending hemoglobin
-Transfuse if hemoglobin less than 7
-PPI
-Anusol continued
-regular diet
-colorectal consulted
# Chronic kidney disease stage IIIa
-Creatinine 1.2
Continue to monitor
#Chronic lower back pain
S/p epidural spinal injection
# Adrenal insufficiency
#Pituitary macroadenoma
-Desmopressin continued
-Prednisone continued
#Hypothyroidism
Continue Synthroid
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
-IVC filter in place
-Hold Eliquis
# DVT prophylaxis
-Contraindicated
# CODE STATUS
-Full code
[2024-01-22 19:39] LABS: Hematocrit 35.1 % (37.0-47.0)
[2024-01-22] MEDS: ANUSOL HC 25 MG RECTAL (22:24)
--- NOTE | 2024-01-23 02:39 | PTCARENOTE ---
Pt received on unit at approximately 2100. Pt able to walk from stretcher to bed with rolling walker. VSS. No c/o pain. No rectal bleeding noted upon admission. Pt oriented to room, call licona within reach, pt able to make needs known.
[2024-01-23] MEDS: SYNTHROID 50 MCG PO (05:40)
[2024-01-23 06:41] VITALS: BP 145/78
[2024-01-23 08:51] LABS: Hematocrit 34.7 % (37.0-47.0); Hemoglobin 11.4 g/dL (12.0-16.0); Mean Corp Hgb Conc. 32.9 g/dL (33.0-37.0); Mean Corpuscular Volume 94.3 fL (81.0-99.0); Mean Platelet Volume 11.5 fL (7.4-10.4); Red Blood Cell Count 3.68 10^6/uL (4.20-5.40); Red Cell Dist. Width 14.1 % (11.5-14.5); White Blood Cell Count 7.3 10^3/uL (4.8-10.8)
--- NOTE | 2024-01-23 08:53 | W.PN.HOSP.TC ---
Today's Communication/Plan
-
see bold
Assessment / Plan
Assessment / Plan
HPI: 88-year-old female with a past medical history of DVT on Eliquis, recurrent hemorrhoidal bleeding status post banding September 2023, adrenal insufficiency, MRSA bacteremia, and chronic lower back pain presents with bright red per rectum for 4
days. Will hold Eliquis, give Anusol suppository, consult colorectal surgery.
#Hemorrhoidal bleeding exacerbated by Eliquis
Had hemorrhoidal banding in September [address] Sevilla
Last dose of Eliquis 01/22/2020 4 AM
Appreciate colorectal surgery input, plan for PPH procedure (procedure for prolapsing hemorrhoids) on 01/25/24
Hold Eliquis, continue Anusol suppository, trend hemoglobin
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
Status post IVC filter
Hold Eliquis
# Chronic kidney disease stage IIIa
Creatinine at baseline, monitor
#Chronic lower back pain
S/p epidural spinal injection
# Adrenal insufficiency
#Pituitary macroadenoma
Continue prednisone and desmopressin
#Hypothyroidism
Continue Synthroid
#Obesity due to excess calories
Affects all aspects of care
DVT prophylaxis�SCDs
Full code
Total time spent to see the patient on the floor, examine the patient, review data and lab results, discuss treatment plan with patient, nursing staff around 39 minutes.
Physical Exam
General: Obese, no acute distress
HEENT: Normocephalic, Atraumatic, EOMI, MMM
Respiratory: Clear to Auscultation bilaterally
Cardiac: Normal S1/S2, Regular Rate and Rhythm
GI: Soft, Nontender, Nondistended, Normal Bowel Sounds
Extremities: No Clubbing, Cyanosis, or Edema
Neuro: Nonfocal/Grossly Intact
Psych: Calm, Cooperative
Derm: No Visible lesions
Anticipated Discharge: > 48 hours
Subjective/Interval History
-
Date of Service: January 23, 2024
Rectal bleeding stopped. No fever, no vomiting. No chest pain, no shortness of breath.
Objective Data
-
Labs:
Laboratory Results
01/23/24
06:20
WBC 7.3
Hgb 11.4 L
Hct 34.7 L
Plt Count Pending
Vital Signs:
Vital Signs
Temp Pulse Resp BP Pulse Ox
97.5 F 52 18 145/78 96
01/23/24 06:41 01/23/24 06:41 01/23/24 06:41 01/23/24 06:41 01/23/24 06:41
I&O
01/22/24 01/23/24 01/24/24
06:59 06:59 06:59
Intake Total 120 / 120
Balance 120 / 120
[2024-01-23] MEDS: DELTASONE 10 MG PO (08:58)
[2024-01-23] MEDS: PROTONIX 40 MG PO (08:59)
[2024-01-23] MEDS: DDAVP 0.05 MG PO (08:59)
[2024-01-23 10:48] LABS: Platelet Count 147 10^3/uL (130-400)
--- NOTE | 2024-01-23 11:22 | CON.CRS ---
Consultation
-
Date/Time Consultation Requested: 01/22/2024, 20:43
Date/Time Consultation Performed: 01/23/2024, 08:45
Requesting Provider: Maylin Power
Performing Provider: Andrea Jean MD
Reason for Consultation: rectal bleeding
Medical History
-
Chief Complaint: rectal bleeding
History of Present Illness:
88-year-old female presents to the ER due to rectal bleeding. She is a known patient of Dr. Sevilla'alfa and was last seen in our office on 10/31/2023. At that time she underwent sclerotherapy of her hemorrhoids. Prior to that she had a rubber band
ligation of the left lateral internal hemorrhoid on 10/13/2023. The patient states she has been bleeding for the past 6 days and it was quite a large amount. She was going around 5 times a day. She tried Colace but that did not help. The bleeding
eventually stopped last night. She denies any pain, just describes the area more like a pressure sensation. Her last dose of Eliquis was yesterday morning. This is for DVTs. The patient also has an IVC filter in place.
The patient's last colonoscopy was [address] Cipriano Shelley. The report is not available for review.
In the ER her hemoglobin was 11.8 and is 11.4 this morning. Her vital signs have remained normal. She has not bled this morning. Given her rectal bleeding and known diagnosis of hemorrhoids, we have been consulted for further surgical opinion.
Past Medical History
Past Medical History: GERD, Hypercholesterolemia and Other (Osteoarthritis, adrenal insufficiency, hypothyroidism)
Past Surgical History: Gynecological (Tubal ligation) and Other (Teeth implants, knee surgery, cataract repair, right breast lumpectomy, Mohs surgery on left side of face, stye surgery of left eye, LASEK eye surgery)
Social History
Tobacco: Non-Smoker
Alcohol: None
Drug: None
Family History
Family History: Reviewed & Not Pertinent
Allergies / Home Medications
Allergy/AdvReac Type Severity Reaction Status Date / Time
garlic Allergy Unknown Verified 01/22/24 13:11
Penicillins Allergy stomach Verified 01/22/24 13:11
distention;
Tolerated
ampicillin
x 2weeks
strawberry Allergy Unknown Verified 01/22/24 13:12
�Medication �Instructions �Recorded �Confirmed �Type
cholecalciferol (vitamin D3) 50 2,000 unit PO DAILY Supplement 05/20/15 01/22/24 History
mcg (2,000 unit) capsule (Vitamin
D3)
prednisone 5 mg tablet 10 mg PO DAILY Anti-Inflammatory 06/20/22 01/22/24 History
B-complex with vitamin C 1 cap PO DAILY Supplement 08/07/23 01/22/24 History
apixaban 5 mg tablet (Eliquis) 5 mg PO BID Blood Clot 08/07/23 01/22/24 History
Prevention/Tx
inulin-sorbitol 2 gram chewable 2 tab PO DAILY FIBER SUPPLEMENT 08/07/23 01/22/24 History
tablet
levothyroxine 50 mcg tablet 50 mcg PO DAILY Thyroid 08/07/23 01/22/24 History
desmopressin 0.1 mg tablet 0.05 mg (1/2 x 0.1 mg) PO DAILY 08/15/23 01/22/24 Rx
ENDOCRINE DISORDER #0 tabs
Bifidobacterium infantis 4 mg 4 mg PO DAILY Supplement 01/22/24 01/22/24 History
capsule (Align)
acetaminophen 500 mg tablet 1,000 mg PO Q6HPRN PRN mild pain 01/22/24 01/22/24 History
(Tylenol Extra Strength)
docusate sodium 100 mg capsule 100 mg PO DAILY Gastrointestinal 01/22/24 01/22/24 History
(Colace) Issue
pantoprazole 40 mg tablet,delayed 40 mg PO DAILY Gastrointestinal 01/22/24 01/22/24 History
release Issue
Review of Systems
-
History Source: Patient
: Bleeding
A 10 point review of systems was completed, and was negative except as per HPI.
Physical Exam
Vital Signs
Temp 97.5 F 01/23/24 06:41
Pulse 52 01/23/24 06:41
Resp Rate 18 01/23/24 06:41
Blood pressure 145/78 01/23/24 06:41
SaO2 96 01/23/24 06:41
01/22/24 01/23/24 01/24/24
06:59 06:59 06:59
Actual Weight 71.724 kg
Body Mass Index (BMI) 33.1
Lab Results / Allergies
01/23/24 06:20
01/22/24 13:15
WBC 7.3 10^3/uL (4.8-10.8) 01/23/24 06:20
Hgb 11.4 g/dL (12.0-16.0) L 01/23/24 06:20
Hct 34.7 % (37.0-47.0) L 01/23/24 06:20
Plt Count 147 10^3/uL (130-400) D 01/23/24 06:20
Abs Immat Gran (auto) 0.1 10^3/uL (0-0.05) H 01/22/24 13:15
Neutrophils % 61.8 % (42.2-75.2) 01/22/24 13:15
Allergy/AdvReac Type Severity Reaction Status Date / Time
garlic Allergy Unknown Verified 01/22/24 13:11
Penicillins Allergy stomach Verified 01/22/24 13:11
distention;
Tolerated
ampicillin
x 2weeks
strawberry Allergy Unknown Verified 01/22/24 13:12
Physical Exam
General: Well Developed, Well Nourished and No Apparent Distress
GI: Soft, Non Tender and Non Distended
Rectal: Other (Prolapsing internal hemorrhoids, normal tone, no blood noted on finger)
Skin: Warm and Dry
Neuro: AO x 3
Data Reviewed
-
Labs: Labs Reviewed by me, Discussed with Physician and Discussed with Patient
Old Records: Reviewed
Assessment / Plan
-
Assessment: 88-year-old female, with known bleeding internal hemorrhoids, currently on Eliquis, presents to the ER for 6 days of rectal bleeding
Plan:
Discussed options with patient. Given her continued history of rectal bleeding, patient is interested in the option of surgery. She has been tentatively placed on the OR schedule with Dr. Sevilla on 01/25/2024 for procedure for prolapsing
hemorrhoids. She will need to remain off of her Eliquis until after surgery. Okay for a regular diet tonight and n.p.o. at midnight tomorrow. Patient is in agreement with above plan.
--- NOTE | 2024-01-23 14:19 | CM ---
Pt seen bedside. Initial assessment completed.
Pt lives alone at [facility]. Pt has her own apartment, no steps
Pt prev independent w/ walker. Has additional bars and shower chair in the bathroom for support
Pt was at [facility] for skilled rehab in the past
[facility] in the past
Address, point of contacts and insurances verified
PCP: Dr. Magaly Hill
Pharmacy: [facility]
PPH procedure to be done this week
Plan: Return to [facility] once medically stable
CM will cont to follow for d/c needs
[2024-01-23 15:13] VITALS: BP 107/72
[2024-01-23] MEDS: MIRALAX PO (17:12)
[2024-01-23] MEDS: ANUSOL HC 25 MG RECTAL (22:15)
[2024-01-24] MEDS: SYNTHROID 50 MCG PO (05:24)
[2024-01-24 07:47] VITALS: BP 143/88
[2024-01-24 07:59] LABS: Hematocrit 36.3 % (37.0-47.0); Hemoglobin 12.2 g/dL (12.0-16.0); Mean Corp Hgb Conc. 33.6 g/dL (33.0-37.0); Mean Corpuscular Hgb 31.4 pg (27.0-31.0); Mean Corpuscular Volume 93.3 fL (81.0-99.0); Red Blood Cell Count 3.89 10^6/uL (4.20-5.40); Red Cell Dist. Width 14.5 % (11.5-14.5); White Blood Cell Count 8.9 10^3/uL (4.8-10.8)
--- NOTE | 2024-01-24 08:44 | W.PN.HOSP.TC ---
Today's Communication/Plan
-
For PPH tomorrow
Assessment / Plan
Assessment / Plan
HPI: 88-year-old female with a past medical history of DVT on Eliquis, recurrent hemorrhoidal bleeding status post banding September 2023, adrenal insufficiency, MRSA bacteremia, and chronic lower back pain presents with bright red per rectum for 4
days. Will hold Eliquis, give Anusol suppository, consult colorectal surgery.
#Hemorrhoidal bleeding exacerbated by Eliquis
Had hemorrhoidal banding in September [address] Sevilla
Last dose of Eliquis 01/22/2020 4 AM
Appreciate colorectal surgery input, plan for PPH procedure (procedure for prolapsing hemorrhoids) on 01/25/24
Hold Eliquis, continue Anusol suppository, trend hemoglobin
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
Status post IVC filter
Hold Eliquis
# Chronic kidney disease stage IIIa
Creatinine at baseline, monitor
#Chronic lower back pain
S/p epidural spinal injection
# Adrenal insufficiency
#Pituitary macroadenoma
Continue prednisone and desmopressin (she has been getting it every day in the hospital per the way she takes it at home)
#Hypothyroidism
Continue Synthroid
#Obesity due to excess calories
Affects all aspects of care
DVT prophylaxis�SCDs
Full code
Total time spent to see the patient on the floor, examine the patient, review data and lab results, discuss treatment plan with patient, nursing staff around 45 minutes.
Physical Exam
General: Obese, no acute distress
HEENT: Normocephalic, Atraumatic, EOMI, MMM
Respiratory: Clear to Auscultation bilaterally
Cardiac: Normal S1/S2, Regular Rate and Rhythm
GI: Soft, Nontender, Nondistended, Normal Bowel Sounds
Extremities: No Clubbing, Cyanosis, or Edema
Neuro: Nonfocal/Grossly Intact
Psych: Calm, Cooperative
Derm: No Visible lesions
Anticipated Discharge: 24 - 48 hours
Subjective/Interval History
-
Date of Service: January 24, 2024
No recurrence of rectal bleeding. No fever, no vomiting. No chest pain, no shortness of breath.
Objective Data
-
Labs:
Laboratory Results
01/24/24 01/24/24
07:13 08:25
WBC 8.9
Hgb 12.2
Hct 36.3 L
Plt Count Pending
Sodium Cancelled Pending
Potassium Cancelled Pending
Chloride Cancelled Pending
Carbon Dioxide Cancelled Pending
BUN Cancelled Pending
Creatinine Cancelled Pending
Glucose Cancelled Pending
Calcium Cancelled Pending
Vital Signs:
Vital Signs
Temp Pulse Resp BP Pulse Ox
97.3 F 58 16 143/88 94
01/24/24 07:47 01/24/24 07:47 01/24/24 07:47 01/24/24 07:47 01/24/24 07:47
I&O
01/23/24 01/24/24 01/25/24
06:59 06:59 06:59
Intake Total 120 / 120 480 / 480
Balance 120 / 120 480 / 480
--- NOTE | 2024-01-24 08:46 | W.PN.CRS1 ---
Today's Communication / Plan
-
OR tomorrow
NPO at midnight
Assessment/Plan
-
Assessment: 88-year-old female, with known bleeding internal hemorrhoids, currently on Eliquis, presents to the ER for 6 days of rectal bleeding
Plan:
-On the OR schedule with Dr. Sevilla on 01/25/2024 for procedure for prolapsing hemorrhoids
-Remain off of her Eliquis until after surgery.
-NPO after midnight.
-TEDS/SCDS
-Pre-op labs ordered.
Subjective Data
Subjective Data
Date of Service: January 24, 2024
Patient states she feels well. She has no nausea or vomiting. She has mild spotting of blood still. She had two bowel movements yesterday without bleeding.
Objective Data
-
Vital Signs
Temp Pulse Resp BP Pulse Ox
97.3 F 58 16 143/88 94
01/24/24 07:47 01/24/24 07:47 01/24/24 07:47 01/24/24 07:47 01/24/24 07:47
Intake & Output
01/23/24 01/24/24 01/25/24
06:59 06:59 06:59
Intake Total 120 / 120 480 / 480
Balance 120 / 120 480 / 480
Intake:
Oral fluids 120 / 120 480 / 480
Other:
Number of approximated MODERATE 2 2
amounts of urine
Lab Results
01/24/24 07:13
Physical Exam
-
General: No Acute Distress and AOx3
Abdomen: Soft, Non Distended and Non Tender
Skin: Warm and Dry
[2024-01-24] MEDS: DDAVP PO (09:57)
[2024-01-24] MEDS: PROTONIX PO ×2 (09:58→10:17)
[2024-01-24] MEDS: DELTASONE 10 MG PO (09:58)
[2024-01-24] MEDS: MIRALAX 17 GRAMS PO (10:05)
[2024-01-24] MEDS: DDAVP 0.05 MG PO (10:48)
[2024-01-24 12:00] LABS: Blood Urea Nitrogen 23 mg/dl (7-17); Calcium 9.5 mg/dl (8.4-10.2); Carbon Dioxide 25 mmol/L (22-30); Chloride 108 mmol/L (98-107); Estimated Creatinine Clearance 34 ml/min; Glucose 120 mg/dl (70-99); Magnesium 2.6 mg/dl (1.6-2.3); Potassium 3.6 mmol/L (3.5-5.1); Sodium 146 mmol/L (135-145); eGFR 54.87
[2024-01-24] MEDS: METAMUCIL, KONSYL 1 PACKET PO (13:28)
--- NOTE | 2024-01-24 14:09 | CM ---
Chart reviewed and patient admitted from [facility], patient would benefit from PT/OT to assist with discharge planning needs.
Plan; PT/OT evaluation.
[2024-01-24 15:34] VITALS: BP 163/77
[2024-01-24] MEDS: COLACE 100 MG PO (17:34)
[2024-01-24] MEDS: ANUSOL HC 25 MG RECTAL (21:33)
[2024-01-24 23:52] VITALS: BP 127/72
[2024-01-25] MEDS: SYNTHROID 50 MCG PO (05:47)
[2024-01-25 07:30] VITALS: BP 147/96
--- NOTE | 2024-01-25 09:03 | W.PN.HOSP.TC ---
Today's Communication/Plan
-
For PPH procedure today
Assessment / Plan
Assessment / Plan
HPI: 88-year-old female with a past medical history of DVT on Eliquis, recurrent hemorrhoidal bleeding status post banding September 2023, adrenal insufficiency, MRSA bacteremia, and chronic lower back pain presents with bright red per rectum for 4
days. Will hold Eliquis, give Anusol suppository, consult colorectal surgery.
#Hemorrhoidal bleeding exacerbated by Eliquis
Had hemorrhoidal banding in September [address] Sevilla
Last dose of Eliquis 01/22/2020 4 AM
Appreciate colorectal surgery input, plan for PPH procedure (procedure for prolapsing hemorrhoids) on 01/25/24
Hold Eliquis, continue Anusol suppository, trend hemoglobin
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
Status post IVC filter
Hold Eliquis
# Chronic kidney disease stage IIIa
Creatinine at baseline, monitor
#Chronic lower back pain
S/p epidural spinal injection
# Adrenal insufficiency
#Pituitary macroadenoma
Continue prednisone and desmopressin (she has been getting it every day in the hospital per the way she takes it at home)
#Hypothyroidism
Continue Synthroid
#Obesity due to excess calories
Affects all aspects of care
DVT prophylaxis�SCDs
Full code
Total time spent to see the patient on the floor, examine the patient, review data and lab results, discuss treatment plan with patient, nursing staff around 40 minutes.
Physical Exam
General: Obese, no acute distress
HEENT: Normocephalic, Atraumatic, EOMI, MMM
Respiratory: Clear to Auscultation bilaterally
Cardiac: Normal S1/S2, Regular Rate and Rhythm
GI: Soft, Nontender, Nondistended, Normal Bowel Sounds
Extremities: No Clubbing, Cyanosis, or Edema
Neuro: Nonfocal/Grossly Intact
Psych: Calm, Cooperative
Derm: No Visible lesions
Anticipated Discharge: Within 24 hours
Subjective/Interval History
-
Date of Service: January 25, 2024
No rectal bleeding. No CP/SOB. No fever, no vomiting.
Objective Data
-
Labs:
Laboratory Results
01/25/24
08:27
WBC Pending
Hgb Pending
Hct Pending
Plt Count Pending
PT Pending
INR Pending
APTT Pending
Sodium Pending
Potassium Pending
Chloride Pending
Carbon Dioxide Pending
BUN Pending
Creatinine Pending
Glucose Pending
Calcium Pending
Vital Signs:
Vital Signs
Temp Pulse Resp BP Pulse Ox
98.4 F 78 20 147/96 95
01/25/24 07:30 01/25/24 07:30 01/25/24 07:30 01/25/24 07:30 01/25/24 07:30
I&O
01/24/24 01/25/24 01/26/24
06:59 06:59 06:59
Intake Total 480 / 480 840 / 840
Balance 480 / 480 840 / 840
[2024-01-25 09:07] LABS: APTT 23.6 Sec (23.4-35.0); INR 0.89; PT 12.5 Sec (11.4-14.6)
[2024-01-25] MEDS: PROTONIX PO (09:12)
[2024-01-25] MEDS: METAMUCIL, KONSYL PO (09:12)
[2024-01-25] MEDS: DDAVP 0.05 MG PO (09:13)
[2024-01-25] MEDS: DELTASONE 10 MG PO (09:13)
[2024-01-25] MEDS: COLACE 100 MG PO (09:13)
[2024-01-25 09:51] LABS: Blood Urea Nitrogen 26 mg/dl (7-17); Calcium 9.5 mg/dl (8.4-10.2); Carbon Dioxide 29 mmol/L (22-30); Chloride 110 mmol/L (98-107); Estimated Creatinine Clearance 31 ml/min; Glucose 80 mg/dl (70-99); Sodium 149 mmol/L (135-145); eGFR 48.94
[2024-01-25 10:39] LABS: Hematocrit 39.5 % (37.0-47.0); Mean Corp Hgb Conc. 30.4 g/dL (33.0-37.0); Mean Corpuscular Hgb 30.2 pg (27.0-31.0); Mean Corpuscular Volume 99.5 fL (81.0-99.0); Mean Platelet Volume 10.6 fL (7.4-10.4); Platelet Count 189 10^3/uL (130-400); Red Blood Cell Count 3.97 10^6/uL (4.20-5.40); Red Cell Dist. Width 14.2 % (11.5-14.5); White Blood Cell Count 9.2 10^3/uL (4.8-10.8)
--- NOTE | 2024-01-25 13:22 | CM ---
Chart reviewed, patient will need PT/OT evaluations to assist with discharge planning needs for patient.
Plan; To follow with patient progress.
[2024-01-25 17:37] VITALS: BP 105/67
--- NOTE | 2024-01-25 17:40 | W.IMMPOSTOP ---
Surgical Immed Post Op Note
-
Primary Surgeon: Mayito Sevilla MD
Egg Smeller: MIRANDA Deluna
Pre-op Diagnosis: Bleeding hemorrhoids
Post-op Diagnosis: Same
Procedure Performed: Stapled hemorrhoidectomy (PPH) and excision of residual hemorrhoid (left lateral)
Anesthesia Type: Saddle block
Specimen / Cultures: none
Estimated Blood Loss: 9cc
Complications: None
Operative Findings: Markedly enlarged hemorrhoids in all quadrants.
Patient's son updated.
[2024-01-25 17:45] VITALS: BP 130/63
[2024-01-25 18:00] VITALS: BP 159/71
[2024-01-25] MEDS: DEMEROL 12.5 MG IV (18:01)
[2024-01-25 18:15] VITALS: BP 163/77
[2024-01-25 23:23] VITALS: BP 111/69
[2024-01-26] MEDS: SYNTHROID 50 MCG PO (05:40)
[2024-01-26 07:00] VITALS: BP 138/77
[2024-01-26] MEDS: DELTASONE 10 MG PO (08:21)
[2024-01-26] MEDS: PROTONIX 40 MG PO (08:22)
[2024-01-26] MEDS: METAMUCIL, KONSYL 1 PACKET PO (08:22)
[2024-01-26] MEDS: DDAVP 0.05 MG PO (08:22)
[2024-01-26] MEDS: COLACE 100 MG PO (08:23)
[2024-01-26 08:31] LABS: Hemoglobin 12.7 g/dL (12.0-16.0); Mean Corp Hgb Conc. 31.8 g/dL (33.0-37.0); Mean Corpuscular Hgb 31.4 pg (27.0-31.0); Mean Corpuscular Volume 98.8 fL (81.0-99.0); Mean Platelet Volume 10.8 fL (7.4-10.4); Platelet Count 218 10^3/uL (130-400); Red Blood Cell Count 4.05 10^6/uL (4.20-5.40); Red Cell Dist. Width 14.6 % (11.5-14.5); White Blood Cell Count 15.4 10^3/uL (4.8-10.8)
[2024-01-26 08:53] LABS: Blood Urea Nitrogen 21 mg/dl (7-17); Calcium 9.2 mg/dl (8.4-10.2); Carbon Dioxide 26 mmol/L (22-30); Chloride 105 mmol/L (98-107); Estimated Creatinine Clearance 38 ml/min; Glucose 106 mg/dl (70-99); Potassium 4.4 mmol/L (3.5-5.1); Sodium 142 mmol/L (135-145); eGFR > 60.00
--- NOTE | 2024-01-26 08:55 | W.PN.HOSP.TC ---
Today's Communication/Plan
-
Cleared by colorectal surgery for discharge today
Assessment / Plan
Assessment / Plan
HPI: 88-year-old female with a past medical history of DVT on Eliquis, recurrent hemorrhoidal bleeding status post banding September 2023, adrenal insufficiency, MRSA bacteremia, and chronic lower back pain presents with bright red per rectum for 4
days. Will hold Eliquis, give Anusol suppository, consult colorectal surgery.
#Hemorrhoidal bleeding exacerbated by Eliquis
Had hemorrhoidal banding in September [address] Sevilla
Last dose of Eliquis 01/22/2020 4 AM
Appreciate colorectal surgery input, s/p PPH procedure (procedure for prolapsing hemorrhoids) on 01/25/24
Cleared by colorectal rectal surgery for discharge today
Can resume Eliquis when 01/27/2024
Continue sitz bath, stool softeners
Follow-up with colorectal surgery in the office in 2-3 weeks
#Hypernatremia
Resolved
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
Status post IVC filter
May resume Eliquis on 01/26
# Chronic kidney disease stage IIIa
Creatinine at baseline, monitor
#Chronic lower back pain
S/p epidural spinal injection
# Adrenal insufficiency
#Pituitary macroadenoma
Continue prednisone and desmopressin (she has been getting it every day in the hospital per the way she takes it at home)
#Hypothyroidism
Continue Synthroid
#Obesity due to excess calories
Affects all aspects of care
DVT prophylaxis�SCDs
Full code
Physical Exam
General: Obese, no acute distress
HEENT: Normocephalic, Atraumatic, EOMI, MMM
Respiratory: Clear to Auscultation bilaterally
Cardiac: Normal S1/S2, Regular Rate and Rhythm
GI: Soft, Nontender, Nondistended, Normal Bowel Sounds
Extremities: No Clubbing, Cyanosis, or Edema
Neuro: Nonfocal/Grossly Intact
Psych: Calm, Cooperative
Derm: No Visible lesions
Anticipated Discharge: Today
Subjective/Interval History
-
Date of Service: January 26, 2024
Patient had a bowel movement, with blood when she wiped on the toilet paper. No fever, no vomiting. No abdominal pain. She feels well, and is eager for discharge today.
Objective Data
-
Labs:
Laboratory Results
01/26/24
07:43
WBC 15.4 H
Hgb 12.7
Hct 40.0
Plt Count 218
Sodium 142
Potassium 4.4
Chloride 105
Carbon Dioxide 26
BUN 21 H
Creatinine 0.9
Glucose 106 H
Calcium 9.2
Vital Signs:
Vital Signs
Temp Pulse Resp BP Pulse Ox
98.9 F 72 20 111/69 95
01/25/24 23:23 01/25/24 23:23 01/25/24 23:23 01/25/24 23:23 01/25/24 23:23
I&O
01/25/24 01/26/24 01/27/24
06:59 06:59 06:59
Intake Total 840 / 840 0 / 0
Balance 840 / 840 0 / 0
--- NOTE | 2024-01-26 09:03 | PN.CDI ---
CDI
- -
CDI:
Physician Documentation Request
Admit Date: 01/22/24 18:09
Dear Doctor Do,
Please review the following and provide your response in the progress notes.
Clinical Indicators:
Pt admitted with bleeding hemorrhoids now s/p Hemorrhoidectomy
Sodium levels are as below/ Pt was on IV NSS
01/24/24 01/25/24
10:55 08:27
Sodium 146 H 149 H
Based on the above, could you clarify in the progress notes, the appropriate diagnosis, if significant, that supports the above abnormalities and additional evaluation, monitoring and/or treatment rendered:
Hypernatremia
Abnormal lab value only
Other
Use of terms such as suspected, likely, concern for, or probable (associated with a specific diagnosis that is being evaluated, monitored, or treated as if it exists) are acceptable and can be coded in the inpatient setting, when documented at the
time of discharge.
Thank you,
Nayeli Hill RN
CDI Specialist
[place] [facility]
Please use your independent medical judgment in providing your response.
--- NOTE | 2024-01-26 09:04 | W.PN.CRS1 ---
Today's Communication / Plan
-
wound care
pain control
f/u in the office in [address] Sevilla
resume Eliquis tomorrow
Assessment/Plan
-
Assessment: 88-year-old female, with known bleeding internal hemorrhoids, currently on Eliquis, presents to the ER for 6 days of rectal bleeding
POD#1 Stapled hemorrhoidectomy (PPH) and excision of residual hemorrhoid (left lateral)
Plan:
-Continue regular diet
-Sitz baths twice a day for a week
-Tylenol and dibucaine ointment as needed for pain
-Daily fiber supplement
-Stool softener as needed
-Follow up with Dr. Sevilla in the office in 2 weeks for a post op appointment
-Resume Eliquis tomorrow
-Okay for d/c from our perspective
Subjective Data
Procedure
01/25/24- Stapled hemorrhoidectomy (PPH) and excision of residual hemorrhoid (left lateral)
Subjective Data
Date of Service: January 26, 2024
Patient states she feels well today. She has spotting of blood. She denies pain. She has been tolerating a diet.
Objective Data
-
Vital Signs
Temp Pulse Resp BP Pulse Ox
98.9 F 72 20 111/69 95
01/25/24 23:23 01/25/24 23:23 01/25/24 23:23 01/25/24 23:23 01/25/24 23:23
Intake & Output
01/25/24 01/26/24 01/27/24
06:59 06:59 06:59
Intake Total 840 / 840 0 / 0
Balance 840 / 840 0 / 0
Intake:
Oral fluids 840 / 840 0 / 0
Other:
Number of approximated MODERATE 3 3
amounts of urine
Number of unmeasured liquid
stools
Rectum 3
Lab Results
01/26/24 07:43
01/26/24 07:43
Physical Exam
-
General: No Acute Distress and AOx3
Abdomen: Soft, Non Distended and Non Tender
Skin: Warm and Dry
[2024-01-26 11:00] VITALS: BP 141/89
--- NOTE | 2024-01-26 12:56 | CM ---
Addendum entered by Yolette Guerra 01/26/24 15:53:
Son to transport patient to home.
Original Note:
Chart reviewed and patient has been cleared for discharge today, home with [facility] visiting nurses. Referral sent to [facility].
[facility]
[phone]

Plan; Home with [facility].
[2024-01-26 15:00] VITALS: BP 139/86
--- NOTE | 2024-01-26 18:10 | W.DCSUMMARY ---
Discharge Summary
Discharge Data
Date of Admission: 01/22/24
Date of Discharge: 01/26/24
-
Pending Results: No
Hospital Course
Discharge diagnosis:
Hemorrhoidal bleeding exacerbated by Eliquis
Leukocytosis, likely reactive
Hypernatremia
History of left lower extremity deep vein thrombosis on Eliquis, status post inferior vena cava filter
Stage IIIa chronic kidney disease
Chronic lower back pain
Adrenal insufficiency
Pituitary macroadenoma
Hypothyroidism
Obesity due to excess calories
Consults: Colorectal surgery
Procedures:
01/25/2024
Stapled hemorrhoidectomy (PPH) and excision of left residual left lateral internal hemorrhoid
Hospital course:
88-year-old female with a past medical history of left lower extremity DVT status post IVC filter on Eliquis, adrenal insufficiency, chronic kidney disease, chronic lower back pain, hypothyroidism, and obesity was admitted for hemorrhoidal bleeding
exacerbated by Eliquis. Patient's Eliquis was held. She was seen in conjunction with colorectal surgery. She underwent stapled hemorrhoidectomy and excision of left residual left lateral internal hemorrhoid. She did well postoperatively.
Patient's hemoglobin was monitored, was normal on the day of discharge. She is medically stable and cleared by colorectal surgery for discharge. She can resume her Eliquis on 01/27/2024. She needs to follow-up with her primary care doctor in 1
week, and colorectal surgery in the office in 2-3 weeks.
Disposition: Home with home care
Discharge planning: Required 39 minutes
Discharge Plan
-
Patient Disposition: Home (Routine Discharge)
Discharge Diagnosis/Procedures: Rectal bleeding exacerbated by Eliquis, hemorrhoids status post stapled hemorrhoidectomy (PPH) and excision of left
residual left lateral internal hemorrhoid, history of left lower extremity deep vein thrombosis, adrenal insufficiency
Condition: Fair
Diet: Regular
Additional Diets: Daily fiber supplement
Activity: As tolerated
Driving Restrictions: No driving for 24 hours
Bathing Restrictions: None
Wound Care: Sitz baths twice a day (10 minutes at a time at least) with warm water for one week.
Tylenol as needed for pain. A prescription for a numbing cream (dibucaine) has been sent to your pharmacy.
Stool softener as needed. Recommend a daily fiber supplement.
Spotting is normal. Please call if you have severe bleeding, please call our office or go to the ER.
*Restart your Eliquis tomorrow morning*
Instructions: Psyllium, How to Do a Sitz Bath
Referrals:
Geoff Sevilla MD [Active] - in two weeks
Magaly Hill DO [Family Provider] - in one week
Prescriptions:
New
docusate sodium 100 mg Capsule
100 mg PO DAILY Qty: 60 0RF
Continued
cholecalciferol (vitamin D3) [Vitamin D3] 2,000 UNIT capsule
2,000 unit PO DAILY
prednisone 5 mg tablet
10 mg PO DAILY
B-complex with vitamin C Capsule
1 cap PO DAILY
inulin-sorbitol 2 gram Tablet,Chewable
2 tab PO DAILY
levothyroxine 50 mcg tablet
50 mcg PO DAILY
desmopressin 0.1 mg tablet
0.05 mg PO DAILY Qty: 0 0RF
Rx Instructions:
Skip every 3rd dose.
For example, if taken Mon then skip Mon and resume
acetaminophen [Tylenol Extra Strength] 500 mg Tablet
1,000 mg PO Q6HPRN PRN (Reason: mild pain)
pantoprazole 40 mg Tablet,Delayed Release (Dr/Ec)
40 mg PO DAILY
docusate sodium [Colace] 100 mg Capsule
100 mg PO DAILY
Align 4 mg Capsule
4 mg PO DAILY
Held
Eliquis 5 mg Tablet
5 mg PO BID
Hold Instructions: Continue hold Eliquis due to bleeding hemorrhoids. Follow up with GI or primary care provider to determine when safe to resume
Patient Comments:
08/07/23: patient states it was temporarily stopped on the
Discharge Orders:
Discharge Patient (As Directed); Ordered 01/26/24
Ordered By: Oleg Bell
Discharge Date and Time
Discharge Date/Time: 01/26/24 16:58
Print Language: ANDORRAN
--- NOTE | 2024-01-29 09:20 | W.PN.UPDATE ---
Update Note
Progress Note Update
Dibucaine ointment was recommended by CRS for hemorrhoidal discomfort during adx and was not tx at the time of DC. Rx sent ot her pharmacy.
== END 2024-01-26 16:58 | disposition home health service (06) | DRG 348 ==
LOC: 4 WEST ACU 18:09
PROVIDERS: Emergency Medicine; Physician Assistant; Registered Nurse; Surgery; ADMITTING PHYSICIAN Family Medicine; EMERGENCY PHYSICIAN Emergency Medicine; FAMILY PHYSICIAN Family Medicine; OTHER PHYSICIAN Surgery
PROC: 0DJD8ZZ Inspection of Lower Intestinal Tract, Via Natural or Artificial Opening Endoscopic (ICD-10-PCS; 2024-01-25)
PROC: 06BY0ZC Excision of Hemorrhoidal Plexus, Open Approach (ICD-10-PCS; 2024-01-25)
DX: K64.8 Other hemorrhoids (principal); D68.32 Hemorrhagic disorder due to extrinsic circulating anticoagulants; E27.40 Unspecified adrenocortical insufficiency; E87.0 Hyperosmolality and hypernatremia; D35.2 Benign neoplasm of pituitary gland; D72.829 Elevated white blood cell count, unspecified; E03.9 Hypothyroidism, unspecified; E78.00 Pure hypercholesterolemia, unspecified; G89.29 Other chronic pain; K21.9 Gastro-esophageal reflux disease without esophagitis; K58.0 Irritable bowel syndrome with diarrhea; N18.31 Chronic kidney disease, stage 3a; T45.515A Adverse effect of anticoagulants, initial encounter; K64.4 Residual hemorrhoidal skin tags; E66.09 Other obesity due to excess calories; Z68.33 Body mass index [BMI] 33.0-33.9, adult; Z86.718 Personal history of other venous thrombosis and embolism; Z79.890 Hormone replacement therapy; Z79.01 Long term (current) use of anticoagulants; Z88.0 Allergy status to penicillin; Z95.828 Presence of other vascular implants and grafts
CPT/HCPCS: 80048; 80053; 83735; 85014; 85018; 85025; 85027; 85610; 85730; 86850; 86900; 86901; 93005; 99291; C1776

== ENCOUNTER 2024-01-30 04:35 | Inpatient (IN) | payer MEDICARE, OTHER, SELFPAY ==
[2024-01-30] VITALS (35 sets, daily range): BP systolic 76–157; BP diastolic 55–113; BMI 32.2; BMI 33.0
--- NOTE | 2024-01-30 02:42 | ED.GENMED ---
Addendum entered and electronically signed by Candido Brothers, 01/30/24 07:28:
30 minutes critical care time
CRITICAL CARE STATEMENT: A total of 30 minutes of critical care time was provided for this patient. This includes management of unstable vital signs, evaluation of the patient at bedside, reviewing the patient's pertinent medical records discussion
with EMS providers and patient's family in addition to discussion with consultants, review of old EKGs and review of pertinent medical records. This time with separate from time utilized to perform the aforementioned documented procedures
Addendum entered and electronically signed by Candido Brothers, 01/30/24 06:42:
Repeat H&H noted blood pressure still soft consented for blood, consideration for reversal of her anticoagulation hospitalist colorectal surgeon updated
Original Note:
History of Present Illness
<MAURILIO Flanagan - Last Filed: 01/30/24 02:59>
General
Chief Complaint: Rectal Bleeding
Source: patient
Exam Limitations: none
Time Seen by Provider: 01/30/24 02:33
Nursing documentation reviewed up to this point in time: agreed with
History of Present Illness
History of Present Illness:
Pt is an 88yo F with PMH of DVT, hemorrhoids, CKD stage 3a, and hypothyroidism who presents to the ED with rectal bleeding x 40 minutes. She states she was sitting on the toilet because she felt like she needed to pass a BM when she noticed a large
amount of blood and blood clots in the toilet. She states she has hemorrhoids and had surgery on , 01/24 for repair. She states she is on Eliquis for hx of DVT but stopped on 01/21 and resumed on 01/26. She notes she still feels like she is
passing something from her rectum and has an associated fullness feeling in her pelvis. Pt denies fever, chills, CISNEROS, chest pain, SOB, abdominal pain, pelvic pain.
If applicable-neuro sx onset
Onset of symptoms known: Yes
Date of onset of symptoms: 01/30/24
Time of onset of symptoms: 02:00
Past History
<ST MashaND - Last Filed: 01/30/24 02:59>
Past History
ED Past Medical History: Arrthythmia, Hypothyroidism and Other (Pituitary mass, constipation, adrenal insufficiency)
ED Past Surgical History: Cholecystectomy and Orthopedic
Social History
Tobacco: Non-smoker
Drug: None
Personal:
Living: with family
Employment: Retired
Family History
Family History: Other (No significant)
Review of Systems
<MAURILIO Flanagan - Last Filed: 01/30/24 02:59>
Review of Systems
Allergies reviewed?: Yes
Constitutional: Denies fever, fatigue or chills
EENT: Reports no symptoms
Respiratory: Denies cough or trouble breathing
Cardiac: Denies chest pain or palpitations
ABD/GI: Reports other (BRBPR); Denies abdominal pain, nausea or vomiting
: Denies dysuria or flank pain
Neurological: Denies dizzy or headache
Hematologic/Lymphatic: Reports bleeding (BRBPR)
Phy Exam
<ST MashaND - Last Filed: 01/30/24 02:59>
General Physical Exam
General Presentation: well appearing and no apparent distress
General age: appears stated age
General Skin: warm and dry
General Habitus: normal and elderly
General Mental: alert
General Hydration: appears well hydrated
Cardiovascular Exam
Cardiovascular Exam: regular rate/rhythm and no murmur
Gastrointestinal Exam
Gastrointestinal Exam: non tender and soft
Rectal Exam: other (active BRBPR, multiple clots upon first examination)
Neurological Exam
Neurological Exam: alert, oriented x3 and speech normal
<Candido Brothers DO - Last Filed: 01/30/24 04:30>
Physical Exam
Physical Exam:
Physical Exam
General: no apparent distress, not acutely ill
Neck: No pallor
Heart: s1/s2 regular rate and rhythm, no murmur. equal radial pulses.
Lungs: no acute respiratory distress. clear bilaterally
Abdomen: Soft, some bruising around the external buttocks, passing a maroon clot with a trickle of bright red blood
Neuro: alert and oriented. no focal neurological deficits
Skin: no rash
Psychiatric: well kept. interactive and cooperative
Extremities: no edema.
Course
<MAURILIO Flanagan - Last Filed: 01/30/24 02:59>
Orders/Labs/Results
Orders:
Orders
01/30/24 03:04
Complete Blood Count/With Diff Urgent
Comprehensive Metabolic Panel Urgent
01/30/24 03:53
0.9% Sodium Chloride 1000 ml [Nss] 1,000 ml IV BOLUS
01/30/24 04:08
Admit/Transfer Patient As Directed
Co-Sign Provider:
Level of Care: Inpatient admission
Assign to:: Telemetry
Physician / Group: hospitalist
Diagnosis: rectal bleeding
Reason for Telemetry: Other
Other Reason for Telemetry: rectal bleeding
Date to Stop Telemetry: 02/01/24
Time to Stop Telemetry: 11:00
Reason for Hospitalization: rectal bleeding
Expected length of stay greater than two midnights?: Yes
ELOS- Estimated Length of Stay in days: 2
I certify the patient meets the requirements for IP care: Yes
PRN Pain Medication Management As Directed
May give lesser potent ordered pain med per pt: Yes
preference::
Protocol:: Medication orders for pain may be administered in a
manner that supports deferring to patient preference
when the pt is:
- Requesting an ordered lesser potent pain medication.
Least to most potent pain medications are defined
as: acetaminophen < NSAID < tramadol < opioids
(morphine, oxycodone, hydromorphone).
- Requesting a lesser dose of the same medication IF
ORDERED.
- Requesting a less intrusive route of administration
if both routes are prescribed by the provider (PO <
IV).
01/30/24 04:10
Code Status As Directed
Resuscitation Status: Full Code
02/01/24 11:00
DC Protocol for Telemetry ONCE
Abnormal Lab Results
01/30/24
03:04
RBC 3.33 L 10^6/uL
(4.20-5.40)
Hgb 10.3 L g/dL
(12.0-16.0)
Hct 33.1 L %
(37.0-47.0)
MCV 99.4 H fL
(81.0-99.0)
MCHC 31.1 L g/dL
(33.0-37.0)
Abs Immat Gran (auto) 0.1 H 10^3/uL
(0-0.05)
Absolute Monos (auto) 1.1 H 10^3/uL
(0.1-0.6)
Immature Gran % 1.4 H %
(0-0.5)
Monocytes % 11.8 H %
(1.7-9.3)
Chloride 111 H mmol/L
(98-107)
BUN 18 H mg/dl
(7-17)
Creatinine 1.1 H mg/dL
(0.6-1.0)
Glucose 109 H mg/dl
(70-99)
AST 40 H U/L
(14-36)
ALT 44 H U/L
(0-35)
Total Protein 5.8 L g/dl
(6.3-8.2)
01/30/24 03:04
01/30/24 03:04
Vital Signs
Initial and Last Documented VS:
Initial Vital Signs
BP
124/60
01/30/24 02:29
Last Documented Vital Signs
Temp Pulse Resp BP Pulse Ox
98.7 F 70 11 107/61 98
01/30/24 02:31 01/30/24 04:00 01/30/24 04:00 01/30/24 04:00 01/30/24 04:00
<Candido Brothers, DO - Last Filed: 01/30/24 04:30>
Orders/Labs/Results
Orders:
Orders
01/30/24 03:04
Complete Blood Count/With Diff Urgent
Comprehensive Metabolic Panel Urgent
01/30/24 03:53
0.9% Sodium Chloride 1000 ml [Nss] 1,000 ml IV BOLUS
01/30/24 04:08
Admit/Transfer Patient As Directed
Co-Sign Provider:
Level of Care: Inpatient admission
Assign to:: Telemetry
Physician / Group: hospitalist
Diagnosis: rectal bleeding
Reason for Telemetry: Other
Other Reason for Telemetry: rectal bleeding
Date to Stop Telemetry: 02/01/24
Time to Stop Telemetry: 11:00
Reason for Hospitalization: rectal bleeding
Expected length of stay greater than two midnights?: Yes
ELOS- Estimated Length of Stay in days: 2
I certify the patient meets the requirements for IP care: Yes
PRN Pain Medication Management As Directed
May give lesser potent ordered pain med per pt: Yes
preference::
Protocol:: Medication orders for pain may be administered in a
manner that supports deferring to patient preference
when the pt is:
- Requesting an ordered lesser potent pain medication.
Least to most potent pain medications are defined
as: acetaminophen < NSAID < tramadol < opioids
(morphine, oxycodone, hydromorphone).
- Requesting a lesser dose of the same medication IF
ORDERED.
- Requesting a less intrusive route of administration
if both routes are prescribed by the provider (PO <
IV).
01/30/24 04:10
Code Status As Directed
Resuscitation Status: Full Code
02/01/24 11:00
DC Protocol for Telemetry ONCE
Abnormal Lab Results
01/30/24
03:04
RBC 3.33 L 10^6/uL
(4.20-5.40)
Hgb 10.3 L g/dL
(12.0-16.0)
Hct 33.1 L %
(37.0-47.0)
MCV 99.4 H fL
(81.0-99.0)
MCHC 31.1 L g/dL
(33.0-37.0)
Abs Immat Gran (auto) 0.1 H 10^3/uL
(0-0.05)
Absolute Monos (auto) 1.1 H 10^3/uL
(0.1-0.6)
Immature Gran % 1.4 H %
(0-0.5)
Monocytes % 11.8 H %
(1.7-9.3)
Chloride 111 H mmol/L
(98-107)
BUN 18 H mg/dl
(7-17)
Creatinine 1.1 H mg/dL
(0.6-1.0)
Glucose 109 H mg/dl
(70-99)
AST 40 H U/L
(14-36)
ALT 44 H U/L
(0-35)
Total Protein 5.8 L g/dl
(6.3-8.2)
01/30/24 03:04
01/30/24 03:04
Vital Signs
Initial and Last Documented VS:
Initial Vital Signs
BP
124/60
01/30/24 02:29
Last Documented Vital Signs
Temp Pulse Resp BP Pulse Ox
98.7 F 70 11 107/61 98
01/30/24 02:31 01/30/24 04:00 01/30/24 04:00 01/30/24 04:00 01/30/24 04:00
<MAURILIO Flanagan - Last Filed: 01/30/24 02:59>
*Critical Care Note
Total Time (30-74mins, 75-104mins- exclusive of procedures): Not Applicable
<Candido Brothers DO - Last Filed: 01/30/24 04:30>
*Pulse Oximetry
Patient hypoxic: no
*Cartography Professor Interpretation
Rate: normal
Interpretation: normal
Heart Rate: 78
Rhythm: sinus
<Candido Brothers DO - Last Filed: 01/30/24 04:30>
Update Note
Update Note:
Update prior records reviewed she is on Eliquis for DVT, presents with painless rectal bleeding had a solid bowel yesterday has been back on her Eliquis for a few days had been held underwent hemorrhoid removal by Dr. Sevilla, moderate bleeding here,
will keep n.p.o., hold her Eliquis likely admit
ED Attending Note
<MAURILIO Flanagan - Last Filed: 01/30/24 02:59>
-
Portions of this chart may have been created with voice recognition software.� Occasional wrong word or��sound alike� substitutions may have occurred due to the inherent limitations of voice recognition software.
Discharge Plan
Departure
Patient Disposition: Admit
Date of Disposition: 01/30/24
Time of Disposition: 03:24
Admit to: Med/Surg
Presentation/result/management discussed w/ accepting /: Hospitalist
Condition: Fair
Discharge Problem:
Rectal bleeding
Prescriptions:
No Action
cholecalciferol (vitamin D3) [Vitamin D3] 2,000 UNIT capsule
2,000 unit PO DAILY
prednisone 5 mg tablet
10 mg PO DAILY
B-complex with vitamin C Capsule
1 cap PO DAILY
inulin-sorbitol 2 gram Tablet,Chewable
2 tab PO DAILY
Eliquis 5 mg Tablet
5 mg PO BID
Patient Comments:
08/07/23: patient states it was temporarily stopped on the
levothyroxine 50 mcg tablet
50 mcg PO DAILY
desmopressin 0.1 mg tablet
0.05 mg PO DAILY Qty: 0 0RF
Rx Instructions:
Skip every 3rd dose.
For example, if taken Mon then skip Mon and resume
acetaminophen [Tylenol Extra Strength] 500 mg Tablet
1,000 mg PO Q6HPRN PRN (Reason: mild pain)
pantoprazole 40 mg Tablet,Delayed Release (Dr/Ec)
40 mg PO DAILY
docusate sodium [Colace] 100 mg Capsule
100 mg PO DAILY
Align 4 mg Capsule
4 mg PO DAILY
docusate sodium 100 mg Capsule
100 mg PO DAILY Qty: 60 0RF
dibucaine 1 % ointment
1 applic [place] TID PRN (Reason: rectal discomfort) Qty: 28.4 0RF
Referrals:
Magaly Hill DO [Family Provider] -
Interventions
Interventions:
*Risk Screen - Suicide Last Done: 01/30/24 02:31
*General Assessment Last Done: 01/30/24 02:31
*Neglect/Abuse Screening Last Done: 01/30/24 02:31
ED- Fall Risk Assessment Last Done: 01/30/24 02:42
*ED COVID-19 Vaccine History Last Done: 01/30/24 02:42
KP-Flzurk-Oeyrnspfmf Assessment Last Done: 01/30/24 02:42
ED- Cardiac Assessment Last Done: 01/30/24 02:42
ED- Pulmonary Assessment Last Done: 01/30/24 02:42
Discharge Date and Time
Print Language: OCCITAN
[2024-01-30 03:15] LABS: % Basophils 0.6 % (0-2); % Immature Granulocytes 1.4 % (0-0.5); % Lymphocytes 28.7 % (20.5-51.1); % Monocytes 11.8 % (1.7-9.3); % Neutrophils 53.5 % (42.2-75.2); Absolute Basophils 0.1 10^3/uL (0-0.2); Absolute Eosinophils 0.4 10^3/uL (0-0.7); Absolute Immature Granulocytes 0.1 10^3/uL (0-0.05); Absolute Lymphocytes 2.6 10^3/uL (1.2-3.4); Absolute Monocytes 1.1 10^3/uL (0.1-0.6); Absolute Neutrophils 4.9 10^3/uL (1.4-6.5); Hematocrit 33.1 % (37.0-47.0); Hemoglobin 10.3 g/dL (12.0-16.0); Mean Corp Hgb Conc. 31.1 g/dL (33.0-37.0); Mean Corpuscular Hgb 30.9 pg (27.0-31.0); Mean Corpuscular Volume 99.4 fL (81.0-99.0); Mean Platelet Volume 10.4 fL (7.4-10.4); Nucleated Red Blood Cells % 0 %; Platelet Count 206 10^3/uL (130-400); Red Blood Cell Count 3.33 10^6/uL (4.20-5.40); Red Cell Dist. Width 14.2 % (11.5-14.5); White Blood Cell Count 9.1 10^3/uL (4.8-10.8)
[2024-01-30 03:30] LABS: ALT (SGPT) 44 U/L (0-35); AST (SGOT) 40 U/L (14-36); Albumin 3.7 g/dl (3.5-5.0); Alkaline Phosphatase 58 U/L (38-126); Blood Urea Nitrogen 18 mg/dl (7-17); Calcium 9.4 mg/dl (8.4-10.2); Carbon Dioxide 26 mmol/L (22-30); Chloride 111 mmol/L (98-107); Estimated Creatinine Clearance 32 ml/min; Glucose 109 mg/dl (70-99); Potassium 3.9 mmol/L (3.5-5.1); Sodium 143 mmol/L (135-145); Total Bilirubin 0.2 mg/dl (0.2-1.3); Total Protein 5.8 g/dl (6.3-8.2); eGFR 48.94
--- NOTE | 2024-01-30 03:31 | HPS.HSE ---
Family Physician
-
Family Physician: Magaly Hill
Chief Complaint
-
Rectal bleeding
History of Present Illness
This is an 88-year-old female was past medical history of acquired hypothyroidism, microadenoma being washed, CKD, lower extremity DVT status post IVC filter on anticoagulation with Eliquis, recently status post surgical clipping for bleeding
hemorrhoids. Presents to the emergency department with bright red blood per rectum.
Patient was of Eliquis since January 21. She restarted Eliquis again January 26. Denied patient reported that she was going to the bathroom because of urinary incontinence. She then felt something in her rectal area and noted bright red blood.
She denies having any constipation. She denies diarrhea. She denies having any abdominal pain or fullness. Patient reported that her last dose of Eliquis was yesterday evening. She reported that since her discharge she initially just noticed
blood with wiping but this time she has had constant dripping. While in the emergency department she had continual dripping and soaking pads. The blood contained dark clots with bright red blood as well. No melena. She denies any nausea or
vomiting.
In the emergency department she was afebrile, blood pressure was stable at 112/70 with a pulse of 72 when she was satting 98% on room air. Hemoglobin was 10 which is slightly decreased from prior levels of 12. Electrolytes BUN/creatinine were
within normal limits.
Medical History
Past Medical History
Past Medical History: Reports Other
Additional Past Medical History:
Hemorrhoidal bleeding exacerbated by Eliquis
Leukocytosis, likely reactive
Hypernatremia
History of left lower extremity deep vein thrombosis on Eliquis, status post inferior vena cava filter
Stage IIIa chronic kidney disease
Chronic lower back pain
Adrenal insufficiency
Pituitary macroadenoma
Hypothyroidism
Past Surgical History: Reports Other
Additional Past Surgical History:
Tubal ligation
Knee surgery
Right breast lumpectomy
Social History
Tobacco: Non-smoker
Alcohol: None
Drug: None
Personal: Single
Living: Alone
Employment: Retired
Family History
Family History: Not pertinent
Allergies / Home Medications
Allergies reflects when Allergies were last updated in [facility].
Home Medications with original date entered in [facility]
Allergy/Medication List:
Allergies
Allergy/AdvReac Type Severity Reaction Status Date / Time
garlic Allergy Unknown Verified 01/30/24 02:29
Penicillins Allergy stomach Verified 01/30/24 02:29
distention;
Tolerated
ampicillin
x 2weeks
strawberry Allergy Unknown Verified 01/30/24 02:29
Home Medications
cholecalciferol (vitamin D3) 50 mcg (2,000 unit) capsule (Vitamin D3) 2,000 unit PO DAILY Supplement 05/20/15
prednisone 5 mg tablet 10 mg PO DAILY Anti-Inflammatory 06/20/22
B-complex with vitamin C 1 cap PO DAILY Supplement 08/07/23
apixaban 5 mg tablet (Eliquis) 5 mg PO BID Blood Clot Prevention/Tx 08/07/23
inulin-sorbitol 2 gram chewable tablet 2 tab PO DAILY FIBER SUPPLEMENT 08/07/23
levothyroxine 50 mcg tablet 50 mcg PO DAILY Thyroid 08/07/23
desmopressin 0.1 mg tablet 0.05 mg (1/2 x 0.1 mg) PO DAILY ENDOCRINE DISORDER #0 tabs 08/15/23
Bifidobacterium infantis 4 mg capsule (Align) 4 mg PO DAILY Supplement 01/22/24
acetaminophen 500 mg tablet (Tylenol Extra Strength) 1,000 mg PO Q6HPRN PRN mild pain 01/22/24
docusate sodium 100 mg capsule (Colace) 100 mg PO DAILY Gastrointestinal Issue 01/22/24
pantoprazole 40 mg tablet,delayed release 40 mg PO DAILY Gastrointestinal Issue 01/22/24
docusate sodium 100 mg capsule 100 mg PO DAILY #60 caps 01/26/24
dibucaine 1 % rectal ointment 1 applic [place] TID PRN rectal discomfort #28.4 grams 01/29/24
Review of Systems
-
History Source: Patient
Constitutional: Reports No Symptoms
EENT: Reports No Symptoms
Respiratory: Reports No Symptoms
Cardiac: Reports No Symptoms
Abdomen/GI: Reports Bloody Stools
: Reports No Symptoms
Musculoskeletal: Reports No Symptoms
Skin: Reports No Symptoms
Neurological: Reports No Symptoms
Endocrine: Reports No Symptoms
Hematologic/Lymphatic: Reports No Symptoms
Psych: Reports No Symptoms
Physical Exam
Vital Signs
Vital Signs
Temp Pulse Resp BP Pulse Ox
98.7 F 74 11 112/70 95
01/30/24 02:31 01/30/24 03:15 01/30/24 03:15 01/30/24 03:08 01/30/24 03:15
Physical Exam
General: No Apparent Distress
HEENT: NormoCephalic, Anicteric, Moist mucous membranes and Atraumatic
Respiratory: Clear
Cardiac: S1/S2 and Regular Rhythm
Breast: Deferred by me
GI: Soft, Non Tender, Non Distended and Normal Bowel Sounds
Rectal: Red
Genito-urinary: Deferred by me
Musculoskeletal: No Clubbing, No Cyanosis and No Edema
Skin: Warm
Neuro: AO x 3
Hematologic/Lymphatic: No Lymphadenopathy
Psych: Calm
Laboratory Results
-
01/30/24 03:04
01/30/24 03:04
Laboratory Results
Total Bilirubin 0.2 mg/dl (0.2-1.3) 01/30/24 03:04
AST 40 U/L (14-36) H 01/30/24 03:04
ALT 44 U/L (0-35) H 01/30/24 03:04
Alkaline Phosphatase 58 U/L (38-126) 01/30/24 03:04
Data Reviewed
-
Lab Data: Labs Reviewed by me
Old Records: Reviewed
Impression/Plan
-
IMPRESSION:
88 y.o female 5 days s/p hemorrhoidal stapling coming in with bright red rectal bleeding. She restarted Eliquis on January 26 and her last dose of Eliquis was yesterday evening. She had no constipation. She has no abdominal pain nausea or
vomiting. She is incontinent of these bloody diarrhea. In the ED she is passing clots mixed with red blood. Hemodynamically stable. Hemoglobin slightly reduced from prior.
PLAN:
1. Rectal bleeding - Suspect recurrent of bleeding either secondary to AC or due to mechanical movement of travis.
- admit to IMU as she has continued bleeding
- type and screening
- H&H q 8
- no indication for Kcentra at this time
- holding eliquis
- npo except sips and oral meds
- gentle hydration
- check iron indices
2. Adrenal insufficiency - on 5mg of prednisone daily
- continue prednisone 10mg daily for now, adjustment for surgery or hemodynamic compromise as needed
3. DI -
- continue desmopressin 0.05 mg daily
4. h/p DVT s/p IVC filter -
- holding eliquis
5. Hypothyroid
- continue levothyroxine 50 mcg
6. CKD - Cr at baseline
DVT PPX w/ SCDs
[2024-01-30] MEDS: NSS 1000 IV ×2 (03:58→06:16)
[2024-01-30 06:26] LABS: Hematocrit 27.9 % (37.0-47.0); Hemoglobin 8.5 g/dL (12.0-16.0)
[2024-01-30] MEDS: TRANEXAMIC ACID 100 IV (07:45)
--- NOTE | 2024-01-30 07:46 | W.PN.UPDATE ---
Update Note
Progress Note Update
UPDATE:
passing clots and blood overnight
Repeat Hgb was 8.5 from 10.3. BP 80/50
- bolus iv fluids, blood transfusion 1 unit prbc
- kcentra and tranexamic acid ordered
- colorectal surgery at bedside and packing.
Admitting to icu for close monitoring
[2024-01-30] MEDS: KCENTRA 80 UNIT IV (07:55)
--- NOTE | 2024-01-30 08:41 | CON.CRS ---
Consultation
-
Date/Time Consultation Requested: 01/30/2024
Date/Time Consultation Performed: 01/30/2024
Requesting Provider: Susan Amaro MD
Performing Provider: Mayito Sevilla MD
Reason for Consultation: rectal bleeding
Medical History
-
Chief Complaint: rectal bleeding
History of Present Illness:
88 yo female s/p recent PPH by Dr. Sevilla on 01/25/2024, on Eliquis (DVT) s/p IVCF, presents to [facility] ER complaining of bright red blood per rectum early this morning. She felt a sense of urgency and bright red blood with clots was in the
toilet. She has continued to bleed and an ambulance was called. Her last dose of Eliquis was yesterday morning. She has noted bleeding since onset and soaking pads in the ER. She denies nausea, vomiting, or abdominal pain. Her hgb on arrival was
10.3 but a repeat shows it at 8.2. She has been receiving blood, 2 units was ordered. She was initially hypotensive but this has improved. At bedside, she continued to bleed. She was packed with Surgicel by Dr. Sevilla. TXA and K-centra has been
ordered. We have been consulted for further surgical opinion.
Past Medical History
Past Medical History: Seizures and Other (GERD, Hypercholesterolemia and Other (Osteoarthritis, adrenal insufficiency, hypothyroidism), LLE DVT (on eliquis, IVCF))
Past Surgical History: Other (Gynecological (Tubal ligation) and Other (Teeth implants, knee surgery, cataract repair, right breast lumpectomy, Mohs surgery on left side of face, stye surgery of left eye, LASEK eye surgery))
Social History
Tobacco: Non-Smoker
Alcohol: None
Drug: None
Family History
Family History: Reviewed & Not Pertinent
Allergies / Home Medications
Allergy/AdvReac Type Severity Reaction Status Date / Time
garlic Allergy Unknown Verified 01/30/24 02:29
Penicillins Allergy stomach Verified 01/30/24 02:29
distention;
Tolerated
ampicillin
x 2weeks
strawberry Allergy Unknown Verified 01/30/24 02:29
�Medication �Instructions �Recorded �Confirmed �Type
cholecalciferol (vitamin D3) 50 2,000 unit PO DAILY Supplement 05/20/15 01/30/24 History
mcg (2,000 unit) capsule (Vitamin
D3)
prednisone 5 mg tablet 10 mg PO DAILY Anti-Inflammatory 06/20/22 01/30/24 History
B-complex with vitamin C 1 cap PO DAILY Supplement 08/07/23 01/30/24 History
apixaban 5 mg tablet (Eliquis) 5 mg PO BID Blood Clot 08/07/23 01/30/24 History
Prevention/Tx
inulin-sorbitol 2 gram chewable 2 tab PO DAILY FIBER SUPPLEMENT 08/07/23 01/30/24 History
tablet
levothyroxine 50 mcg tablet 50 mcg PO DAILY Thyroid 08/07/23 01/30/24 History
desmopressin 0.1 mg tablet 0.05 mg (1/2 x 0.1 mg) PO DAILY 08/15/23 01/30/24 Rx
ENDOCRINE DISORDER #0 tabs
Bifidobacterium infantis 4 mg 4 mg PO DAILY Supplement 01/22/24 01/30/24 History
capsule (Align)
acetaminophen 500 mg tablet 1,000 mg PO Q6HPRN PRN mild pain 01/22/24 01/30/24 History
(Tylenol Extra Strength)
docusate sodium 100 mg capsule 100 mg PO DAILY Gastrointestinal 01/22/24 01/30/24 History
(Colace) Issue
pantoprazole 40 mg tablet,delayed 40 mg PO DAILY Gastrointestinal 01/22/24 01/30/24 History
release Issue
dibucaine 1 % rectal ointment 1 applic [place] TID PRN rectal 01/29/24 01/30/24 Rx
discomfort #28.4 grams
Review of Systems
-
: Bleeding
A 10 point review of systems was completed, and was negative except as per HPI.
Physical Exam
Vital Signs
Temp 97.7 F 01/30/24 08:23
Pulse 62 01/30/24 08:23
Resp Rate 12 01/30/24 08:23
Blood pressure 113/59 01/30/24 08:23
SaO2 97 01/30/24 08:05
01/29/24 01/30/24 12
06:59 06:59 06:59
Actual Weight 72.2 kg
Body Mass Index (BMI) 32.2
Lab Results / Allergies
01/30/24 06:07
01/30/24 03:04
WBC 9.1 10^3/uL (4.8-10.8) 01/30/24 03:04
Hgb 8.5 g/dL (12.0-16.0) L 01/30/24 06:07
Hct 27.9 % (37.0-47.0) L 01/30/24 06:07
Plt Count 206 10^3/uL (130-400) 01/30/24 03:04
Abs Immat Gran (auto) 0.1 10^3/uL (0-0.05) H 01/30/24 03:04
Neutrophils % 53.5 % (42.2-75.2) 01/30/24 03:04
Allergy/AdvReac Type Severity Reaction Status Date / Time
garlic Allergy Unknown Verified 01/30/24 02:29
Penicillins Allergy stomach Verified 01/30/24 02:29
distention;
Tolerated
ampicillin
x 2weeks
strawberry Allergy Unknown Verified 01/30/24 02:29
Physical Exam
General: Well Developed, Well Nourished and No Apparent Distress
GI: Soft, Non Tender and Non Distended
Rectal: Red (active bright red rectal bleeding)
Neuro: AO x 3
Data Reviewed
-
Labs: Labs Reviewed by me, Discussed with Physician and Discussed with Patient
Old Records: Reviewed
Assessment / Plan
-
Assessment:
Plan:
-Rectum packed with Surgicel by Dr. Sevilla at bedside
-Transfusion - 2 units PRBCs
-TXA - 1 g now
-K centra x 1 now
-Will re-evaluate - may need flex sig if continues to bleed
-Admit hospitalist service
--- NOTE | 2024-01-30 11:32 | W.IMMPOSTOP ---
Documented by User: MAURILIO Barkley 01/30/24 11:37
Surgical Immed Post Op Note
-
Primary Surgeon: Mayito Sevilla MD
Fly Finisher: MIRANDA Deluna
Pre-op Diagnosis: Rectal bleeding
Post-op Diagnosis: Same
Procedure Performed: Rectal Exam under Anesthesia
Anesthesia Type: GET
Specimen / Cultures: None
Estimated Blood Loss: 5cc
Complications: None
Operative Findings:
Small bleeding point in left lateral quadrant secondary to
moderate expulsion of clots

Documented by User: Geoff Sevilla MD 01/30/24 11:41
Surgical Immed Post Op Note
-
Primary Surgeon: Mayito Seivlla MD
Fly Finisher: MIRANDA Deluna
Pre-op Diagnosis: Rectal bleeding
Post-op Diagnosis: Same
Procedure Performed: Rectal Exam under Anesthesia with control of bleeding
Anesthesia Type: MAC
Specimen / Cultures: None
Estimated Blood Loss: 5cc
Complications: None
Operative Findings:
Small bleeding point in left lateral quadrant
Patient's son Sukhwinder updated in the waiting room
--- NOTE | 2024-01-30 12:06 | W.PN.HOSP.TC ---
Today's Communication/Plan
-
Trend H/H, supportive transfusions if needed
OR with colorectal surgery
Hold Eliquis
Assessment / Plan
Assessment / Plan
#Rectal bleeding
-Likely secondary to recent travis placed for hemorrhoid, also on Eliquis
-S/p Kcentra and TXA given today due to persistent bleeding and hypotension
-Eliquis was held on admission; hemoglobin trend 10.3�8.5
-N.p.o. for likely surgical procedure with colorectal team today
-Order iron panel, replete if needed
-Trend H/H every 8 hours for now
-Supportive transfusions as needed
#Adrenal insufficiency
-Unclear if primary versus secondary; not on fludrocortisone so assume secondary
-Home regimen includes prednisone 5 mg daily; increase to 10 mg for now due to hypotension and OR today
-Continue to monitor vitals
#Diabetes insipidus
-Likely central; stable on home desmopressin 0.05 mg to
#Hypothyroidism
-Likely secondary, seems to have significant pituitary disease with previous adenoma
-Stable on home levothyroxine 50 mcg daily
#CKD stage IIIa
-Baseline creatinine near 1.1, presented at baseline
-No known bone mineral disease, chronic acidemia, significant chronic anemia
#H/O DVT s/p IVC filter
-Still remains on Eliquis, held as per above
DVT prophylaxis: SCDs
Diet: CLD, plan to advance after OR and bleeding stabilization
CODE STATUS: Full code
Anticipated Discharge: > 48 hours
Subjective/Interval History
-
Date of Service: January 30, 2024
Seen and examined at the bedside in the ED. Her son was present in the room and was updated. Was given Kcentra and TXA. AFVSS at time of my evaluation
Denies any acute complaints, including chest pain, dyspnea, fevers or chills, abdomen pain, nausea/vomiting, urinary issues, other sources of bleeding or bruising
Objective Data
-
Labs:
Laboratory Results
01/30/24 01/30/24 01/30/24
03:04 06:07 11:28
WBC 9.1
Hgb 10.3 L 8.5 L Pending
Hct 33.1 L 27.9 L Pending
Plt Count 206
Sodium 143
Potassium 3.9
Chloride 111 H
Carbon Dioxide 26
BUN 18 H
Creatinine 1.1 H
Glucose 109 H
Calcium 9.4
Total Bilirubin 0.2
AST 40 H
ALT 44 H
Alkaline Phosphatase 58
01/30/24
19:28
WBC
Hgb Pending
Hct Pending
Plt Count
Sodium
Potassium
Chloride
Carbon Dioxide
BUN
Creatinine
Glucose
Calcium
Total Bilirubin
AST
ALT
Alkaline Phosphatase
Vital Signs:
Vital Signs
Temp Pulse Resp BP Pulse Ox
99.0 F 70 14 126/70 100
01/30/24 11:30 01/30/24 12:00 01/30/24 12:00 01/30/24 12:00 01/30/24 12:00
I&O
01/29/24 01/30/24 01/31/24
06:59 06:59 06:59
Intake Total 0 / 0
Output Total 150 / 150
Balance -150 / -150
Review of Systems
-
History Source: Patient
All other systems: Reviewed and negative
Physical Exam
-
General: Well Developed, No Apparent Distress, Comfortable and Obese
HEENT: Normocephalic, Atraumatic, Moist Mucous Membranes and Anicteric
Respiratory: Clear to Auscultation and Non Labored Respirations
Cardiac: Regular Rhythm and S1/S2; Negative Murmur, Rub or Gallop
GI: Soft, Nontender, Nondistended and Normal Bowel Sounds
Musculoskeletal: No Clubbing, No Cyanosis and No Edema
Skin: Warm, Dry and Normal Turgor; Negative Rash or Jaundice
Neuro: AO x 3 and Nonfocal/Grossly Intact
Data Reviewed
-
Labs: Labs Reviewed by me, Discussed with Patient and Discussed with Family
[2024-01-30] MEDS: D5/0.45%NACL 1000 IV (13:28)
[2024-01-30] MEDS: SYNTHROID 50 MCG PO (13:34)
[2024-01-30] MEDS: DELTASONE 10 MG PO (13:35)
[2024-01-30 14:10] LABS: Hematocrit 36.3 % (37.0-47.0); Hemoglobin 11.8 g/dL (12.0-16.0)
--- NOTE | 2024-01-30 14:16 | PTCARENOTE ---
pt admitted from PACU , post hemorrhoid ectomy , at 1245 , pt alert and oriented, on 2L NC sats of 98% , NSR on monitor, BP 128/101 , completed second unit of PRBC on arrival , pt denies co pain , small amt of blood clots per rectum , labs reviewed
, HH sent at 1400 awaiting for results , tolerating clear liquids
--- NOTE | 2024-01-30 14:57 | CON.INTV ---
Consultation
Consultation Request
Date/Time Consultation Requested: 01/30/24
Date/Time Consultation Performed: 01/30/24
Requesting Provider: Serafin Vicente
Performing Provider: Anastacio Astorga
Reason for Consultation: ICU admission post op
Medical History
-
Chief Complaint: Lower GI bleed
History of Present Illness:
88-year-old female with past medical history of acquired hypothyroidism, pituitary adenoma being watched, CKD stage IIIa, lower extremity DVT status post IVC filter on chronic anticoagulation with Eliquis, recently status post surgical clipping for
bleeding hemorrhoids presented to the ED with bright red blood per rectum hide buyer on 01/30/2024. Patient was off of Eliquis since January 21 and restarted on January 26. Upon using the restroom felt a sense of urgency and bright red blood
with blood was in the toilet. She continued to bleed and called EMS. She denies any diarrhea, constipation, abdominal pain, nausea, vomiting. In the ED she was afebrile, blood pressure 112/70, heart rate 72, satting 98% on room air, hemoglobin 10.3
which was slightly decreased from prior at levels of 12. Electrolytes BUN/cr within normal limits. Around 06:00, repeat hemoglobin 8.2 and patient found to be hypotensive. Initially BP responded to fluids, then dropped again and she received 1
unit blood. At bedside she continued to bleed. General surgery was consulted. She was packed with Surgicel by Dr. Sevilla. TXA and K-centra had been ordered and brought to OR for further evaluation. Dr. Sevilla performed rectal exam under anesthesia
and found small bleeding point in left lateral quadrant secondary to moderate expulsion of clots. After procedure, patient brought to ICU for continued monitoring. Repeat hg 11.8.
PMHx: CKD stage IIIa, adrenal insufficiency on chronic low-dose prednisone, DVT (R leg 2022, bilateral 2023)) chronic anti-coagulation with Eliquis s/p inferior vena cava filter, hypernatremia, diverticulitis (08/2016), Fuches disease of eye,
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
impaired fasting glucose, iron deficiency anemia, chronic back pain
Past surgical history:
Laparoscopic cholecystectomy, deep implant, tubal ligation, knee surgery, cataract surgery, knee repair, lumpectomy of her right breast with benign breast mass, Mohs surgery on left side of face, Lasix eye surgery, LT L2-L3 TFESI NO SED 07/2023,
Past Medical History
Past Medical History: Other (See above)
Past Surgical History: Other (See above)
Social History
Tobacco: Non-smoker
Alcohol: None
Drug: None
Personal: Single
Living: Alone
Employment: Retired
Family History
Family History: Other (Father had GI bleed, unknown etiology. Sister lung cancer stage IV, breast cancer. Maternal grandmother had enlarged heart.)
Allergies / Home Medications
Allergies
Allergy/AdvReac Type Severity Reaction Status Date / Time
garlic Allergy Unknown Verified 01/30/24 02:29
Penicillins Allergy stomach Verified 01/30/24 02:29
distention;
Tolerated
ampicillin
x 2weeks
strawberry Allergy Unknown Verified 01/30/24 02:29
Home Medications
�Medication �Instructions �Recorded �Confirmed �Last Taken �Type
cholecalciferol (vitamin D3) 50 2,000 unit PO DAILY Supplement 05/20/15 01/30/24 01/29/24 08:00 History
mcg (2,000 unit) capsule (Vitamin
D3)
prednisone 5 mg tablet 10 mg PO DAILY Anti-Inflammatory 06/20/22 01/30/24 01/22/24 History
levothyroxine 50 mcg tablet 50 mcg PO DAILY Thyroid 08/07/23 01/30/24 01/29/24 History
Bifidobacterium infantis 4 mg 4 mg PO DAILY Supplement 01/22/24 01/30/24 01/29/24 History
capsule (Align)
acetaminophen 500 mg tablet 1,000 mg PO Q6HPRN PRN mild pain 01/22/24 01/30/24 Unknown History
(Tylenol Extra Strength)
pantoprazole 40 mg tablet,delayed 40 mg PO DAILY Gastrointestinal 01/22/24 01/30/24 01/21/24 History
release Issue
apixaban 5 mg tablet (Eliquis) 5 mg PO BID 01/30/24 01/30/24 01/29/24 History
desmopressin 0.1 mg tablet 0.05 mg PO 1XD ENDOCRINE DISORDER 01/30/24 01/30/24 01/29/24 History
vitamin B complex 1 tab PO DAILY 01/30/24 01/30/24 01/29/24 History
Review of Systems
-
History Source: Patient
Constitutional: Other (Feel overall very cold - requested blankets and increase room temp. )
EENT: No Symptoms
Respiratory: No Symptoms
Cardiac: No Symptoms
Abdomen/GI: No Symptoms
: No Symptoms
Neuro: No Symptoms
Vitals / Labs / Diagnostic Testing
Vital Signs
Temp Pulse Resp BP Pulse Ox
96.5 F L 70 15 147/94 98
01/30/24 12:45 01/30/24 14:15 01/30/24 14:15 01/30/24 14:00 01/30/24 14:15
Lab Data
01/30/24 03:04
Diagnostic Testing:
Physical Exam
-
HEENT: Normocephalic
Cardiovascular: S1/S2 and Regular Rhythm
Respiratory: Clear
GI: Soft, Non Distended, Tender (Slight tenderness with palpation diffusely) and Normal Bowel Sounds
Neurology: AO x 3
Skin: Warm and Good Color
General: Comfortable and Good Appetite
Assessment
-
88-year-old female with past medical history of DVT status post IVC filter placement on chronic anticoagulation with Eliquis, adrenal insufficiency on chronic prednisone, hypothyroidism, pituitary microadenoma, diabetes insipidus, hypertension with
recent hemorrhoidectomy presented to the ED bright red blood per rectum. In ED, patient's hemoglobin dropped from 10.3 to 8.5 and was found to be hypotensive. Initially responsive to fluid bolus then blood pressure dropped again. Patient given 1
unit of packed red blood cells. General surgery was consulted and gave 1 g TXA, Kcentra and rectum packed with Surgicel. She was then brought to the OR for rectal exam under anesthesia and found small bleeding point in left lateral quadrant
secondary to moderate expulsion of clots. Postop, patient was admitted to ICU for further monitoring. Repeat hemoglobin 11.8. Patient currently hypertensive BP 147/94. No active signs of bleed.
CPA: CKD stage IIIa, adrenal insufficiency on chronic low-dose prednisone, DVT (R leg 2022, bilateral 2023)) chronic anti-coagulation with Eliquis s/p inferior vena cava filter, hypernatremia, diverticulitis (08/2016), Fuches disease of eye,
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
impaired fasting glucose, iron deficiency anemia, chronic back pain
Impression:
# Lower GI bleed in setting of chronic anticoagulation
# DVT s/p IVCF on chronic anticoagulation with eliquis
# Transaminitis
# Adrenal insufficiency
# Diabetes insipidus
# Hypothyroidism
# CKD stage IIIa
Plan:
Neuro:
-Pt AAOx3
-Hx pituitary microadenoma being watched
-NO hx of seizures (mentioned in previous note. Confirmed by pt and not noted in PCP recent follow up note)
Respiratory:
-Satting well on room air
-Keep SpO2 > 90-94%
-Aspiration precautions
Cardiovascular:
-Hypotensive episode in setting of acute blood loss anemia secondary to lower GI bleed
-BP stable after 2L fluid in ED and 1 unit blood
-Monitor BP
-Maintenance fluids
-Hx HTN not on any medications for it at home
GI:
-Lower GI bleed
-Small bleeding point in left lateral quadrant secondary to moderate expulsion of clots found on rectal exam
-S/p Kcentra and TXA
-Hold eliquis
-Trend H&H
-Pantoprazole 40 mg p.o. once daily
-Monitor for bleed
-2 large bore IV catheters
-Clear liquid diet
-General surgery following
-Transaminitis
-Slight elevated in AST 40 and ALT 44
-Monitor
Renal:
-Hx CKD stage 3a
-Hx Hypernatremia
-Cr 1.1
-Electrolytes within normal limits
-Replace K to keep >4 and mg >2.5
-Monitor I&Os
Endocrine:
-Pituitary microadenoma being monitored
-Adrenal insufficiency
-Likely secondary adrenal insufficiency is now on fludrocortisone
-Home dose Prednisone 5mg qd -> increase to 10 mg in setting of hypotension and OR
-Monitor vitals
-Diabetes insipidus
-Continue home desmopressin 0.05 mg daily
-Hypothyroidism
-Continue home levothyroxine 50 daily
Hemeonc:
-DVT - SCD anticoagulation on hold
-Acute blood loss anemia secondary to lower GI bleed
-Trend H&H
-Transfuse for hg <7
-Transfuse ptl <20 or if active bleed <50
Patient is currently hemodynamically stable. Likely able to downgrade out of ICU this evening.
[2024-01-30] MEDS: DDAVP 0.05 MG PO (16:51)
--- NOTE | 2024-01-30 17:09 | PTCARENOTE ---
pt had x 1 blood clots after transfer , no further bleeding since then , tolerating clear liquids
--- NOTE | 2024-01-30 20:05 | PTCARENOTE ---
rec'd pt resting in bed, denies pain, SR, BP stable, + pulses, skin warm/dry, RA, lungs decr in bases, sat 95, + bowel sounds, no bm, no bldg, abd obese, soft, lucy clear liquids, purewick in place- voiding yellow urine
--- NOTE | 2024-01-30 21:00 | PTCARENOTE ---
sleeping, RA sat-88, 2liters nc applied
[2024-01-30 21:33] LABS: Hematocrit 31.3 % (37.0-47.0); Hemoglobin 10.1 g/dL (12.0-16.0)
[2024-01-30 21:38] LABS: INR 1.02; PT 13.7 Sec (11.4-14.6)
[2024-01-30 21:42] LABS: Magnesium 2.2 mg/dl (1.6-2.3); Phosphorus 2.8 mg/dl (2.5-4.5)
[2024-01-30 22:03] LABS: APTT 23.2 Sec (23.4-35.0)
[2024-01-31] VITALS (14 sets, daily range): BP systolic 121–154; BP diastolic 78–111; BMI 33.1
--- NOTE | 2024-01-31 | PTCARENOTE ---
sys reviewed, sm amt bloody drainage from rectum, no clots, CHG bath done, linens changed
[2024-01-31] MEDS: NUPERCAINAL 1% OINTMENT 1 APPLIC TOPICAL ×3 (03:03→14:38)
[2024-01-31] MEDS: SYNTHROID 50 MCG PO (03:23)
[2024-01-31 03:40] LABS: % Basophils 0.1 % (0-2); % Immature Granulocytes 1.8 % (0-0.5); % Lymphocytes 10.6 % (20.5-51.1); % Monocytes 4.8 % (1.7-9.3); % Neutrophils 82.7 % (42.2-75.2); Absolute Immature Granulocytes 0.2 10^3/uL (0-0.05); Absolute Lymphocytes 1.3 10^3/uL (1.2-3.4); Absolute Monocytes 0.6 10^3/uL (0.1-0.6); Absolute Neutrophils 10.4 10^3/uL (1.4-6.5); Hematocrit 30.2 % (37.0-47.0); Hemoglobin 9.5 g/dL (12.0-16.0); Mean Corp Hgb Conc. 31.5 g/dL (33.0-37.0); Mean Corpuscular Hgb 30.9 pg (27.0-31.0); Mean Corpuscular Volume 98.4 fL (81.0-99.0); Mean Platelet Volume 10.7 fL (7.4-10.4); Nucleated Red Blood Cells % 0 %; Platelet Count 130 10^3/uL (130-400); Red Blood Cell Count 3.07 10^6/uL (4.20-5.40); Red Cell Dist. Width 15.7 % (11.5-14.5); White Blood Cell Count 12.6 10^3/uL (4.8-10.8)
[2024-01-31 03:45] LABS: Blood Urea Nitrogen 14 mg/dl (7-17); Carbon Dioxide 20 mmol/L (22-30); Chloride 113 mmol/L (98-107); Estimated Creatinine Clearance 44 ml/min; Glucose 137 mg/dl (70-99); Iron 53 ug/dl (37-170); Potassium 4.7 mmol/L (3.5-5.1); Sodium 141 mmol/L (135-145); eGFR > 60.00
--- NOTE | 2024-01-31 03:46 | PTCARENOTE ---
sys reviewed, changes noted, no further bldg noted
[2024-01-31 03:54] LABS: Percent Saturation 26 % (20-50); Total Iron Binding Capacity 199 ug/dl (265-497)
[2024-01-31 04:30] LABS: Ferritin 78.1 ng/ml (11.1-264.0)
--- NOTE | 2024-01-31 08:23 | W.PN.CRS1 ---
Today's Communication / Plan
-
As below
Assessment/Plan
-
88-year-old female with PMH of LLE DVT (s/p IVC filter, on Eliquis), seizure disorder, GERD, HLD, OA, adrenal insufficiency, hypothyroid who underwent a PPH procedure on 01/[address] Sevilla for bleeding hemorrhoids, presents with bright red blood
and clots, associated with a drop in Hb from 10.3-8.5
POD 1 exam under anesthesia, control of anal bleeding from hemorrhoid wound
AFVSS
WBC 12.6, Hb 9.5 from 10.1
� Repeat CBC at noon to confirm stabilization
� Okay for regular diet
� Pain control with Tylenol as needed and Dibucaine as needed
� OOB/IS
� Hold therapeutic AC for 1 week
� Appreciate hospitalist
Dispo�if CBC stable at noon and no further bleeding, okay for DC this afternoon versus tomorrow; hold Eliquis for 1 week postop; follow-up with Dr. Sevilla in 2 to 4 weeks
Subjective Data
Subjective Data
Date of Service: January 31, 2024
No overnight events. No further bleeding, no BMs yet.
Mild pain, controlled.
Objective Data
-
Vital Signs
Temp Pulse Resp BP Pulse Ox
98.1 F 55 14 121/78 96
01/31/24 03:18 01/31/24 06:00 01/31/24 06:00 01/31/24 06:00 01/31/24 06:00
Intake & Output
01/30/24 01/31/24 02/01/24
06:59 06:59 06:59
Intake Total 2700 / 2750 50 / 50
Output Total 1800 / 1800
Balance 900 / 950 50 / 50
Intake:
Oral fluids 1500 / 1500
IV fluids (Total) 950 / 1000 50 / 50
D5/0.45%NaCl 1,000 ml @ 50 mls/ 800 / 850 50 / 50
hr IV .Q20H YURI Rx#:[id number]
Normosol 150 / 150
Blood Product Amount Infused ( 250 / 250
mL)
Packed Rbc Leukoreduced Unit 250 / 250
[id number]
Output:
Urine, Voided 1800 / 1800
Other:
How many times incontinent 1
SATURATED amount urine
Lab Results
01/31/24 03:20
01/31/24 03:20
[2024-01-31] MEDS: DELTASONE 10 MG PO (08:31)
[2024-01-31] MEDS: DDAVP 0.05 MG PO (08:31)
--- NOTE | 2024-01-31 08:53 | W.PN.INTV ---
Today's Communication / Plan
Recommendations
Downgrade/discharge pending afternoon hg
Stop IVF with good PO intake
Assessment
-
88-year-old female with past medical history of DVT status post IVC filter placement on chronic anticoagulation with Eliquis, adrenal insufficiency on chronic prednisone, hypothyroidism, pituitary microadenoma, diabetes insipidus, hypertension with
recent hemorrhoidectomy presented to the ED bright red blood per rectum. In ED, patient's hemoglobin dropped from 10.3 to 8.5 and was found to be hypotensive. Initially responsive to fluid bolus then blood pressure dropped again. Patient given 1
unit of packed red blood cells. General surgery was consulted and gave 1 g TXA, Kcentra and rectum packed with Surgicel. She was then brought to the OR for rectal exam under anesthesia and found small bleeding point in left lateral quadrant
secondary to moderate expulsion of clots. A small piece of surgery form was placed at bleeding site. Postop, patient was admitted to ICU for further monitoring.
CPA: CKD stage IIIa, adrenal insufficiency on chronic low-dose prednisone, DVT (R leg 2022, bilateral 2023)) chronic anti-coagulation with Eliquis s/p inferior vena cava filter, hypernatremia, diverticulitis (08/2016), Fuches disease of eye,
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
impaired fasting glucose, iron deficiency anemia, chronic back pain
Impression:
# Lower GI bleed in setting of chronic anticoagulation
# PPH procedure on 01/[address] Sevilla POD 1
# DVT s/p IVCF on chronic anticoagulation with eliquis
# Transaminitis
# Adrenal insufficiency
# Diabetes insipidus
# Hypothyroidism
# CKD stage IIIa
Plan:
Neuro:
-Pt AAOx3
-Hx pituitary microadenoma being watched
-NO hx of seizures (mentioned in previous note. Confirmed by pt and not noted in PCP recent follow up note)
Respiratory:
-Satting well on room air
-Keep SpO2 > 90-94%
-Aspiration precautions
Cardiovascular:
-Hypotensive episode in setting of acute blood loss anemia secondary to lower GI bleed
-BP stable after 2L fluid in ED and 1 unit blood
-Monitor BP
-Maintenance fluids
-Now slightly hypertensive
-Hx HTN not on any medications for it at home
GI:
-Lower GI bleed
-PPH procedure on 01/[address] Sevilla POD 1
-Small bleeding point in left lateral quadrant secondary to moderate expulsion of clots found on rectal exam
-S/p Kcentra and TXA
-Hold eliquis 1 week post op per surgery
-Trend H&H
-Pantoprazole 40 mg p.o. once daily
-Monitor for bleed
-2 large bore IV catheters
-Clear liquid diet -> regular diet per surgery
-Pain management
-General surgery following
-No signs of active bleeding
-Transfer to [facility] if afternoon hg stable
-Stop IVF as pt has good PO intake
-Transaminitis
-Slight elevated in AST 40 and ALT 44
-Monitor
Renal:
-Hx CKD stage 3a
-Hx Hypernatremia
-Cr 1.1 -> 0.8
-Electrolytes within normal limits
-Replace K to keep >4 and mg >2.5
-Monitor I&Os
Endocrine:
-Pituitary microadenoma being monitored
-Adrenal insufficiency
-Likely secondary adrenal insufficiency is now on fludrocortisone
-Home dose Prednisone 5mg qd -> increase to 10 mg in setting of hypotension and OR
-Monitor vitals
-Diabetes insipidus
-Continue home desmopressin 0.05 mg daily
-Hypothyroidism
-Continue home levothyroxine 50 daily
Hemeonc:
-DVT - SCD anticoagulation on hold
-Acute blood loss anemia secondary to lower GI bleed
-Trend H&H
-Transfuse for hg <7
-Transfuse ptl <20 or if active bleed <50
Patient is currently hemodynamically stable. Likely able to downgrade out of ICU this evening.
Subjective Dataa
Subjective Data
Date of Service:
Date of Service: January 31, 2024
Review of Systems
General: Fever (n), Sweats (n) and Chills (n)
HEENT: Oral/Throat Pain (Slight scratchy throat )
Cardiopulmonary: Dyspnea (n), Cough (n) and Chest Pain (n)
GI: Abdominal Pain (n), Nausea (n), Vomiting (n), Diarrhea (n) and Melena (Passed some clots overnight )
Neuro: Headache (n) and Dizziness (n)
Objective Data
Data Reviewed
Vital Signs / I&O / Oxygen:
Vital Signs
Temp Pulse Resp BP Pulse Ox
98.1 F 55 14 121/78 96
01/31/24 03:18 01/31/24 06:00 01/31/24 06:00 01/31/24 06:00 01/31/24 06:00
Intake and Output
01/30/24 01/31/24 02/01/24
06:59 06:59 06:59
Intake Total 2700 / 2750 50 / 50
Output Total 1800 / 1800
Balance 900 / 950 50 / 50
SaO2 96
Nasal Cannula flow liters per 2
minute
Physical Exam
General: Comfortable
HEENT: Normocephalic
Cardiovascular: S1-S2, Regular Rhythm and Peripheral Edema (n)
Respiratory: Clear
GI: Soft, Non Distended, Tender ('sensitive' with palpation ) and Normal Bowel Sounds
Neurology: AO x 3
Skin: Warm and Good Color
Labs/Micro/Reports
Lab Data
01/31/24 03:20
Laboratory Results
01/30/24
21:16
PT 13.7
INR 1.02
APTT 23.2 L
--- NOTE | 2024-01-31 09:21 | PTCARENOTE ---
pt awake and alert, NSR on monitor , BP 132/87 this am , she was on 2L NC overnight now off and room air stat is 98% , Lungs clear , abdomen is soft and tender at times , tolerating clear liquids advanced diet to regular , small amt of dark brown
bloody drainage from rectum , co pain and given rectal ointment , pt is now oob in chair with assist of walker , tolerated well , HH this am 9.5 & 30.2 , repeat for 1200 today . she is now written for med Surg status , IVF DC . as per colorectal pt
may be DC later today or tomorrow
--- NOTE | 2024-01-31 10:33 | W.PN.HOSP.TC ---
Today's Communication/Plan
-
Repeat H/H at noon
Hold Eliquis for 7 days
Possible discharge
Assessment / Plan
Assessment / Plan
#Rectal bleeding
-Likely secondary to recent travis placed for hemorrhoid, also on Eliquis
-S/p Kcentra and TXA given today due to persistent bleeding and hypotension
-Eliquis was held on admission; hemoglobin trend fairly stable
-S/p OR with colorectal team for hemostasis
-Iron panel without signs of significant LEMUEL
-Repeat H/H at noon, likely DC if stable
-Eliquis will need to be held for 7 days (resume on 02/07)
#Adrenal insufficiency
-Unclear if primary versus secondary; not on fludrocortisone so assume secondary
-Home regimen includes prednisone 5 mg daily; increase to 10 mg for now due to hypotension and OR today
-Continue to monitor vitals, plan to de-escalate to 5 mg at discharge
#Diabetes insipidus
-Likely central; stable on home desmopressin 0.05 mg to
#Hypothyroidism
-Likely secondary, seems to have significant pituitary disease with previous adenoma
-Stable on home levothyroxine 50 mcg daily
#CKD stage IIIa
-Baseline creatinine near 1.1, presented at baseline
-No known bone mineral disease, chronic acidemia, significant chronic anemia
#H/O DVT s/p IVC filter
-Still remains on Eliquis, held as per above
DVT prophylaxis: SCDs
Diet: CLD, plan to advance after OR and bleeding stabilization
CODE STATUS: Full code
Anticipated Discharge: Within 24 hours
Subjective/Interval History
-
Date of Service: January 31, 2024
Seen and examined at the bedside. No acute events reported overnight. AFVSS this morning.
No further bleeding reported after OR yesterday. Hemoglobin stable as of this morning.
Denies any acute complaints
Objective Data
-
Labs:
Laboratory Results
01/31/24 01/31/24
03:20 12:00
WBC 12.6 H
Hgb 9.5 L Pending
Hct 30.2 L Pending
Plt Count 130 D
Sodium 141
Potassium 4.7
Chloride 113 H
Carbon Dioxide 20 L
BUN 14
Creatinine 0.8
Glucose 137 H
Calcium 8.0 L
Vital Signs:
Vital Signs
Temp Pulse Resp BP Pulse Ox
97.7 F 56 13 132/87 98
01/31/24 09:16 01/31/24 09:16 01/31/24 09:16 01/31/24 09:16 01/31/24 09:16
I&O
01/30/24 01/31/24 02/01/24
06:59 06:59 06:59
Intake Total 2700 / 2750 150 / 150
Output Total 1800 / 1800
Balance 900 / 950 150 / 150
Review of Systems
-
History Source: Patient
All other systems: Reviewed and negative
Physical Exam
-
General: Well Developed, No Apparent Distress, Comfortable and Obese
HEENT: Normocephalic, Atraumatic, Moist Mucous Membranes and Anicteric
Respiratory: Clear to Auscultation and Non Labored Respirations; Negative Wheezes, Rales or Rhonchi
Cardiac: Regular Rhythm and S1/S2; Negative Murmur, Rub or Gallop
GI: Soft, Nontender, Nondistended and Normal Bowel Sounds
Musculoskeletal: No Clubbing, No Cyanosis, No Edema and Normal Gait & Station
Skin: Warm, Dry and Normal Turgor; Negative Rash
Neuro: AO x 3, Nonfocal/Grossly Intact and Central Nerve's Intact
Psych: Calm
Data Reviewed
-
Labs: Labs Reviewed by me, Discussed with Physician (ICU, colorectal surgery) and Discussed with Patient
[2024-01-31] MEDS: TYLENOL 650 MG PO (11:30)
[2024-01-31] MEDS: REFRESH EYE DROPS (PF) 1 DROPS OPHTH (11:31)
[2024-01-31 12:37] LABS: Hematocrit 30.3 % (37.0-47.0)
--- NOTE | 2024-01-31 14:05 | CM ---
CM following re: discharge planning.
Discussed in Rounds, reviewed pt's chart, met with pt.
Pt is an 88year old female, admitted with primary dx of Rectal bleeding.
Pt reports she lives alone in an independent apartment at [facility], has 3 supportive children, ambulates with a walker and is active with [facility].
Discharge order noted. Pt is aware, expressed her agreement with discharge and pt stated her son Mercedes will transport her home. IMM reviewed, placed on chart, pt has a copy.
PCP: Magaly schaeffer
Pharmacy: [facility]
Please fax discharge instructions to [facility] at [phone]
D/C plan: home with resumptions of [facility] services and family support. Son to transport.
[2024-01-31] MEDS: D5/0.45%NACL IV (14:40)
--- NOTE | 2024-01-31 14:59 | PTCARENOTE ---
pt ambulated hallway walker with assistance without difficulty . pt is now written for DC to home
--- NOTE | 2024-01-31 15:56 | PTCARENOTE ---
pt given DC instructions, pt verbalized understanding of DC orders, pt IVs removed , pt with personal belongings , awaiting for son to transfer to home
--- NOTE | 2024-02-01 14:16 | W.DCSUMMARY ---
Discharge Summary
Discharge Data
Date of Admission: 01/30/24
Date of Discharge: 02/01/24
-
Pending Results: No
Hospital Course
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 Recently had
intervention for hemorrhoidal bleeding with colorectal surgery. Eder were placed. Received Kcentra and TXA for ongoing bleeding and hypotension. Iron panel without evidence of significant iron deficiency. Colorectal surgery took patient to
the OR on day 1 of hospitalization for rigid sigmoidoscopy and endoscopy. No obvious ongoing bleeding at that time. Held Eliquis and monitored her hemoglobin which was stable following the procedure. Eliquis to be hold through 02/06, can resume
the morning of 02/08/2024. Should follow-up with colorectal surgery in office as well as family doctor.
Discharge Plan
-
Patient Disposition: Home (Routine Discharge)
Discharge Diagnosis/Procedures: Rectal bleeding
Condition: Good
Diet: Low Residue
Activity: As tolerated
Driving Restrictions: No driving for 24 hours
Bathing Restrictions: None
Blood Work: None
Activity Restrictions/Additional Instructions:
Schedule follow-up appointment with your family doctor, should be seen within 1 to 2 weeks of discharge from the hospital
You will need to follow-up in the office with colorectal surgery within 2 to 4 weeks of discharge
If you develop recurrence of significant rectal bleeding you should come back to the ED for further evaluation
Referrals:
Geoff Sveilla MD [Active] - in two to four weeks
Magaly Hill DO [Family Provider] -
Additional Discharge Medication Instructions: Please do not restart Eliquis for one week from your surgery. Okay to restart on 02/07/2024.
Continue [id number] Colace and MiraLAX as previously prescribed
Prescriptions:
New
docusate sodium [Colace] 100 mg capsule
100 mg PO DAILY Qty: 30 0RF
polyethylene glycol 3350 [Miralax] 17 gram powder in packet
17 g PO DAILY Qty: 14 0RF
Continued
cholecalciferol (vitamin D3) [Vitamin D3] 2,000 UNIT capsule
2,000 unit PO DAILY
prednisone 5 mg tablet
10 mg PO DAILY
levothyroxine 50 mcg tablet
50 mcg PO DAILY
acetaminophen [Tylenol Extra Strength] 500 mg Tablet
1,000 mg PO Q6HPRN PRN (Reason: mild pain)
pantoprazole 40 mg Tablet,Delayed Release (Dr/Ec)
40 mg PO DAILY
Align 4 mg Capsule
4 mg PO DAILY
desmopressin 0.1 mg tablet
0.05 mg PO 1XD
vitamin B complex Tablet
1 tab PO DAILY
Held
Eliquis 5 mg Tablet
5 mg PO BID
Hold Instructions: Resume on 02/08/24.
Discharge Orders:
Discharge Patient (As Directed); Ordered 01/31/24
Ordered By: Alberto Sanchez
Discharge Date and Time
Discharge Date/Time: 01/31/24 16:53
Print Language: MARSHALLESE
== END 2024-01-31 16:53 | disposition home health service (06) | DRG 908 ==
LOC: ICU 04:35
PROVIDERS: Physician Assistant; Surgery; ADMITTING PHYSICIAN Internal Medicine; ATTENDING PHYSICIAN Internal Medicine; CONSULT PHYSICIAN Internal Medicine Critical Care Medicine; EMERGENCY PHYSICIAN Emergency Medicine; FAMILY PHYSICIAN Family Medicine; OTHER PHYSICIAN Surgery
PROC: 0DJD8ZZ Inspection of Lower Intestinal Tract, Via Natural or Artificial Opening Endoscopic (ICD-10-PCS; 2024-01-30)
PROC: 30283B1 Transfusion of Nonautologous 4-Factor Prothrombin Complex Concentrate into Vein, Percutaneous Approach (ICD-10-PCS; 2024-01-30)
PROC: 0W3P7ZZ Control Bleeding in Gastrointestinal Tract, Via Natural or Artificial Opening (ICD-10-PCS; 2024-01-30)
PROC: 30233N1 Transfusion of Nonautologous Red Blood Cells into Peripheral Vein, Percutaneous Approach (ICD-10-PCS; 2024-01-30)
DX: K91.840 Postprocedural hemorrhage of a digestive system organ or structure following a digestive system procedure (principal); D62 Acute posthemorrhagic anemia; E27.49 Other adrenocortical insufficiency; E23.2 Diabetes insipidus; D68.32 Hemorrhagic disorder due to extrinsic circulating anticoagulants; I12.9 Hypertensive chronic kidney disease with stage 1 through stage 4 chronic kidney disease, or unspecified chronic kidney disease; K21.9 Gastro-esophageal reflux disease without esophagitis; E03.8 Other specified hypothyroidism; E78.00 Pure hypercholesterolemia, unspecified; G89.29 Other chronic pain; T45.515A Adverse effect of anticoagulants, initial encounter; I95.89 Other hypotension; K64.4 Residual hemorrhoidal skin tags; N18.31 Chronic kidney disease, stage 3a; Z86.718 Personal history of other venous thrombosis and embolism; Z95.828 Presence of other vascular implants and grafts; D35.2 Benign neoplasm of pituitary gland; Z88.0 Allergy status to penicillin; Z79.890 Hormone replacement therapy; Z79.01 Long term (current) use of anticoagulants; Z79.52 Long term (current) use of systemic steroids; Y83.8 Other surgical procedures as the cause of abnormal reaction of the patient, or of later complication, without mention of misadventure at the time of the procedure
CPT/HCPCS: 71045; 80048; 80053; 82728; 83540; 83550; 83735; 84100; 85014; 85018; 85025; 85610; 85730; 86850; 86900; 86901; 86920; 93005; 96360; 99291; J7168; P9016

== ENCOUNTER → 2024-02-20 10:36 | Outpatient (REF) | payer MEDICARE, OTHER, SELFPAY ==
[2024-02-20 13:45] LABS: ALT (SGPT) 30 U/L (0-35); AST (SGOT) 31 U/L (14-36); Albumin 4.3 g/dl (3.5-5.0); Alkaline Phosphatase 63 U/L (38-126); Blood Urea Nitrogen 19 mg/dl (7-17); Calcium 9.1 mg/dl (8.4-10.2); Carbon Dioxide 29 mmol/L (22-30); Chloride 105 mmol/L (98-107); Glucose 85 mg/dl (70-99); Potassium 3.6 mmol/L (3.5-5.1); Sodium 141 mmol/L (135-145); Total Bilirubin 0.4 mg/dl (0.2-1.3); Total Protein 6.6 g/dl (6.3-8.2); eGFR 48.94
[2024-02-20 13:53] LABS: Free T4 0.85 ng/dl (0.78-2.19)
== END ==
LOC: HWLAB 10:36
PROVIDERS: ATTENDING PHYSICIAN Internal Medicine Endocrinology, Diabetes & Metabolism; FAMILY PHYSICIAN Family Medicine
DX: D49.7 Neoplasm of unspecified behavior of endocrine glands and other parts of nervous system (principal); E03.9 Hypothyroidism, unspecified
CPT/HCPCS: 36415; 80053; 84439

== ENCOUNTER → 2024-02-27 09:23 | Outpatient (REF) | payer MEDICARE, OTHER, SELFPAY ==
[2024-02-27] VITALS (7 sets, daily range): BP systolic 67–168; BP diastolic 70–81
== END ==
LOC: RADI 09:23
PROVIDERS: ATTENDING PHYSICIAN Internal Medicine Hematology & Oncology; FAMILY PHYSICIAN Family Medicine
DX: Z46.89 Encounter for fitting and adjustment of other specified devices (principal); I82.4Z2 Acute embolism and thrombosis of unspecified deep veins of left distal lower extremity; I82.401 Acute embolism and thrombosis of unspecified deep veins of right lower extremity
CPT/HCPCS: 37193; 99152; 99153; C1769; C1773

== ENCOUNTER → 2024-04-08 13:27 | Outpatient (REF) | payer MEDICARE, OTHER, SELFPAY ==
[2024-04-08 14:45] LABS: % Basophils 0.4 % (0-2); % Eosinophils 0.6 % (0-6); % Lymphocytes 11.7 % (20.5-51.1); % Monocytes 4.3 % (1.7-9.3); Absolute Eosinophils 0.1 10^3/uL (0-0.7); Absolute Immature Granulocytes 0.1 10^3/uL (0-0.05); Absolute Lymphocytes 1.3 10^3/uL (1.2-3.4); Absolute Monocytes 0.5 10^3/uL (0.1-0.6); Absolute Neutrophils 8.9 10^3/uL (1.4-6.5); Hematocrit 40.9 % (37.0-47.0); Hemoglobin 12.6 g/dL (12.0-16.0); Mean Corp Hgb Conc. 30.8 g/dL (33.0-37.0); Mean Corpuscular Hgb 28.8 pg (27.0-31.0); Mean Corpuscular Volume 93.6 fL (81.0-99.0); Mean Platelet Volume 10.5 fL (7.4-10.4); Nucleated Red Blood Cells % 0 %; Platelet Count 227 10^3/uL (130-400); Red Blood Cell Count 4.37 10^6/uL (4.20-5.40); Red Cell Dist. Width 14.6 % (11.5-14.5); White Blood Cell Count 10.8 10^3/uL (4.8-10.8)
[2024-04-08 15:08] LABS: Iron 55 ug/dl (37-170)
[2024-04-08 15:17] LABS: Percent Saturation 17 % (20-50); Total Iron Binding Capacity 312 ug/dl (265-497)
[2024-04-08 15:44] LABS: Ferritin 15.3 ng/ml (11.1-264.0)
== END ==
LOC: RAD 13:27
PROVIDERS: ATTENDING PHYSICIAN Internal Medicine Hematology & Oncology; FAMILY PHYSICIAN Family Medicine; OTHER PHYSICIAN Internal Medicine Endocrinology, Diabetes & Metabolism
DX: D47.2 Monoclonal gammopathy (principal); I82.401 Acute embolism and thrombosis of unspecified deep veins of right lower extremity; R60.9 Edema, unspecified; E23.0 Hypopituitarism
CPT/HCPCS: 36415; 82728; 83540; 83550; 85025; 85379; 93970

== ENCOUNTER → 2024-04-26 16:17 | Outpatient (REF) | payer MEDICARE, OTHER, SELFPAY ==
[2024-04-26 13:36] LABS: % Basophils 0.3 % (0-2); % Eosinophils 1.4 % (0-6); % Immature Granulocytes 0.4 % (0-0.5); % Lymphocytes 9.5 % (20.5-51.1); % Monocytes 6.8 % (1.7-9.3); % Neutrophils 81.6 % (42.2-75.2); Absolute Eosinophils 0.2 10^3/uL (0-0.7); Absolute Monocytes 0.7 10^3/uL (0.1-0.6); Absolute Neutrophils 8.9 10^3/uL (1.4-6.5); Hematocrit 38.5 % (37.0-47.0); Hemoglobin 11.9 g/dL (12.0-16.0); Mean Corp Hgb Conc. 30.9 g/dL (33.0-37.0); Mean Corpuscular Hgb 28.5 pg (27.0-31.0); Mean Corpuscular Volume 92.3 fL (81.0-99.0); Mean Platelet Volume 9.9 fL (7.4-10.4); Platelet Count 213 10^3/uL (130-400); Red Blood Cell Count 4.17 10^6/uL (4.20-5.40); Red Cell Dist. Width 14.5 % (11.5-14.5); White Blood Cell Count 10.9 10^3/uL (4.8-10.8)
== END ==
LOC: OIDL 16:17
PROVIDERS: ATTENDING PHYSICIAN Internal Medicine Hematology & Oncology
DX: D47.2 Monoclonal gammopathy (principal); I82.401 Acute embolism and thrombosis of unspecified deep veins of right lower extremity; I82.4Z2 Acute embolism and thrombosis of unspecified deep veins of left distal lower extremity
CPT/HCPCS: 85025

== ENCOUNTER → 2024-05-24 10:26 | Outpatient (REF) | payer MEDICARE, OTHER, SELFPAY ==
[2024-05-24 13:28] LABS: ALT (SGPT) 27 U/L (0-35); AST (SGOT) 27 U/L (14-36); Albumin 4.5 g/dl (3.5-5.0); Alkaline Phosphatase 70 U/L (38-126); Blood Urea Nitrogen 19 mg/dl (7-17); Calcium 9.5 mg/dl (8.4-10.2); Carbon Dioxide 28 mmol/L (22-30); Chloride 113 mmol/L (98-107); Glucose 79 mg/dl (70-99); Potassium 3.9 mmol/L (3.5-5.1); Sodium 150 mmol/L (135-145); Total Bilirubin 0.7 mg/dl (0.2-1.3); Total Protein 6.6 g/dl (6.3-8.2); eGFR 54.87
[2024-05-24 13:33] LABS: Free T4 0.99 ng/dl (0.78-2.19)
== END ==
LOC: HWLAB 10:26
PROVIDERS: ATTENDING PHYSICIAN Internal Medicine Endocrinology, Diabetes & Metabolism; FAMILY PHYSICIAN Family Medicine
DX: D49.7 Neoplasm of unspecified behavior of endocrine glands and other parts of nervous system (principal); E03.9 Hypothyroidism, unspecified; E27.40 Unspecified adrenocortical insufficiency; E23.2 Diabetes insipidus; M81.0 Age-related osteoporosis without current pathological fracture
CPT/HCPCS: 36415; 80053; 84439

== ENCOUNTER → 2024-06-05 10:19 | Outpatient (REF) | payer MEDICARE, OTHER, SELFPAY ==
[2024-06-05 12:20] LABS: ALT (SGPT) 26 U/L (0-35); AST (SGOT) 25 U/L (14-36); Albumin 3.8 g/dl (3.5-5.0); Alkaline Phosphatase 70 U/L (38-126); Blood Urea Nitrogen 18 mg/dl (7-17); Calcium 9.5 mg/dl (8.4-10.2); Carbon Dioxide 29 mmol/L (22-30); Chloride 108 mmol/L (98-107); Glucose 82 mg/dl (70-99); Sodium 143 mmol/L (135-145); Total Bilirubin 0.4 mg/dl (0.2-1.3); Total Protein 6.1 g/dl (6.3-8.2); eGFR 54.87
== END ==
LOC: HWLAB 10:19
PROVIDERS: ATTENDING PHYSICIAN Internal Medicine Endocrinology, Diabetes & Metabolism; FAMILY PHYSICIAN Family Medicine
DX: E23.2 Diabetes insipidus (principal)
CPT/HCPCS: 36415; 80053

== ENCOUNTER → 2024-06-07 11:12 | Outpatient (REF) | payer MEDICARE, OTHER, SELFPAY ==
[2024-06-07 15:33] LABS: D-Dimer 0.63 ug/mlFEU (0.00-0.50)
[2024-06-07 15:50] LABS: Iron 124 ug/dl (37-170)
[2024-06-07 15:59] LABS: Percent Saturation 57 % (20-50); Total Iron Binding Capacity 215 ug/dl (265-497)
[2024-06-07 16:06] LABS: % Basophils 0.7 % (0-2); % Eosinophils 3.1 % (0-6); % Immature Granulocytes 0.7 % (0-0.5); % Neutrophils 58.5 % (42.2-75.2); Absolute Basophils 0.1 10^3/uL (0-0.2); Absolute Eosinophils 0.3 10^3/uL (0-0.7); Absolute Immature Granulocytes 0.1 10^3/uL (0-0.05); Absolute Monocytes 1.1 10^3/uL (0.1-0.6); Hematocrit 40.5 % (37.0-47.0); Hemoglobin 13.1 g/dL (12.0-16.0); Mean Corp Hgb Conc. 32.3 g/dL (33.0-37.0); Mean Corpuscular Hgb 29.5 pg (27.0-31.0); Mean Corpuscular Volume 91.2 fL (81.0-99.0); Nucleated Red Blood Cells % 0 %; Platelet Count 166 10^3/uL (130-400); Red Blood Cell Count 4.44 10^6/uL (4.20-5.40); Red Cell Dist. Width 17.2 % (11.5-14.5); White Blood Cell Count 8.5 10^3/uL (4.8-10.8)
== END ==
LOC: HWLAB 11:12
PROVIDERS: ATTENDING PHYSICIAN Internal Medicine Hematology & Oncology; FAMILY PHYSICIAN Family Medicine
DX: D47.2 Monoclonal gammopathy (principal); I82.401 Acute embolism and thrombosis of unspecified deep veins of right lower extremity; I82.4Z2 Acute embolism and thrombosis of unspecified deep veins of left distal lower extremity; D68.69 Other thrombophilia; D50.9 Iron deficiency anemia, unspecified; R60.0 Localized edema; R60.9 Edema, unspecified
CPT/HCPCS: 36415; 82728; 83540; 83550; 85025; 85379

== ENCOUNTER → 2024-07-11 13:32 | Outpatient (REF) | payer MEDICARE, OTHER, SELFPAY ==
[2024-07-11 16:36] LABS: % Basophils 0.5 % (0-2); % Eosinophils 0.6 % (0-6); % Immature Granulocytes 0.6 % (0-0.5); % Lymphocytes 11.9 % (20.5-51.1); % Monocytes 5.2 % (1.7-9.3); % Neutrophils 81.2 % (42.2-75.2); Absolute Basophils 0.1 10^3/uL (0-0.2); Absolute Eosinophils 0.1 10^3/uL (0-0.7); Absolute Immature Granulocytes 0.1 10^3/uL (0-0.05); Absolute Lymphocytes 1.3 10^3/uL (1.2-3.4); Absolute Monocytes 0.6 10^3/uL (0.1-0.6); Absolute Neutrophils 8.9 10^3/uL (1.4-6.5); Hematocrit 43.4 % (37.0-47.0); Hemoglobin 13.7 g/dL (12.0-16.0); Mean Corp Hgb Conc. 31.6 g/dL (33.0-37.0); Mean Corpuscular Volume 95.2 fL (81.0-99.0); Mean Platelet Volume 11.1 fL (7.4-10.4); Nucleated Red Blood Cells % 0 %; Platelet Count 194 10^3/uL (130-400); Red Blood Cell Count 4.56 10^6/uL (4.20-5.40); Red Cell Dist. Width 16.3 % (11.5-14.5)
[2024-07-11 16:42] LABS: D-Dimer 0.43 ug/mlFEU (0.00-0.50)
[2024-07-11 16:52] LABS: Iron 78 ug/dl (37-170)
[2024-07-11 17:02] LABS: Percent Saturation 33 % (20-50); Total Iron Binding Capacity 232 ug/dl (265-497)
== END ==
LOC: HWLAB 13:32
PROVIDERS: ATTENDING PHYSICIAN Internal Medicine Hematology & Oncology; FAMILY PHYSICIAN Family Medicine
DX: D47.2 Monoclonal gammopathy (principal); I82.401 Acute embolism and thrombosis of unspecified deep veins of right lower extremity; I82.4Z2 Acute embolism and thrombosis of unspecified deep veins of left distal lower extremity; D68.69 Other thrombophilia; D50.9 Iron deficiency anemia, unspecified; R60.0 Localized edema; R60.9 Edema, unspecified
CPT/HCPCS: 36415; 82728; 83540; 83550; 85025; 85379

== ENCOUNTER → 2024-09-10 13:20 | Outpatient (REF) | payer MEDICARE, OTHER, SELFPAY | LOC: PAVMRI 13:20 | PROVIDERS: ATTENDING PHYSICIAN Neurological Surgery; FAMILY PHYSICIAN Family Medicine | DX: D35.2 Benign neoplasm of pituitary gland (principal) | CPT/HCPCS: 70553; A9575 ==

== ENCOUNTER → 2024-10-22 12:47 | Outpatient (REF) | payer MEDICARE, OTHER, SELFPAY ==
[2024-10-22 16:28] LABS: Iron 92 ug/dl (37-170)
[2024-10-22 16:29] LABS: Hematocrit 42.3 % (37.0-47.0); Hemoglobin 13.5 g/dL (12.0-16.0); Mean Corp Hgb Conc. 31.9 g/dL (33.0-37.0); Mean Corpuscular Volume 95.7 fL (81.0-99.0); Nucleated Red Blood Cells % 0 %; Platelet Count 198 10^3/uL (130-400); Red Cell Dist. Width 13.7 % (11.5-14.5)
[2024-10-22 16:37] LABS: Total Iron Binding Capacity 228 ug/dl (265-497)
[2024-10-22 17:11] LABS: Ferritin 231.0 ng/ml (11.1-264.0)
== END ==
LOC: HWLAB 12:47
PROVIDERS: ATTENDING PHYSICIAN Internal Medicine Hematology & Oncology; FAMILY PHYSICIAN Family Medicine; REFERRING PHYSICIAN Internal Medicine Endocrinology, Diabetes & Metabolism
DX: D47.2 Monoclonal gammopathy (principal); I82.401 Acute embolism and thrombosis of unspecified deep veins of right lower extremity; R60.9 Edema, unspecified; E23.0 Hypopituitarism
CPT/HCPCS: 36415; 82728; 83540; 83550; 85025

== ENCOUNTER → 2024-10-25 10:11 | Outpatient (REF) | payer MEDICARE, OTHER, SELFPAY ==
[2024-10-25 12:30] LABS: ALT (SGPT) 25 U/L (0-35); AST (SGOT) 25 U/L (14-36); Albumin 4.2 g/dl (3.5-5.0); Alkaline Phosphatase 52 U/L (38-126); Blood Urea Nitrogen 21 mg/dl (7-17); Calcium 10.0 mg/dl (8.4-10.2); Carbon Dioxide 28 mmol/L (22-30); Chloride 110 mmol/L (98-107); Glucose 79 mg/dl (70-99); Potassium 3.7 mmol/L (3.5-5.1); Sodium 142 mmol/L (135-145); Total Protein 6.7 g/dl (6.3-8.2); eGFR 54.53
== END ==
LOC: HWLAB 10:11
PROVIDERS: ATTENDING PHYSICIAN Internal Medicine Endocrinology, Diabetes & Metabolism; FAMILY PHYSICIAN Family Medicine; REFERRING PHYSICIAN Internal Medicine Hematology & Oncology
DX: D49.7 Neoplasm of unspecified behavior of endocrine glands and other parts of nervous system (principal); E03.9 Hypothyroidism, unspecified; E27.40 Unspecified adrenocortical insufficiency; E23.2 Diabetes insipidus; M81.0 Age-related osteoporosis without current pathological fracture
CPT/HCPCS: 36415; 80053

== ENCOUNTER → 2025-01-03 13:09 | Outpatient (REF) | payer MEDICARE, OTHER, SELFPAY | LOC: RAD 13:09 | PROVIDERS: ATTENDING PHYSICIAN Nurse Practitioner Primary Care; FAMILY PHYSICIAN Family Medicine | DX: N64.4 Mastodynia (principal); R07.89 Other chest pain; S20.211A Contusion of right front wall of thorax, initial encounter | CPT/HCPCS: 71101 ==

== ENCOUNTER → 2025-01-15 14:20 | Outpatient (REF) | payer MEDICARE, OTHER, SELFPAY ==
[2025-01-15 14:56] LABS: Hematocrit 44.9 % (37.0-47.0); Hemoglobin 13.9 g/dL (12.0-16.0); Mean Corp Hgb Conc. 31.0 g/dL (33.0-37.0); Mean Corpuscular Volume 97.6 fL (81.0-99.0); Nucleated Red Blood Cells % 0 %; Platelet Count 193 10^3/uL (130-400); Red Cell Dist. Width 14.0 % (11.5-14.5)
[2025-01-15 15:22] LABS: Iron 62 ug/dl (37-170)
[2025-01-15 15:32] LABS: Total Iron Binding Capacity 242 ug/dl (265-497)
[2025-01-15 16:29] LABS: Ferritin 223.0 ng/ml (11.1-264.0)
== END ==
LOC: REG 14:20
PROVIDERS: ATTENDING PHYSICIAN Internal Medicine Hematology & Oncology
DX: D47.2 Monoclonal gammopathy (principal); I82.401 Acute embolism and thrombosis of unspecified deep veins of right lower extremity; I82.4Z2 Acute embolism and thrombosis of unspecified deep veins of left distal lower extremity; D68.69 Other thrombophilia; D50.9 Iron deficiency anemia, unspecified; R60.0 Localized edema; R60.9 Edema, unspecified
CPT/HCPCS: 36415; 82728; 83540; 83550; 85025